=== PATIENT | female | born 1940 | race Caucasian/White ===

== ENCOUNTER → 2018-01-29 10:26 | Outpatient (CLI) | payer MEDICARE, OTHER, SELFPAY | PROVIDERS: Family Provider Nurse Practitioner; PCP Nurse Practitioner; Visit Provider Internal Medicine Hematology & Oncology | DX: Z12.31 Encounter for screening mammogram for malignant neoplasm of breast (principal); Z78.0 Asymptomatic menopausal state; C91.10 Chronic lymphocytic leukemia of B-cell type not having achieved remission | CPT/HCPCS: 77063; 77067 ==

== ENCOUNTER 2018-10-06 20:42 | Emergency (ER) | payer MEDICARE, OTHER, SELFPAY ==
[2018-09-13 15:13] VITALS: BMI 22.7
[2018-10-06 20:43] VITALS: BP 147/78; PULSE 78; RESP 16; TEMP 36.3; O2SAT 96; BMI 21.9
--- NOTE | 2018-10-06 21:28 | CT_ITS ---
HISTORY: FALL DOWN STAIRS EXAM/TECHNIQUE: CT Spine Lumbar W/O Contrast: Multiplanar reformats provided. COMPARISON: None. FINDINGS: # of images incl. paperwork: 364 Moderate acute compression fracture of the T12 vertebral body with minimal retropulsion but no significant spinal canal narrowing. No apparent extension into the posterior elements. No other acute fracture. Moderate chronic compression fracture L5. Bony demineralization. Mild 1 mm degenerative anterolisthesis of L5 on S1. Alignment otherwise anatomic. At L4-5, moderate diffuse disc bulge and severe bilateral set degeneration causes high-grade spinal canal narrowing. Only mild foraminal narrowing. Less prominent degenerative changes at other levels; no other high-grade spinal canal narrowing. Mild prevertebral edema adjacent to the T12 fracture. No other acute finding in the paraspinal soft tissues. Calcific atherosclerosis. CT/Spine Lumbar without Contrast IMPRESSION: Moderate acute compression fracture of the T12 vertebral body. Other chronic findings as above. Individualized dose optimization techniques were used for this CT. at 2201 Reported and signed by: Marc Kelly MD Electronically Signed: Marc Kelly, at 22:00 EDT Tel , Service support ,
[2018-10-06] MEDS: HYDROcodone Bitartrate/Apap 5/325 Tablet PO ×2 (21:32→22:54)
[2018-10-06] MEDS: Ondansetron ODT 4 MG Tablet PO (21:32)
--- NOTE | 2018-10-06 22:30 | ED.VISSUMM ---
- ER Visit Summary Date of Service: 10/06/18 Chief Complaint: Back pain History of Present Illness: The patient is a 78 F who states that she was almost down stairs when she thought she was early on the ground and sustained a forward fall with a twist. She has pain in her lower back. She has midline pain and around T11 and T12. She also has pain slightly inferior in the L3-L4 region. She denies any bowel or bladder dysfunction. No paresthesias. No leg weakness. She has a special needs son at home. Physical Examination: Afebrile vital signs stable Gen: Well-nourished well-developed Head: Normocephalic atraumatic Eyes: Perrl EOMI ENT: TMs clear no rhinorrhea moist mucous membranes Neck: Supple no lymphadenopathy no JVD nontender CVS: Regular rate rhythm no murmurs normal S1-S2 Respiratory: No distress clear to auscultation bilaterally chest nontender Abdomen: Soft nontender nondistended normal bowel sounds no masses Back: She with tenderness in the T11-T12 area and diffusely through the lower lumbar region. She has painful range of motion. Extremity: Nontender no edema Skin: Normal color no rash Neuro: alert orientated ?3 CN II-XII intact normal strength sensation reflexes Psych: Normal affect normal mood Test Results: CT demonstrates an acute moderate T12 compression fracture Emergency Department Course and Treatment: Patient received [place]. I also gave her an Ativan at her request for her anxiety. Talk to the patient about admitting for pain control concern for her well-being at home. She states that because of her son's needs she cannot stay. I will send her home with some [place] tonight and write a prescription for same. I have asked that she called her doctor's office tomorrow. I will leave a message for social work to contact her tomorrow to see what we can do to help her. She was advised that she may return at any time if she has concerns or is worsening. I have paged her primary care physician. Impression: 1. T12 compression fracture This note was generated with [employer] Network[employer] software. It may contain incorrect words, spelling, and punctuation that were not noted in review of the chart prior to signing ED Disposition - Plan for ED Patient: Disposition: Home or Assisted Living Instructions: ED Fx Comp Vertebral Prescriptions: Hydrocodone Bitart/Apap 5-325 [[place] 5MG-325MG] 1 tablet PO Q6H PRN PRN 3 Days #12 tablet PRN Reason: Pain Referrals: Taylor Gross, FLIGHT OPERATIONS INSPECTOR-C [Primary Care Provider] - As soon as possible
--- NOTE | 2018-10-06 22:35 | ED.DCSUM_ITS ---
- ER Visit Summary Date of Service: 10/06/18 Chief Complaint: Back pain History of Present Illness: The patient is a 78 F who states that she was almost down stairs when she thought she was early on the ground and sustained a forward fall with a twist. She has pain in her lower back. She has midline pain and around T11 and T12. She also has pain slightly inferior in the L3-L4 region. She denies any bowel or bladder dysfunction. No paresthesias. No leg weakness. She has a special needs son at home. Physical Examination: Afebrile vital signs stable Gen: Well-nourished well-developed Head: Normocephalic atraumatic Eyes: Perrl EOMI ENT: TMs clear no rhinorrhea moist mucous membranes Neck: Supple no lymphadenopathy no JVD nontender CVS: Regular rate rhythm no murmurs normal S1-S2 Respiratory: No distress clear to auscultation bilaterally chest nontender Abdomen: Soft nontender nondistended normal bowel sounds no masses Back: She with tenderness in the T11-T12 area and diffusely through the lower lumbar region. She has painful range of motion. Extremity: Nontender no edema Skin: Normal color no rash Neuro: alert orientated ?3 CN II-XII intact normal strength sensation reflexes Psych: Normal affect normal mood Test Results: CT demonstrates an acute moderate T12 compression fracture Emergency Department Course and Treatment: Patient received [place]. I also gave her an Ativan at her request for her anxiety. Talk to the patient about admitting for pain control concern for her well-being at home. She states that because of her son's needs she cannot stay. I will send her home with some [place] tonight and write a prescription for same. I have asked that she called her doctor's office tomorrow. I will leave a message for social work to contact her tomorrow to see what we can do to help her. She was advised that she may return at any time if she has concerns or is worsening. I have paged her primary care physician. Impression: 1. T12 compression fracture This note was generated with T[employer] software. It may contain incorrect words, spelling, and punctuation that were not noted in review of the chart prior to signing ED Disposition - Plan for ED Patient: Disposition: Home or Assisted Living Instructions: ED Fx Comp Vertebral Prescriptions: Hydrocodone Bitart/Apap 5-325 [[place] 5MG-325MG] 1 tablet PO Q6H PRN PRN 3 Days #12 tablet PRN Reason: Pain Referrals: Taylor Gross, ARCHITECTURAL DRAFTING INSTRUCTOR-C [Primary Care Provider] - As soon as possible
[2018-10-06 23:28] VITALS: RESP 16; O2SAT 97
== END 2018-10-06 23:29 | disposition home or self-care (01) ==
PROVIDERS: Emergency Provider Emergency Medicine; Family Provider Nurse Practitioner; PCP Nurse Practitioner
DX: S22.089A Unspecified fracture of T11-T12 vertebra, initial encounter for closed fracture (principal); W10.9XXA Fall (on) (from) unspecified stairs and steps, initial encounter; Y93.9 Activity, unspecified; Y92.9 Unspecified place or not applicable; F41.9 Anxiety disorder, unspecified; I10 Essential (primary) hypertension
CPT/HCPCS: 72131; 99283

== ENCOUNTER → 2019-04-13 13:42 | Outpatient (CLI) | payer MEDICARE, OTHER, SELFPAY ==
[2019-03-28 13:55] VITALS: BMI 20.4
[2019-04-13 14:00] LABS: Potassium 4.2 mmol/L (3.5-5.1)
== END ==
PROVIDERS: Family Provider Nurse Practitioner; PCP Nurse Practitioner; Visit Provider Nurse Practitioner
DX: E78.5 Hyperlipidemia, unspecified (principal)
CPT/HCPCS: 84132

== ENCOUNTER → 2019-05-09 09:44 | Outpatient (CLI) | payer MEDICARE, OTHER, SELFPAY ==
[2019-03-28 13:55] VITALS: BMI 20.4
--- NOTE | 2019-05-09 09:46 | BI_ITS ---
MAMMOGRAPHY - BILATERAL SCREENING REASON FOR EXAM: Female, 78 years old. Routine annual screening examination. PERTINENT HISTORY: Sister with breast cancer. TECHNIQUE: Digital bilateral breast zari (3D mammographic acquisition) in the CC and MLO projections. 2-D mediolateral oblique (MLO) and craniocaudad (CC) views of both breasts were obtained. CAD: Full Field Digital Mammography with Computer Added Detection was performed. COMPARISON: Comparison is made with prior study of January 29, 2018 and January 28, 2017. FINDINGS: Breast Composition: The breasts are heterogeneously dense, which may obscure small masses. There are no dominant masses or suspicious calcifications. No other significant abnormalities are identified. There has been no significant change since the prior study. BI/SCREEN MAMM (CAD) W/ZARI BILAT IMPRESSION: Stable bilateral screening mammogram. Yearly follow-up mammogram recommended. (A) ASSESSMENT CATEGORY: BIRADS Category 1: Negative. A letter regarding these results will be sent to the patient by the facility within 30 days. Approximately 10% of breast cancers are not detected by mammography. A normal mammogram should not delay biopsy of a clinically suspicious abnormality. [id number] Electronically Signed: Mk Burch, at 12:08 EST , Service support ,
--- NOTE | 2019-05-09 09:48 | BD_ITS ---
STUDY: DUAL ENERGY X-RAY ABSORPTIOMETRY / DXA REASON FOR EXAM: Female, 78 years old. The patient is postmenopausal. Loss of height. TECHNIQUE: Bone Mineral Density (BMD) measurements of lumbar spine and bilateral hips were obtained. COMPARISON: Comparison is made with prior examination dated January 28, 2017. FINDINGS: Lumbar Spine (L1-L4): g/cm2 (0.977) / T-score (-1.9) / Z-score (-0.1) Findings are suggestive of osteopenia with a moderate fracture risk. Increased kyphosis. Almost complete collapse of the T12 vertebrae. Left Femur Total: g/cm2 (0.824) / T-score (-1.5) / Z-score (0.4) Left Femoral Neck: g/cm2 (0.736) / T-score (-2.2) / Z-score (-0.1) Right Femur Total: g/cm2 (0.761) / T-score (-2.0) / Z-score (-0.1) Right Femoral Neck: g/cm2 (0.712) / T-score (-2.3) / Z-score (-0.3) The T-Scores on the most recent prior examination were: Lumbar Spine (L1-L4): There has been improvement of bone density since the previous examination. Left Femur Total: which represents an improvement of 3.4%. Right Femur Total: which represents an improvement of 3.7%. BD/Dexa Bone Density Study IMPRESSION: The patient is considered osteopenic as outlined below according to World Rex Organization (WHO) criteria with a high fracture risk. There has been improvement of bone density since the previous examination. Reference Information: The T-score is the number of standard deviations above or below the standard which is normal for young adults at their peak bone mineral density. The World Health Organization (WHO) interprets the T-scores as follows: Above -1 Normal bone density Between -1 and -2.5 Osteopenia Equal to / or below -2.5 Osteoporosis As a practical clinical guideline, osteopenia may be graded as follows: Mild -1 through -1.5 Moderate -1.6 through -2.0 Severe -2.1 through -2.4 The Z-score is the number of standard deviations above or below age-matched controls. A Z-score of less than -1.5 would be considered abnormal. References: 1. NIH Osteoporosis and Related Bone Diseases http://www.osteo.org 2. International Society for Clinical Densitometry http://www.iscd.org 3. National Osteoporosis Foundation http://www.nof.org Electronically Signed: Mk Burch, at 15:39 EST , Service support ,
== END ==
PROVIDERS: Family Provider Nurse Practitioner; PCP Nurse Practitioner; Referring Provider Nurse Practitioner; Visit Provider Nurse Practitioner
DX: M81.0 Age-related osteoporosis without current pathological fracture (principal); Z12.31 Encounter for screening mammogram for malignant neoplasm of breast; Z80.3 Family history of malignant neoplasm of breast; Z78.0 Asymptomatic menopausal state
CPT/HCPCS: 77063; 77067; 77080

== ENCOUNTER 2019-11-15 05:54 | Day surgery (SDC) | payer MEDICARE, OTHER, SELFPAY ==
--- NOTE | 2019-11-08 02:55 | HP_ITS ---
Intake Vital Signs 11/08/19 BMI 20.7 11/08/19 Height 5 ft 2.6 in 11/08/19 Weight: 123 lb 11/08/19 BMI 22.0 11/08/19 BP 143/85 H 11/08/19 Blood Pressure Location Rt brachial 11/08/19 Position Sitting 11/08/19 Respiration 18 11/08/19 Pulse 82 11/08/19 Pulse Source Monitor 11/08/19 Temp 97.8 F 11/08/19 Temp Source Temporal 11/08/19 Pulse Oximetry (%) 95 11/08/19 Oxygen Delivery Method room air Intake Visit Reasons: PORT PLACEMENT Chief Complaint: port placement Decorating Inspector Required: No Is patient in pain?: No Allergies POLLEN Adverse Reaction (Mild, Uncoded 11/08/19 14:32) Other Medications Multivitamin [Multiple Vitamins] 1 ea PO DAILY 01/06/17 [History Confirmed 11/08/19] Ibandronate Sodium [Boniva] 150 mg PO Q30D 06/23/17 [History Confirmed 11/08/19] Calcium Carbonate [Calcium] 2 tab PO BID 12/01/17 [History Confirmed 11/08/19] Lorazepam [Ativan] 0.5 mg PO DAILY PRN PRN 12/01/17 [History Confirmed 11/08/19] Cholecalciferol (Vitamin D3) [Vitamin D3] 2,000 unit PO DAILY 07/06/18 [History Confirmed 11/08/19] Hydrochlorothiazide 6 mg PO DAILY 10/06/18 [History Confirmed 11/08/19] Naproxen Sodium [Aleve] 220 mg PO DAILY PRN 03/28/19 [History Confirmed 11/08/19] Guaifenesin [Mucinex] 600 mg PO BID PRN 06/19/19 [History Confirmed 11/08/19] PFS Medical History Compression fracture (Acute) History of urinary tract infection (Acute) History of pneumonia (Acute) Measles (Acute) Mumps (Acute) bilateral ankle surgery (Acute) varicose veins (Acute) Hypertension (Chronic) Surgical History History of foot surgery (Acute) Family History Father Lung cancer Mother CVA (cerebral vascular accident) Social History (Updated 11/08/19 @ 14:[address] Liliam Zelaya MD) Smoking Status: Former smoker HPI HPI HPI: JOO BROOKS, is a 79 F who presents to the office today for HPI HPI Surgical H&P: Yes HPI: JOO BROOKS, is a 79 F who presents to the office today for port placement due to CLL. Patient's hemoglobin did drop below 10 for her hemoglobin tests Dr. Yates plan to start patient on chemotherapy. Patient's white blood cell count has been about 400. Patient does have lymphadenopathy cervical and axillary denies any pain or any other symptoms. ROS General General: No weight change, appetite, fatigue, colon cancer, breast cancer or weakness HEENT HEENT: No difficulty swallowing, eye injury, eye surgery, swollen glands or hoarseness Endo Endocrine: No thyroid disease, diabetes mellitus, thyroid cancer, Hair loss, heat intolerance or cold intolerance Skin Skin: No rash or changing moles Breast Breast: Yes nipple discharge; no left breast lump, right breast lump, breast pain, abnormal mammogram, abnormal US or breast enlargement Musc Musculoskeletal: Yes back problems; no arthritis, rheumatoid arthritis, gout or joint pain Cardio Cardiovascular: Yes high blood pressure; no murmur, pacemaker, heart disease, atrial fibrillation, heart attack, heart stent, palpitations, shortness of breat with exertion or chest pain Psych Psychiatric: Yes anxiety; no depression or hearing voices Resp Respiratory: No shortness of breath, No sleep apnea, No cough, No COPD, No asthma, No emphysema, No wheezing Gastro Gastrointestinal: No abdominal pain, No nausea or vomiting, No diarrhea, No constipation, No blood in stool, No acid reflux, Yes hemorrhoids, No ulcers, No gallbladder problem, No black,tarry stools Darryn Hematologic: No blood thinners, Yes blood disorders, No bleeding, Yes anemia, No blood clots Neuro Neurologic: No system reviewed and no additional complaints, except as docu, No as per HPI, No abnormal walking, No abnormal hearing, No abnormal movements, No abnormal speech, No behavioral changes, No burning sensations, No confusion, No seizure-like activity, No unsteadiness, No dizziness, No localized weakness, No frequent falls, No headache(s), No lack of coordination, No loss of vision, No memory loss, No numbness, No other visual disturbances, No radiating pain, No restless legs, No sensory deficit, No fainting, No tingling, No tremor(s), No weakness, No other Exam Const General: cooperative, comfortable, no acute distress, well developed Neck Lymphatic: lymphadenopathy (Bilateral upper cervical) Chest Chest palpation & inspection: normal inspection of the chest, normal palpation of entire chest wall Breast Palpation: Yes nipple discharge Cardio Heart Sounds: no murmurs GI Palpation: soft Psych Affect: normal affect Assessment & Plan Problems 1. Adjustment and management of vascular access device Z45.2 2. CLL (chronic lymphocytic leukemia) C91.10 3. Anemia D64.9 Plan I have discussed above with the patient- Port-a-Cath placement. Right possible left Patient has been counseled as to the risks/benefits of the procedure. I have explained the risks of the surgery, including but not limited to: infection, bleeding, injury to any blood vessels/nerves, injury to lungs (such as pneumothorax or hemothorax and need for chest tube), not having any access, nonfunctioning of port due to thrombosis, infection of port, etc. the patient understands and agrees to proceed. I have answered all the patient's questions to the patient?s satisfaction and the patient has no further questions. Liliam Zelaya M.D. Pager: [phone] [facility] [address] [place] [address], [address] [place] [address] Office: [phone] Plan Detail Follow Up We will schedule port placement for 11/14 Coding Level of Care Code Off vis,new,level 3 Diagnoses Adjustment and management of vascular access device Z45.2 CLL (chronic lymphocytic leukemia) C91.10 Anemia D64.9 11/08/19 6082 <Electronically signed by Liliam Taylor am, MD> Date _ Liliam Zelaya MD I have re-examined the patient. There are no clinical changes since date of exam. We discussed the current risks associated with COVID-19. While it is understood that there is a community spread of COVID-19, the risk of abelino COVID-19 while at [facility] ([facility]) is very low; however, the risk cannot be completely mitigated because of the community spread of the disease. We discussed in detail the risk of exposure to and/or potential harm posed by the COVID-19 virus with having a surgery/procedure at this time versus the risk of delaying the surgery/procedure. It is not possible to know either the risk of delaying the surgery or procedure or chance of getting an infection with perfect accuracy, but a joint decision was made to proceed at this time with the scheduled surgery/procedure as indicated on the consent form. Patient was notified that we will need to comply with any screening or testing [facility] wishes to perform or that surgery may be delayed for any positive results.
[2019-11-08 14:32] VITALS: BMI 20.7
[2019-11-15 06:17] VITALS: BP 147/79; PULSE 69; RESP 16; TEMP 36.6; O2SAT 97; BMI 21.5
[2019-11-15] MEDS: Lactated Ringers 1,000 ML 100 ML IV (07:27)
[2019-11-15] MEDS: Bupivacaine Mpf 0.5% 30 ML VIAL (07:34)
[2019-11-15] MEDS: Cefazolin 2 GM in 0.9% Normal Saline 100 ML IV (07:37)
--- NOTE | 2019-11-15 08:25 | PCM.OPRPT ---
Report of Operation Date of Procedure: 11/15/19 Pre-Operative Diagnosis: z45.2, CLL Post-Operative Diagnosis: Same Surgery/Procedure Performed:: 1. Insertion of right IJ Port-A-Cath. 2. Use of ultrasound. 3. Use of fluoroscopy Type of Anesthesia:: Local MAC Anesthesiologist: Augusto Veliz Special Medications: Ancef 2 g IV x1 Specimen's removed: None Estimated Blood Loss (mL): < 10 cc Fluids Replaced: 500 cc Description of Procedure: After informed consent was given, the patient was brought to the operating room and placed in the supine position. Appropriate time out protocol was followed. He was then given IV conscious sedation for anesthesia. The patient's bilateral upper chest and neck were then prepped with a surgical skin preparation and sterile surgical drapes were placed. After proper landmarks were ascertained, the skin at the upper right chest area was then infiltrated with 1:1 mixture of 1% lidocaine with epinephrine and 0.5% marcaine. A needle trocar was then inserted into the right internal jugular vein with ultrasound guidance-multiple vessels were viewed with u/s and the right IJ was chosen-- and there was good aspiration of venous blood. A wire was then threaded into the needle trocar and this was visualized under fluoroscopy to ensure that the wire was in the superior vena cava. Once this was done, then the needle trocar was removed. A small skin mert was made with an 11 blade knife at the wire entrance site. The dilator with the introducer sheath attached was then placed over the wire into the right internal jugular vein via the Seldinger technique and this was visualized under fluoroscopy. The dilator and sheath were in proper position as visualized by fluoroscopy. A subcutaneous pocket was then created caudad to the catheter insertion site. A transverse skin incision was made after the skin and subcutaneous tissues were infiltrated with local anesthetic. Blunt dissection was then used to create a space large enough for placement of the subcutaneous port. The catheter was then tunneled into the subcutaneous pocket. The wire and dilator were then removed. The catheter was then threaded into the introducer sheath and was positioned with its tip at the junction of the superior vena cava and the right atrium as visualized under fluoroscopy. The excess catheter was transected. The catheter was then attached to the subcutaneous port using manufacturers guidelines. The catheter was flushed with a heparin saline mixture prior to placement. Hemostasis was carefully controlled with electrocautery. The port was sutured to the subcutaneous fascia using 2-0 Vicryl suture at two sites. The port was then placed in the subcutaneous pocket. The incision were reapproximated with interrupted subdermal 3-0 vicryl sutures. The skin was reapproximated with 3-0 nylon suture in a interrupted fashion. Steristrips were used for reinforcement of the skin closure at IJ insertion site and a sterile opsite dressings were applied. The patient tolerated the procedure well. Implants Used: Bard PowerPort isp M.R.I. 6 Fr Lot [id number] ref [id number] Grafts/Implants Used: [employer] PowerPort isp M.R.I. 6 Fr Lot [id number] ref [id number] - Complications none
--- NOTE | 2019-11-15 08:29 | DCINST_ITS ---
Discharge Diet: Light diet - advance as tolerated Lifting Restrictions: no lifting > 10 lb on right arm Call your doctor if your incision/area has: Continuous Slow Oozing, Sudden Increased Bleeding, Increased Pain/ Swelling, Increased Redness, Foul Smelling Discharge, Swelling at the incision site Call your doctor if you observe: Fever of 101 or Higher Remove Dressing in (days):: 3 - Okay to keep OpSite on port site for 3 days okay to remove the neck site tomorrow, Steri-Strips down for 7 to 10 days after 10 days okay to remove Allergies/Adverse Reactions: Allergies POLLEN Adverse Reaction (Mild, Uncoded 11/15/19 06:15) Other WATERY EYES, SNEEZING Medications to take at Discharge Multivitamin [Multiple Vitamins] 1 ea PO DAILY 01/06/17 Ibandronate Sodium [Boniva] 150 mg PO Q30D 06/23/17 Calcium Carbonate [Calcium] 2 tab PO BID 12/01/17 Lorazepam [Ativan] 0.5 mg PO DAILY PRN PRN 12/01/17 Cholecalciferol (Vitamin D3) [Vitamin D3] 2,000 unit PO DAILY 07/06/18 Hydrochlorothiazide 6.25 mg PO DAILY 10/06/18 Naproxen Sodium [Aleve] 220 mg PO DAILY PRN 03/28/19 Guaifenesin [Mucinex] 600 mg PO BID PRN 06/19/19 Acyclovir 400 mg PO BID 30 Days #60 tab 11/09/19 Allopurinol 300 mg PO DAILY 7 Days #7 tab 11/09/19 Lidocaine/Prilocaine [Lidocaine-Prilocaine Cream] 1 applicatio TP DAILY PRN PRN 30 Days #1 tube 11/09/19 Ondansetron [Zofran] 8 mg PO Q8H PRN PRN 10 Days #30 tab 11/09/19 Smz/Tmp Ds [Bactrim Ds] 1 tab PO DAILY 28 Days #12 tab 11/09/19 traMADol [Ultram (G)] 50 mg PO Q6H PRN PRN 2 Days #5 tablet 11/15/19 Primary Care Physician: Taylor Gross NP-C [Primary Care Provider] - Test Results: Test results from this visit will be discussed in further detail at your follow- up appointment, if applicable. Please Follow Up With: Robotham,Liliam, MD - After 5 PM and on the weekends if he have any concerns call [phone]. When: Call the office for f/u appointment in about 10 days for suture removal Proposed Discharge Date: 11/15/19
[2019-11-15 08:35] VITALS: BP 116/73; BP 147/79; PULSE 70; RESP 16; TEMP 36.6; O2SAT 95
[2019-11-15 08:40] VITALS: BP 118/76; BP 147/79; PULSE 71; RESP 16; O2SAT 97
--- NOTE | 2019-11-15 08:40 | RAD_ITS ---
STUDY: X-RAY CHEST REASON FOR EXAM: Female, 79 years old. Post op port placement TECHNIQUE: Single AP portable view of the chest. COMPARISON: None. FINDINGS: EKG leads overlie the chest. A right subclavian port is in place, tip is in the distal SVC, no pneumothorax or mediastinal shift. Lungs are expanded without a superimposed acute pulmonary process. There is no demonstrated pleural abnormality. Normal size heart. Normal mediastinum and flakito. Normal visualized pulmonary arteries. Normal visualized aortic arch and descending thoracic aorta. There are diffuse degenerative changes of the visualized thoracic spine. Normal visualized ribs, clavicles, and shoulders. There is no demonstrated abnormality of the visualized soft tissue structures of the upper abdomen. RAD/CXR for Line Placement IMPRESSION: Right subclavian port tip in the distal SVC, no pneumothorax or mediastinal shift. No acute pulmonary process Electronically Signed: Michael Chang MD at 8:56 EDT , Service support ,
[2019-11-15 08:45] VITALS: BP 123/75; BP 147/79; PULSE 75; RESP 16; O2SAT 96
[2019-11-15 08:50] VITALS: BP 128/73; BP 147/79; PULSE 67; RESP 16; TEMP 36.6; O2SAT 98
[2019-11-15 09:20] VITALS: BP 140/85; BP 147/79; PULSE 71; RESP 16; TEMP 36.9; O2SAT 95
== END 2019-11-15 09:40 | disposition home or self-care (01) ==
LOC: SDC 05:54 → AC 05:55
PROVIDERS: Anesthesiology; PCP Nurse Practitioner; Referring Provider Surgery; Visit Provider Surgery
PROC: (CPT 36561; principal; 2019-11-15 07:15)
DX: Z45.2 Encounter for adjustment and management of vascular access device (principal); C91.10 Chronic lymphocytic leukemia of B-cell type not having achieved remission; Z11.59 Encounter for screening for other viral diseases; I10 Essential (primary) hypertension; Z87.440 Personal history of urinary (tract) infections; Z87.01 Personal history of pneumonia (recurrent); Z79.899 Other long term (current) drug therapy; Z87.891 Personal history of nicotine dependence
CPT/HCPCS: 00532; 36561; 71045; 77001; 87635; G2023; U0003

== ENCOUNTER 2019-11-30 13:36 | Emergency (ER) | payer MEDICARE, OTHER, SELFPAY ==
[2019-11-27 10:12] VITALS: BMI 19.8
[2019-11-30 13:37] VITALS: BP 139/81; PULSE 98; RESP 18; TEMP 37.3; O2SAT 97; BMI 21.0
[2019-11-30 14:36] LABS: Absolute Lymphocyte Count 1.64 X10^3/uL (0.83-4.51); Absolute Neutrophil Count 12.3 X10^3/uL (2.0-7.7); Basophil# 0.05 X10^3/uL; Basophil% 0.3 % (0-1); Eosinophil# 0.02 X10^3/uL; Eosinophils% 0.1 % (0-5); Hemoglobin 10.1 g/dL (12.0-15.0); Lymphocyte # 1.64 X10^3/ul (4.0); Lymphocyte % 11.1 % (19-41); Mean Corp Hgb Conc 31.6 g/dL (32-36); Mean Corpuscular Hgb 30.6 pg (27.0-32.0); Mean Platelet Vol. 11.4 fl (6.2-12.0); Monocyte# 0.58 X10^3/uL; Monocyte% 3.9 % (0-10); NRBC Flagged by Analyzer 0 % (0-5); Neutrophil # 12.32 X10^3/uL (2.7-7.7); Neutrophil % 83.6 % (47-70); Platelet Count 120 K/mm3 (150-450); RBC Distribution Width CV 14.2 % (11.6-14.6); RBC Distribution Width SD 49.3 fl (35.1-43.9); White Blood Count 14.8 K/mm3 (4.4-11.0)
[2019-11-30 14:49] LABS: Bacteria 0 SEEN /hpf (None Seen); Color, Urine Yellow (Yellow); Glucose, Dipstick Normal (Normal); Ketone-Dipstick Negative (Negative); Leukocyte Esterase-Dipstick 25 /ul (Negative); Mucous, Urine 0 SEEN /hpf (<or=2+); Nitrite-Dipstick Negative (Negative); Occult Blood-Urine 25 /ul (Negative); Protein-Dipstick Negative (Negative); Specific Gravity, Urine 1.015 (1.002-1.030); Squamous Epithelial Cells - UA 0 SEEN /hpf (5-10); Urine Bilirubin Dipstick Negative (Negative); Urine Clarity Sl. Cloudy (Clear); Urine Urobilinogen Normal (Normal)
[2019-11-30 14:50] LABS: Anion Gap 7 (5-15); BUN 20 mg/dL (7-18); BUN/Creat Ratio 23.4 RATIO (10-20); Calcium,Total 8.6 mg/dL (8.5-10.1); Chloride 106 mmol/L (98-107); Creatinine, Serum 0.85 mg/dL (0.55-1.02); EST Glomerular Filtration Rate 68 mL/min (>60); Est Glom Filt Rate - Afr Amer 83 mL/min (>60); Estimated Creatinine Clearance 43.14 ml/min; Glucose 102 mg/dL (74-106); Potassium 4.2 mmol/L (3.5-5.1); Sodium Level 137 mmol/L (136-145)
[2019-11-30 14:55] LABS: Red Blood Cells-Urine 0-5 SEEN /hpf (0-5); White Blood Cells 0-5 SEEN /hpf (0-5)
--- NOTE | 2019-11-30 15:32 | ED.DCSUM_ITS ---
History of Present Illness Chief Complaint: Fever Narrative: Patient presenting for evaluation secondary to a fever. Patient has an underlying history of leukemia and receiving chemotherapy for this. Last chemotherapy was around a week ago. Patient states that today she started to develop feelings of fever, and did note a objective fever at home over 100.4. She states that her T-max was around 101. Patient denies any other associated symptoms however. She denies any sore throat, cough, nausea, vomiting, diarr hea, abdominal pain, dysuria, headaches, neck stiffness. Patient states that she is presenting because she was told to come in anytime she has a fever due to her chemotherapy status. Review of systems otherwise negative. Past Medical History - Allergies and Home Meds Allergies/Adverse Reactions: Allergies POLLEN Adverse Reaction (Mild, Uncoded 11/27/19 10:11) Other WATERY EYES, SNEEZING Primary Care Physician: Taylor Gross NP-C [Primary Care Provider] - Prior records reviewed: Yes Past Medical History: - - CLL Lives: Alone Smoking Status: Never smoker Alcohol: None Drugs: None Review of Systems All systems negative except as indicated General: Reports: Fever Eyes: Denies: Visual changes - bilaterally, Diplopia ENT: Denies: Rhinorrhea, Sore throat Cardiovascular: Denies: Chest pain, Palpitations Respiratory: Denies: Dyspnea, Cough, Dyspnea on exertion Gastrointestinal: Denies: Abdominal pain, Nausea, Vomiting, Diarrhea, Melena, Hematochezia Genitourinary: Denies: Dysuria, Hematuria, Frequency Musculoskeletal: Denies: Back pain, Extremity Pain Skin: Denies: Rash, Wounds Neurological: Denies: Headache, Weakness, Numbness Physical Exam Vital Signs/Narrative: Vital Signs Temp Pulse Resp BP Pulse Ox 11/30/19 13:37 99.1 F 98 18 139/81 H 97 Inital Vital Signs reviewed: Yes General: Well nourished, Well developed, No Acute Distress Head: Normocephalic, Atraumatic Eyes: Perrl, EOMI ENT: Moist mucous membranes, No rhinorrhea Neck: Supple, Nontender, - - No meningismus Cardiovascular: Regular rate, Regular rhythm, No murmurs Respiratory: No distress, CTA bilaterally, Chest nontender, - - Right anterior chest port clean dry and intact Abdomen: Soft, Nontender, Nondistended, Normal bowel sounds Back: Nontender, Normal Inspection Extremities: Nontender, No edema Skin: Normal color, No rash Neurological: Alert, Oriented x3, Cranial nerves II-XII grossly intact, Normal Strength, Normal Sensation Psychological: Normal affect, Normal Mood Diagnostic/Tx/Re-eval Laboratory Data 11/30/19 11/30/19 11/30/19 12:24 12:24 14:40 WBC 14.8 H RBC 3.30 L Hgb 10.1 L Hct 32.0 L MCV 97.0 MCH 30.6 MCHC 31.6 L RDW Std Deviation 49.3 H RDW Coeff of Malu 14.2 Plt Count 120 L MPV 11.4 Immature Gran % (Auto) 1.000 H Neut % (Auto) 83.6 H Lymph % (Auto) 11.1 L [place] % (Auto) 3.9 Eos % (Auto) 0.1 Baso % (Auto) 0.3 Absolute Neuts (auto) 12.3 H Absolute Lymphs (auto) 1.64 Nucleated RBC % 0 Sodium 137 Potassium 4.2 Chloride 106 Carbon Dioxide 24.0 Anion Gap 7 BUN 20 H Creatinine 0.85 Estim Creat Clear Calc 43.14 Est GFR (MDRD) Af Amer 83 Est GFR (MDRD) Non-Af 68 BUN/Creatinine Ratio 23.4 H Glucose 102 Calcium 8.6 Urine Color Yellow Urine Clarity Sl. Cloudy Urine pH 6.0 Ur Specific [place] 1.015 Urine Protein Negative Urine Glucose (UA) Normal Urine Ketones Negative Urine Occult Blood 25 H Urine Nitrite Negative Urine Bilirubin Negative Urine Urobilinogen Normal Ur Leukocyte Esterase 25 H Urine RBC 0-5 SEEN Urine WBC 0-5 SEEN Ur Squamous Epith Cells 0 SEEN Urine Bacteria 0 SEEN Urine Mucus 0 SEEN - Medical Decision Making Patient presents secondary to a fever at home in the setting of chemotherapy. I V was established laboratory studies and cultures were obtained. Patient's white blood cell count was found to be 14,000, but this is actually a mills improvement from around a month ago when it was 400,000. Patient's chemistries were negative, urinalysis was negative. I did inform the patient that potentially I would like to do a chest x-ray and she had a trepidations about that due to her cancer status, she has clear lungs and no respiratory complaints so this was foregone. Patient feels well and has been afebrile in the emergency department. At this point I feel the patient is appropriate for discharge. She will follow-up with oncology to follow her cultures, she understands signs and symptoms which to return. ED Disposition - Plan for ED Patient: Disposition: Home or Assisted Living Diagnosis: Fever Instructions: ED FUO Adult Additional Instructions: Follow-up with your oncologist for the results of your cultures
[2019-11-30 16:11] VITALS: BP 132/87; PULSE 95; RESP 17; TEMP 37.3; O2SAT 98
== END 2019-11-30 16:14 | disposition home or self-care (01) ==
PROVIDERS: Emergency Provider Emergency Medicine; PCP Nurse Practitioner
DX: R50.9 Fever, unspecified (principal); C91.10 Chronic lymphocytic leukemia of B-cell type not having achieved remission
CPT/HCPCS: 36415; 80048; 81001; 85025; 87040; 87086; 99282; A4216

== ENCOUNTER → 2019-12-06 10:44 | Outpatient (CLI) | payer MEDICARE, OTHER, SELFPAY ==
[2019-11-30 13:37] VITALS: BMI 21.0
--- NOTE | 2019-12-06 10:49 | RAD_ITS ---
STUDY: X-RAY CHEST REASON FOR EXAM: Female, 79 years old. FEVER X 1 WEEK TECHNIQUE: PA and lateral views of the chest. COMPARISON: Comparison is made with prior examination dated November 15, 2019. FINDINGS: A right-sided Port-A-Cath is in situ with the tip at the junction of the superior vena cava and right atrium. Since prior study, there has been a mild degree of increased markings at the right lung base. Blunting of both costophrenic angles. Follow-up is recommended. Normal size heart. Normal mediastinum and flakito. Normal visualized pulmonary arteries. There is atherosclerotic calcification of the aortic arch with tortuosity. There is demineralization of the osseous structures. Complete collapse of the lower dorsal vertebrae. Normal visualized ribs, clavicles, and shoulders. There is no demonstrated abnormality of the visualized soft tissue structures of the upper abdomen. RAD/Chest PA and Lateral IMPRESSION: Mild increased markings at the right lung base with blunting of both clustering angles. Radiographic follow-up is recommended. Electronically Signed: Mk Burch, at 11:13 EDT , Service support ,
== END ==
PROVIDERS: PCP Nurse Practitioner; Referring Provider Nurse Practitioner; Visit Provider Nurse Practitioner
DX: R53.1 Weakness (principal)
CPT/HCPCS: 71046

== ENCOUNTER 2019-12-11 23:18 | Inpatient (IN) | payer MEDICARE, OTHER, SELFPAY ==
[2019-12-11 23:20] VITALS: BP 118/62; PULSE 81; RESP 18; TEMP 37.1; O2SAT 96; BMI 23.9
--- NOTE | 2019-12-11 23:43 | CT_ITS ---
STUDY: CT ABDOMEN AND PELVIS WITHOUT CONTRAST REASON FOR EXAM: Female, 79 years old. FEELING FULL, CONSTIPATED, LBP, N/V, BLOATING. H/O CLL RADIATION DOSAGE (If Supplied By Facility): CTDIvol = ( 6.48 ) mGy, DLP = ( 291.18 ) mGycm TECHNIQUE: Transaxial images were obtained from the dome of the diaphragm to the symphysis pubis without oral contrast, and without intravenous contrast. Sagittal and coronal images were reconstructed. Individualized dose optimization techniques were used for this CT. COMPARISON: Prior report from CT lumbar spine October 06, 2018. No images available for comparison.. FINDINGS: Evaluation limited by lack of IV and oral contrast material. There is groundglass opacities within the visualized lungs. Small pleural effusions. Cardiomegaly. There is hepatomegaly with diffuse hepatic enlargement. Normal gallbladder and extrahepatic biliary system. Splenomegaly 13.5 cm. Normal pancreas. Normal bilateral adrenal glands. Normal right kidney. Normal left kidney. There is a small hiatal hernia. Evaluation of bowel is limited by lack of IV and oral contrast. No dilated loops of bowel by CT criteria. There are multiple colonic diverticula consistent with diverticulosis. Moderate stool in the colon. Small amount of fluid right lower quadrant. The appendix is visualized and appears normal. There is diffuse atherosclerotic calcification of the abdominal aorta, without a demonstrated aneurysm. Cannot evaluate for dissection due to lack of IV contrast. Nonspecific subcentimeter short axis mesenteric and retroperitoneal lymph nodes. Normal urinary bladder. Small amount of fluid within the pelvis, nonspecific. There is a small umbilical hernia containing fat. There are diffuse degenerative changes of the visualized lumbar spine. Minimal anterior listhesis L4 on L5. There is compression deformity of the L5 vertebral body with approximately 40%. There is T12 vertebral plana. There is retropulsion of fragments into the canal 6 mm with moderate canal narrowing. There is moderate to severe canal narrowing at L4-L5. CT/Abdomen/Pelvis without Cont IMPRESSION: Evaluation limited by lack of IV and oral contrast material. Multilevel degenerative changes of the spine. There is T12 and L5 compression fracture deformity. This was noted on prior report of October 06, 2018. No images were available at time of dictation for comparison. Fracture of L5 and T12 reported on prior imaging. If there is concern for an acute component consider MRI to further evaluate. Small bilateral pleural effusions. There is some groundglass opacities within the visualized aspects of the lungs, nonspecific. An atypical viral infectious process cannot be excluded. Recommend follow-up imaging of the chest to ensure resolution. Cardiomegaly. Hepatosplenomegaly. No hydronephrosis or nephrolithiasis. Moderate stool in the colon. No CT evidence for acute diverticulitis. Small amount of fluid within the abdomen and pelvis, nonspecific. Other findings as discussed above. Electronically Signed: Mohamud Her, at 1:18 EDT Tel , Service support ,
--- NOTE | 2019-12-11 23:49 | ED.VIS.GEN ---
History of Present Illness Chief Complaint: Abd Pain Informant: Patient Narrative: Stated she has been having decreased oral intake. She had nausea with vomiting yesterday. Decreased oral intake today. She is unsure if she is dehydrated. Her mouth is dry. She also feels bloated. She has not had a normal bowel movement for 3 days. Normally she goes every morning. She stated she is passing gas. No history of bowel obstruction. She has been treated for CLL. Her last chemotherapy was approximately 2 weeks ago. Her treatment is here in [place]. She saw her family doctor last Wednesday and was diagnosed with a pneumonia. She just finished azithromycin yesterday. She denies any urinary symptoms. She stated that she thinks she would feel a lot better if she does have a bowel movement. - Past Medical History (1) Encounter for education Status: Acute (2) Anemia Status: Chronic (3) CLL (chronic lymphocytic leukemia) Status: Chronic (4) Thrombocytopenia Status: Chronic Past Medical History - Allergies and Home Meds Allergies/Adverse Reactions: Allergies POLLEN Adverse Reaction (Mild, Uncoded 12/11/19 23:22) Other WATERY EYES, SNEEZING Primary Care Physician: Taylor Gross NP-C [Primary Care Provider] - Prior records reviewed: Yes Past Medical History: - - See problem list Surgical History: - - Reviewed Lives: With Family Smoking Status: Never smoker Alcohol: None Drugs: None Review of Systems General: Denies: Chills, Fever, Sweats Eyes: Denies: Visual changes - bilaterally, Diplopia ENT: Denies: Rhinorrhea, Sore throat Cardiovascular: Denies: Chest pain, Palpitations Respiratory: Denies: Dyspnea, Cough, Dyspnea on exertion Gastrointestinal: Reports: Abdominal pain, Nausea, Vomiting, Constipation. Denies: Diarrhea, Melena, Hematochezia Genitourinary: Denies: Dysuria, Hematuria, Frequency Musculoskeletal: Reports: Back pain. Denies: Extremity Pain Skin: Denies: Rash, Wounds Neurological: Reports: Weakness. Denies: Headache, Numbness Physical Exam Vital Signs/Narrative: Vital Signs Temp Pulse Resp BP Pulse Ox 12/11/19 23:20 98.8 F 81 18 118/62 96 General: Well nourished, Well developed, No Acute Distress Head: Normocephalic, Atraumatic Eyes: Perrl, EOMI ENT: Moist mucous membranes, No rhinorrhea Neck: Supple, Nontender Cardiovascular: Regular rate, Regular rhythm, No murmurs Respiratory: No distress, CTA bilaterally, Chest nontender Abdomen: Soft, Nontender, Nondistended, Normal bowel sounds Back: Nontender, Normal Inspection Extremities: Nontender, No edema Skin: Normal color, No rash Neurological: Alert, Oriented x3, Cranial nerves II-XII grossly intact, Normal Strength, Normal Sensation Psychological: Normal affect, Normal Mood Diagnostic/Tx/Re-eval - Medical Decision Making Patient given IV fluids and Zofran. Lab work chest x-ray and CT abdomen pelvis obtained.. Lab work shows a lipase greater than 1400 consistent with acute pancreatitis. She is never had this before. CBC shows a mild leukocytosis but down from previous. It is 12,000. Mild elevation in her alkaline phosphatase likely from her pancreatitis. Has an anemia of 8.8. This is down from previous level of 10 as she has chronic anemia. Patient did feel better after treatment. Chest x-ray shows no major abnormalities. CT abdomen pelvis shows small bilateral pleural effusions and nonspecific groundglass opacity. This is likely related to her recent pneumonia. I do not feel she needs acute antibiotics for her pancreatitis. She does not have a large stool burden. She has moderate stool in her colon. Patient will be discussed with the hospitalist and admitted ED Disposition - Plan for ED Patient: Disposition: Acute Care Hospital [facility] Diagnosis: Acute pancreatitis
[2019-12-12] VITALS (12 sets, daily range): BP systolic 97–120; BP diastolic 48–75; PULSE 98–117; RESP 20–26; TEMP 36.9–38.3; O2SAT 94–99; BMI 22.0; BMI 22.1
[2019-12-12 00:08] LABS: Absolute Lymphocyte Count 0.77 X10^3/uL (0.83-4.51); Absolute Neutrophil Count 10.6 X10^3/uL (2.0-7.7); Basophil# 0.02 X10^3/uL; Basophil% 0.2 % (0-1); Eosinophil# 0.01 X10^3/uL; Eosinophils% 0.1 % (0-5); Hematocrit 26.9 % (37-47); Hemoglobin 8.8 g/dL (12.0-15.0); Lymphocyte # 0.77 X10^3/ul (4.0); Lymphocyte % 6.4 % (19-41); Mean Corp Hgb Conc 32.7 g/dL (32-36); Mean Corpuscular Hgb 30.1 pg (27.0-32.0); Mean Corpuscular Volume 92.1 fL (81-99); Mean Platelet Vol. 10.1 fl (6.2-12.0); Monocyte# 0.59 X10^3/uL; Monocyte% 4.9 % (0-10); NRBC Flagged by Analyzer 0 % (0-5); Neutrophil % 87.6 % (47-70); Platelet Count 231 K/mm3 (150-450); RBC Distribution Width CV 14.6 % (11.6-14.6); RBC Distribution Width SD 48.6 fl (35.1-43.9); Red Blood Count 2.92 M/mm3 (4.2-5.4); White Blood Count 12.1 K/mm3 (4.4-11.0)
[2019-12-12] MEDS: 0.9% Normal Saline 1,000 ML 1000 ML IV (00:08)
[2019-12-12] MEDS: Ondansetron 4 MG/2 ML Vial IV (00:08)
--- NOTE | 2019-12-12 00:29 | RAD_ITS ---
STUDY: X-RAY CHEST REASON FOR EXAM: Female, 79 years old. GENERALIZED BODY PAIN TECHNIQUE: Single frontal view of the chest. COMPARISON: 12/06/2019 FINDINGS: Right chest wall port. Mild bibasilar alveolar disease. There is no demonstrated pleural abnormality. Stable cardiomediastinal silhouette. Normal mediastinum and flakito. Normal visualized pulmonary arteries. Normal visualized aortic arch and descending thoracic aorta. Normal visualized thoracic spine. There is degenerative osteoarthritis of the bilateral shoulders. There is no demonstrated abnormality of the visualized soft tissue structures of the upper abdomen. RAD/Chest 1 View (Portable) IMPRESSION: Mild bibasilar alveolar disease. Electronically Signed: Ranjan Alex MD at 0:45 EDT Tel , Service support ,
[2019-12-12 00:30] LABS: ALB/GLOB Ratio 0.9 RATIO (0.9-2.4); AST(SGOT) 10 U/L (15-37); Alanine Aminotransfer ALT/SGPT 32 U/L (13-56); Albumin, Serum 2.5 g/dL (3.2-5.0); Alkaline Phosphatase 171 U/L (45-117); Anion Gap 7 (5-15); BUN 21 mg/dL (7-18); BUN/Creat Ratio 37.3 RATIO (10-20); Calcium,Total 8.1 mg/dL (8.5-10.1); Chloride 105 mmol/L (98-107); Creatinine, Serum 0.56 mg/dL (0.55-1.02); EST Glomerular Filtration Rate 111 mL/min (>60); Est Glom Filt Rate - Afr Amer 134 mL/min (>60); Estimated Creatinine Clearance 38.35 ml/min; Globulin 2.8 g/dL (2.2-4.2); Glucose 107 mg/dL (74-106); Lipase 1435 U/L (73-393); Potassium 3.6 mmol/L (3.5-5.1); Protein, Total 5.3 g/dL (6.4-8.2); Sodium Level 134 mmol/L (136-145)
--- NOTE | 2019-12-12 01:51 | HP.PCM_ITS ---
Problem List (1) Acute pancreatitis Status: Acute (2) CLL (chronic lymphocytic leukemia) Status: Chronic History of Present Illness Date of Admission: 12/12/19 Chief Complaint: abdominal pain The patient is a 79 year old female patient with a past medical history of chronic lymphocytic leukemia who presents to the emergency room with abdominal pain. Onset of this abdominal pain began 1-1/2 weeks ago and has been progressively more painful over that time. Patient states she is having regular bowel movements but has had decreased appetite. The patient's last chemotherapy was approximately 1 month ago, however ,subsequent to that she was diagnosed by her primary care physician with pneumonia and treated with azithromycin. Currently she denies chest pain or shortness of breath but does have a fullness over her epigastrium and abdomen which she initially described as feeling constipated. Laboratory studies reveal a slightly elevated white blood cell count at 12,000, negative troponin, elevated lipase of 1435. Due to pancreatitis and dehydration the patient will be admitted for further management. Past Medical History Past Medical History (Chronic Problems): Chronic Problems (Last Reviewed 11/27/19 @ 10:11 by Maria Esther Hopkins) CLL (chronic lymphocytic leukemia) (Chronic) Thrombocytopenia (Chronic) Anemia (Chronic) Medical History: Medical History (Last Reviewed 11/27/19 @ 10:11 by Maria Esther Hopkins) CLL (chronic lymphocytic leukemia) (Chronic) C91.10 Thrombocytopenia (Chronic) D69.6 Anemia (Chronic) D64.9 Compression fracture OCTOBER 06, 2018 History of pneumonia Z87.01 History of urinary tract infection Z87.440 Measles B05.9 Mumps B26.9 PORT PLACEMENT NOVEMBER 15 2019 bilateral ankle surgery 5 varicose veins Hypertension I10 Allergies POLLEN Adverse Reaction (Mild, Uncoded 12/11/19 23:22) Other WATERY EYES, SNEEZING Home Medications: Ambulatory Orders Medication Instructions Recorded Multivitamin [Multiple Vitamins] 1 ea PO DAILY 01/06/17 Ibandronate Sodium [Boniva] 150 mg PO Q30D 06/23/17 Calcium Carbonate [Calcium] 1 tab PO DAILY 12/01/17 Lorazepam [Ativan] 0.5 mg PO DAILY PRN PRN 12/01/17 Cholecalciferol (Vitamin D3) 2,000 unit PO DAILY 07/06/18 [Vitamin D3] Hydrochlorothiazide 6.25 mg PO DAILY 10/06/18 Naproxen Sodium [Aleve] 220 mg PO DAILY PRN 03/28/19 Guaifenesin [Mucinex] 600 mg PO BID PRN 06/19/19 Acyclovir 400 mg PO BID 30 Days #60 tab 11/09/19 Allopurinol 300 mg PO DAILY 7 Days #7 tab 11/09/19 Lidocaine/Prilocaine 1 applicatio TP DAILY PRN PRN 30 11/09/19 [Lidocaine-Prilocaine Cream] Days #1 tube Ondansetron [Zofran] 8 mg PO Q8H PRN PRN 10 Days #30 tab 11/09/19 Smz/Tmp Ds [Bactrim Ds] 1 tab PO DAILY 28 Days #12 tab 11/09/19 traMADol [Ultram (G)] 50 mg PO Q6H PRN PRN 11/20/19 Surgical History: Surgical History (Last Reviewed 11/27/19 @ 10:11 by Maria Esther Hopkins) History of foot surgery Z98.890 Surgical History: - - Reviewed Lives: With Family Smoking Status: Never smoker Alcohol: None Drugs: None - *Family History Maternal Family History: Family History (Last Reviewed 11/27/19 @ 10:11 by Maria Esther Hopkins) Father Lung cancer Mother CVA (cerebral vascular accident) Son Waldenstrom's disease History Items: No pertinent history Review of Systems Constitutional: Denies: Chills, Fever, Weight Change HEENT: Denies: Head Aches, Sinus Congestion, Sinus Drainage Cardiovascular: Denies: Chest Pain, Palpitations Respiratory: Denies: Cough, Shortness of breath at rest, Sputum production Gastrointestinal: Reports: Abdominal Pain, Nausea. Denies: Vomiting Genitourinary: Denies: Dysuria Musculoskeletal: Denies: Joint Pain, Joint Tenderness Skin: Denies: Rash, Wounds Neurological: Denies: Numbness, Tingling, Focal weakness Psychiatric: Denies: Anxiety, Depression, Homicidal Ideations, Suicidal Ideations Hematologic/ Lymphatic: Denies: Easy Bruising, Easy Bleeding VTE Information - Inpt Only VTE Present on Admission: No VTE Mechan Device Prophylaxis: None VTE Pharm Prophylaxis ordered?: Yes Patient Problems: Active and Suspected Problems (Last Reviewed 11/27/19 @ 10:11 by Maria Esther Hopkins) Acute pancreatitis (Acute) - Physical Exam Vitals/I&O's: Vital Signs Temp Pulse Resp BP Pulse Ox 98.8 F 111 H 26 H 119/65 96 12/11/19 23:20 12/12/19 01:24 12/12/19 01:24 12/12/19 01:24 12/12/19 01:24 Oxygen Delivery Method Room Air Weight: 135 lb Body Mass Index (BMI) 23.9 General: Alert, Oriented x3, Cooperative HEENT: Atraumatic, Normocephalic Neck: Supple Lungs: Clear to auscultation, Normal air movement Cardiovascular: Regular rate, Normal S1, Normal S2, No murmurs, Tachycardic Abdomen: Bowel Sounds Present, Soft, Tender - epigastrium Extremities: No edema Skin: No rashes Musculoskeletal: No Tenderness to Palpation of Joints or Extremities Neurological: Neuro grossly intact Psych/Mental Status: Normal Affect, Appropriate Laboratory Results 12/12/19 00:00: WBC 12.1 H, RBC 2.92 L, Hgb 8.8 L, Hct 26.9 L, MCV 92.1, MCH 30.1, MCHC 32.7, RDW Std Deviation 48.6 H, RDW Coeff of [place] 14.6, Plt Count 231, MPV 10.1, Immature Gran % (Auto) 0.800, Neut % (Auto) 87.6 H, Lymph % (Auto) 6.4 L, [place] % (Auto) 4.9, Eos % (Auto) 0.1, Baso % (Auto) 0.2, Absolute Neuts (auto) 10.6 H, Absolute Lymphs (auto) 0.77 L, Nucleated RBC % 0 12/12/19 00:00: Sodium 134 L, Potassium 3.6, Chloride 105, Carbon Dioxide 22.0, Anion Gap 7, BUN 21 H, Creatinine 0.56, Estim Creat Clear Calc 38.35, Est GFR (MDRD) Af Amer 134, Est GFR (MDRD) Non-Af 111, BUN/Creatinine Ratio 37.3 H, Glucose 107 H, Calcium 8.1 L, Total Bilirubin 0.50, AST 10 L, ALT 32, Alkaline Phosphatase 171 H, Troponin I < 0.015, Total Protein 5.3 L, Albumin 2.5 L, Globulin 2.8, Albumin/Globulin Ratio 0.9, Lipase 1435 H Assessment/Plan All Active Problems (Last Reviewed 11/27/19 @ 10:11 by Maria Esther Hopkins) Encounter for education (Acute) Acute pancreatitis (Acute) Chronic Problems (Last Reviewed 11/27/19 @ 10:11 by Maria Esther Hopkins) CLL (chronic lymphocytic leukemia) (Chronic) Thrombocytopenia (Chronic) Anemia (Chronic) Plan 1. Acute pancreatitis?Place patient in medical surgical floor, make n.p.o., IV fluids normal saline at 125 cc/h, morphine 2 to 4 mg IV every 3 hours as needed pain, Zofran 4 mg IV every 6 hours as needed nausea, repeat CBC, CMP and lipase in the morning 2. DVT prophylaxis?low molecular weight heparin Inpatient E&M: [id number] Init Hosp L3
[2019-12-12] MEDS: 0.9% Saline Lock 10 ML Syringe IV (03:33)
[2019-12-12] MEDS: 0.9% Normal Saline 1,000 ML 125 ML IV ×3 (03:33→18:44)
[2019-12-12 03:48] LABS: Bacteria 0 SEEN /hpf (None Seen); Mucous, Urine 0 SEEN /hpf (<or=2+); Squamous Epithelial Cells - UA 0 SEEN /hpf (5-10)
[2019-12-12 03:51] LABS: Color, Urine Yellow (Yellow); Glucose, Dipstick Normal (Normal); Ketone-Dipstick Negative (Negative); Leukocyte Esterase-Dipstick Negative /ul (Negative); Nitrite-Dipstick Negative (Negative); Occult Blood-Urine 10 /ul (Negative); Protein-Dipstick Negative (Negative); Urine Bilirubin Dipstick Negative (Negative); Urine Clarity Clear (Clear); Urine Urobilinogen Normal (Normal)
[2019-12-12 03:58] LABS: Amorphous Sediment 1+; Calcium Oxalate Crystals Ur RARE /hpf (<or=2+); Red Blood Cells-Urine 0-5 SEEN /hpf (0-5); Transitional Epithelial - Ur 0-5 SEEN /hpf (0-5); White Blood Cells 0-5 SEEN /hpf (0-5)
[2019-12-12 06:18] LABS: Absolute Lymphocyte Count 0.26 X10^3/uL (0.83-4.51); Absolute Neutrophil Count 15.2 X10^3/uL (2.0-7.7); Basophil# 0.05 X10^3/uL; Basophil% 0.3 % (0-1); Hemoglobin 8.2 g/dL (12.0-15.0); Lymphocyte # 0.26 X10^3/ul (4.0); Lymphocyte % 1.6 % (19-41); Mean Corp Hgb Conc 32.8 g/dL (32-36); Mean Corpuscular Hgb 30.3 pg (27.0-32.0); Mean Corpuscular Volume 92.3 fL (81-99); Monocyte# 0.42 X10^3/uL; Monocyte% 2.6 % (0-10); NRBC Flagged by Analyzer 0 % (0-5); Neutrophil # 15.15 X10^3/uL (2.7-7.7); Neutrophil % 94.7 % (47-70); POSITIVE DIFFERENTIAL YES; POSITIVE MORPHOLOGY YES; Platelet Count 183 K/mm3 (150-450); RBC Distribution Width CV 14.6 % (11.6-14.6); RBC Distribution Width SD 48.3 fl (35.1-43.9); Red Blood Count 2.71 M/mm3 (4.2-5.4)
[2019-12-12 06:31] LABS: Differential Indicated SCAN CRITERIA MET
[2019-12-12 06:51] LABS: ALB/GLOB Ratio 0.9 RATIO (0.9-2.4); AST(SGOT) 10 U/L (15-37); Alanine Aminotransfer ALT/SGPT 31 U/L (13-56); Albumin, Serum 2.2 g/dL (3.2-5.0); Alkaline Phosphatase 171 U/L (45-117); Anion Gap 8 (5-15); BUN 18 mg/dL (7-18); BUN/Creat Ratio 27.1 RATIO (10-20); Calcium,Total 7.4 mg/dL (8.5-10.1); Chloride 106 mmol/L (98-107); Creatinine, Serum 0.66 mg/dL (0.55-1.02); EST Glomerular Filtration Rate 91 mL/min (>60); Est Glom Filt Rate - Afr Amer 110 mL/min (>60); Estimated Creatinine Clearance 38.35 ml/min; Globulin 2.5 g/dL (2.2-4.2); Glucose 98 mg/dL (74-106); Potassium 3.9 mmol/L (3.5-5.1); Protein, Total 4.7 g/dL (6.4-8.2); Sodium Level 134 mmol/L (136-145)
[2019-12-12 07:08] LABS: Differential Comment SCANNED
[2019-12-12 08:55] LABS: Probe Check PASS; Specimen Processing Control PASS
[2019-12-12] MEDS: Enoxaparin 40 MG/0.4 ML Syringe SC (09:53)
--- NOTE | 2019-12-12 10:48 | PN_ITS ---
Patient Problems: Active and Suspected Problems (Last Reviewed 11/27/19 @ 10:11 by Maria Esther Hopkins) Acute pancreatitis (Acute) Reason for Visit: pancreatitis Subjective: Feels well. No further abdominal pain. Vitals/I&O's: Vital Signs Temp Pulse Resp BP Pulse Ox 37.0 C 99 20 H 102/63 99 12/12/19 09:46 12/12/19 09:46 12/12/19 09:46 12/12/19 09:46 12/12/19 09:46 Oxygen Flow Rate (L/min) 3 Oxygen Delivery Method Nasal Cannula Weight: 56.5 kg Body Mass Index (BMI) 22.0 Intake and Output for Last 24 Hours 12/10/19 12/11/19 12/12/19 23:59 23:59 23:59 Intake Total 1000 / 1000 Balance 1000 / 1000 General: Alert, No apparent distress HEENT: Atraumatic, Normocephalic Oral: Moist Mucosa, No Gingival or Mucosal Lesions/ Ulcerations Neck: No Nodes, Thyroid Normal Size and Texture Lungs: Clear to auscultation, Normal air movement, No rhonchi, No wheeze Cardiovascular: Regular rate, Regular Rhythm, Normal S1, Normal S2 Abdomen: Bowel Sounds Present, Soft, Non Tender, Non-Distended Extremities: No edema, No Calf Tenderness Psych/Mental Status: Normal Affect, Appropriate Laboratory Results 12/12/19 00:00: WBC 12.1 H, RBC 2.92 L, Hgb 8.8 L, Hct 26.9 L, MCV 92.1, MCH 30.1, MCHC 32.7, RDW Std Deviation 48.6 H, RDW Coeff of Malu 14.6, Plt Count 231, MPV 10.1, Immature Gran % (Auto) 0.800, Neut % (Auto) 87.6 H, Lymph % (Auto) 6.4 L, [place] % (Auto) 4.9, Eos % (Auto) 0.1, Baso % (Auto) 0.2, Absolute Neuts (auto) 10.6 H, Absolute Lymphs (auto) 0.77 L, Nucleated RBC % 0 12/12/19 00:00: Sodium 134 L, Potassium 3.6, Chloride 105, Carbon Dioxide 22.0, Anion Gap 7, BUN 21 H, Creatinine 0.56, Estim Creat Clear Calc 38.35, Est GFR (MDRD) Af Amer 134, Est GFR (MDRD) Non-Af 111, BUN/Creatinine Ratio 37.3 H, Glucose 107 H, Calcium 8.1 L, Total Bilirubin 0.50, AST 10 L, ALT 32, Alkaline Phosphatase 171 H, Troponin I < 0.015, Total Protein 5.3 L, Albumin 2.5 L, Globulin 2.8, Albumin/Globulin Ratio 0.9, Lipase 1435 H 12/12/19 03:30: Urine Color Yellow, Urine Clarity Clear, Urine pH 6.0, Ur Specific [place] 1.020, Urine Protein Negative, Urine Glucose (UA) Normal, Urine Ketones Negative, Urine Occult Blood 10 H, Urine Nitrite Negative, Urine Bilirubin Negative, Urine Urobilinogen Normal, Ur Leukocyte Esterase Negative, Urine RBC 0-5 SEEN, Urine WBC 0-5 SEEN, Ur Squamous Epith Cells 0 SEEN, Ur Transition Epith Cell 0-5 SEEN, Calcium Oxalate Crystal RARE, Amorphous Sediment 1+, Urine Bacteria 0 SEEN, Urine Mucus 0 SEEN 12/12/19 06:06: WBC 16.0 H, RBC 2.71 L, Hgb 8.2 L, Hct 25.0 L, MCV 92.3, MCH 30.3, MCHC 32.8, RDW Std Deviation 48.3 H, RDW Coeff of Malu 14.6, Plt Count 183, MPV 10.0, Immature Gran % (Auto) 0.800, Neut % (Auto) 94.7 H, Lymph % (Auto) 1.6 L, [place] % (Auto) 2.6, Eos % (Auto) 0.0, Baso % (Auto) 0.3, Absolute Neuts (auto) 15.2 H, Absolute Lymphs (auto) 0.26 L, Nucleated RBC % 0, Differential Comment SCANNED 12/12/19 06:06: Sodium 134 L, Potassium 3.9, Chloride 106, Carbon Dioxide 20.0 L , Anion Gap 8, BUN 18, Creatinine 0.66, Estim Creat Clear Calc 38.35, Est GFR (MDRD) Af Amer 110, Est GFR (MDRD) Non-Af 91, BUN/Creatinine Ratio 27.1 H, Glucose 98, Calcium 7.4 L, Total Bilirubin 0.70, AST 10 L, ALT 31, Alkaline Phosphatase 171 H, Total Protein 4.7 L, Albumin 2.2 L, Globulin 2.5, Albumin/Globulin Ratio 0.9 12/12/19 07:40: COVID-19 (MADINA) Negative Current Medications Enoxaparin Sodium (Lovenox) 40 mg SC DAILY [facility] Last Admin: 12/12/19 09:53 Dose: 40 mg Documented by: Sodium Chloride () 1,000 mls @ 125 mls/hr IV .Q8H [place] Last Admin: 12/12/19 03:33 Dose: 125 mls/hr Documented by: Morphine Sulfate () 4 mg IV Q3H PRN PRN PRN Reason: Pain Score 6-10/10 Ondansetron HCl (Zofran) 4 mg IV Q8H PRN PRN PRN Reason: NAUSEA/VOMITING Sodium Chloride () 10 - 40 ml IV UD PRN PRN Reason: SALINE FLUSH Last Admin: 12/12/19 03:33 Dose: 10 ml Documented by: STROKE Vital Signs/Narrative: Vital Signs Temp Pulse Resp BP Pulse Ox 12/12/19 09:46 37.0 C 99 20 H 102/63 99 12/12/19 07:42 103 H 22 H 12/12/19 07:37 36.9 C 103 H 22 H 108/57 L 96 12/12/19 07:16 94 Medical Necessity - Tobacco Use Smoking Status: Never smoker Assessment/Plan All Active Problems (Last Reviewed 11/27/19 @ 10:11 by Maria Esther Hopkins) Encounter for education (Acute) Acute pancreatitis (Acute) 1. Acute pancreatitis * clinically improved * repeat lipase pending * currently NPO, advance diet pending on repeat lipase 2. recent pneumonia * improving * COVID-19 pending. 3. VTE prophylaxis: LMWH. Procedures: Other Procedure - See Report - non-billable rounding.
--- NOTE | 2019-12-12 11:31 | CASEMGMT ---
Addendum entered by Shanell Chowdhury 12/12/19 11:53: SW received call from Saskia at [facility] stating she attempted to call pt but pt didn't answer. Saskia asked to be notified when pt discharges from [facility] and they will follow up with pt at home. Original Note: Social Work Note SW reviewed chart. Pt has history of CLL, currently on Chemotherapy, has symptoms including nausea, vomiting, constipation, abdominal pain. SW completed Palliative Care screening tool, pt scored 4, consider Palliative Care consult. SW in to speak with pt. SW introduced self and role at [facility]. Pt is alert and orientated x4. Pt states that she was diagnosed with CLL in 2016. Pt states she was told in 2016 that she likely had CLL for four previous years as well. Pt states that she was doing well until she had pneumonia. Pt states that she is currently getting chemotherapy and oncologist is Dr. Khan. SW explained Palliative Care to pt and provided pt with brochure. Pt agreeable to Palliative Care referral. Pt states that she feels good support from family and friends, denied additional needs or concerns. JEMMA placed a call to [facility] and provided Palliative Care referral to [facility]. SW faxed referral. Shanell Chowdhury GEOPHYSICAL PROSPECTING SURVEYOR, DYNAMO TENDER
[2019-12-12 11:46] LABS: Lipase 1073 U/L (73-393)
--- NOTE | 2019-12-12 13:45 | CASEMGMT ---
Addendum entered by Rain Cespedes 12/12/19 15:33: Pt states she lives in a 2-story home. Her bedroom is on the 2nd floor and bathroom is on the main floor. She states she is able to navigate the stairs by going slowly and using siderails. Original Note: RN CM FISHING VESSEL OPERATOR CM to room to meet with patient for initial transition planning/care coordination assessment. RN CM introduced self and role at [facility]. Pt voices understanding and consents to assessment at this time. Pt resting in bed in no distress at this time. Pt is A/O at this time and answers all questions appropriately. Care providers, pharmacy, and demographics verified/updated at this time. PCP: Taylor Gross NP Specialists: Dr Lou--podiatry. Dr Yates--oncology. Pt requests that Dr Yates be notified of her admission to [facility]. manager market researchGallo, made aware. Preferred Pharmacy: [facility] Insurance: [facility], [facility] Prescription Benefit: Yes Living Will/HPOA: [facility] does not have LW or HCPOA . Interested in more information but states does not want to talk with SW at this time to complete paperwork. Provided information on advanced directives and given Social Service rac card with number to call if chooses in the future to utilize [facility] social work for advanced directive completion. LNOK: SonEd. Daughter, Tran Living Arrangements: Lives w/her son Ed. One of Ed friends lives there also. Pt states she is independent w/ADL's and manages her medications/appts. Son manages home mgmt tasks and groceries. Transportation: Pt, son. Denies transportation concerns. DME: States has the following DME: shower chair, rails/grab bars, hand-held shower. No home O2. Ambulates independently w/no DME. Pt states no need for further DME at this time. HHC/SNF: No history of either. Denies needs for HHC or OP therapy. Pt wishes to return home and states has no concerns with going home at time of discharge. CM to follow for any discharge planning/needs. Pt voices no further concerns/needs at this time. Advised pt to ask for CM if any further questions/concerns/needs arise. Voices understanding. PLAN: Home w/support of son. SW has been in to talk with pt and Palliative referral made. Alondra BSN RN CM
[2019-12-13] VITALS (10 sets, daily range): BP systolic 114–121; BP diastolic 64–77; PULSE 93–98; RESP 18–28; TEMP 36.7–37.3; O2SAT 2–99
[2019-12-13] MEDS: 0.9% Normal Saline 1,000 ML 125 ML IV ×3 (03:05→20:29)
[2019-12-13 06:26] LABS: Absolute Lymphocyte Count 0.26 X10^3/uL (0.83-4.51); Absolute Neutrophil Count 3.6 X10^3/uL (2.0-7.7); Basophil# 0.02 X10^3/uL; Basophil% 0.5 % (0-1); Eosinophil# 0.02 X10^3/uL; Eosinophils% 0.5 % (0-5); Hematocrit 23.2 % (37-47); Hemoglobin 7.2 g/dL (12.0-15.0); Lymphocyte # 0.26 X10^3/ul (4.0); Mean Corpuscular Hgb 29.3 pg (27.0-32.0); Mean Corpuscular Volume 94.3 fL (81-99); Mean Platelet Vol. 10.8 fl (6.2-12.0); Monocyte# 0.32 X10^3/uL; Monocyte% 7.4 % (0-10); NRBC Flagged by Analyzer 0 % (0-5); Neutrophil # 3.64 X10^3/uL (2.7-7.7); Neutrophil % 84.7 % (47-70); POSITIVE DIFFERENTIAL YES; Platelet Count 139 K/mm3 (150-450); RBC Distribution Width CV 14.5 % (11.6-14.6); RBC Distribution Width SD 49.9 fl (35.1-43.9); Red Blood Count 2.46 M/mm3 (4.2-5.4); White Blood Count 4.3 K/mm3 (4.4-11.0)
[2019-12-13 06:43] LABS: Differential Indicated SCAN CRITERIA MET
[2019-12-13 07:01] LABS: ALB/GLOB Ratio 0.8 RATIO (0.9-2.4); AST(SGOT) 10 U/L (15-37); Alanine Aminotransfer ALT/SGPT 25 U/L (13-56); Alkaline Phosphatase 130 U/L (45-117); Anion Gap 6 (5-15); BUN 19 mg/dL (7-18); BUN/Creat Ratio 30.1 RATIO (10-20); Calcium,Total 6.7 mg/dL (8.5-10.1); Chloride 108 mmol/L (98-107); Creatinine, Serum 0.63 mg/dL (0.55-1.02); EST Glomerular Filtration Rate 97 mL/min (>60); Est Glom Filt Rate - Afr Amer 117 mL/min (>60); Estimated Creatinine Clearance 38.35 ml/min; Globulin 2.4 g/dL (2.2-4.2); Glucose 93 mg/dL (74-106); Lipase 2054 U/L (73-393); Potassium 3.9 mmol/L (3.5-5.1); Protein, Total 4.4 g/dL (6.4-8.2); Sodium Level 135 mmol/L (136-145)
--- NOTE | 2019-12-13 07:36 | US_ITS ---
STUDY: ABDOMINAL ULTRASOUND - RIGHT UPPER QUADRANT REASON FOR VISIT: Female, 79 years old PANCREATITIS TECHNIQUE: Ultrasound evaluation of the right upper quadrant was performed with real-time and static hopper-scale imaging. TECHNICAL QUALITY: Adequate. COMPARISON: None. FINDINGS: Small right pleural effusion is noted Liver: The liver measures 16.2 cm. There is diffusely increased echogenicity of the liver. The bile ducts are within normal limits. There is hepatic color flow. The direction of portal flow is hepatopetal. There is no demonstrated mass lesion. Gallbladder: Normal distended gallbladder. The gallbladder wall measures 3.5 mm. There is a positive sonographic Holland''s sign. There is pericholecystic fluid. There are multiple gallstones. Common Bile Duct (C.B.D.): The common bile duct measures 3 mm. Pancreas: Normal size of the head, body and tail of the pancreas. There is normal echogenicity of the pancreas. There is no demonstrated pancreatic mass or cyst. Right Kidney: Normal size of the right kidney. The right kidney measures 11.9 x 4.7 x 4.7 cm. Normal renal cortex. The right cortex measures 1.3 cm. There is no demonstrated renal mass or cyst. There is no right hydronephrosis. US/Abdomen Limited IMPRESSION: Large fatty infiltrated liver.. Findings consistent with cholecystitis and acute cholecystitis. Electronically Signed: Solis Huang MD at 18:26 EDT , Service support ,
[2019-12-13 07:38] LABS: Red Cell Morphology NORM C+C NORMAL (NORM C&C)
[2019-12-13] MEDS: Enoxaparin 40 MG/0.4 ML Syringe SC (10:30)
--- NOTE | 2019-12-13 12:06 | PCM.PN.HOSP ---
Patient Problems: Active and Suspected Problems (Last Reviewed 11/27/19 @ 10:11 by Maria Esther Hopkins) Acute pancreatitis (Acute) Reason for Visit: pancreatitis Subjective: No abdominal pain. Feels well. Vitals/I&O's: Vital Signs Temp Pulse Resp BP Pulse Ox 37.1 C 96 28 H 121/71 H 98 12/13/19 07:50 12/13/19 07:50 12/13/19 07:50 12/13/19 07:50 12/13/19 07:50 Oxygen Flow Rate (L/min) 2 Oxygen Delivery Method Nasal Cannula Weight: 56.5 kg Body Mass Index (BMI) 22.0 Intake and Output for Last 24 Hours 12/11/19 12/12/19 12/13/19 23:59 23:59 23:59 Intake Total 3297.92 / 3297.92 2600 / 2600 Output Total 150 / 150 200 / 200 Balance 3147.92 / 3147.92 2400 / 2400 General: Alert, No apparent distress HEENT: Atraumatic, Normocephalic Oral: Moist Mucosa, No Gingival or Mucosal Lesions/ Ulcerations Neck: No Nodes, Thyroid Normal Size and Texture Lungs: Clear to auscultation, Normal air movement, No rhonchi, No wheeze, No rales Cardiovascular: Regular rate, Regular Rhythm, Normal S1, Normal S2, No murmurs Abdomen: Bowel Sounds Present, Soft, Non-Distended, No Hepato-splenomegaly, Tender - slight generalized abdominal pain. Extremities: No edema, No Calf Tenderness Skin: No rashes, No breakdown Musculoskeletal: No Tenderness to Palpation of Joints or Extremities, No Muscle Wasting Psych/Mental Status: Normal Affect, Appropriate Laboratory Results 12/13/19 05:38: WBC 4.3 L, RBC 2.46 L, Hgb 7.2 L, Hct 23.2 L, MCV 94.3, MCH 29.3, MCHC 31.0 L D, RDW Std Deviation 49.9 H, RDW Coeff of Malu 14.5, Plt Count 139 L, MPV 10.8, Immature Gran % (Auto) 0.900, Neut % (Auto) 84.7 H, Lymph % (Auto) 6.0 L, [place] % (Auto) 7.4, Eos % (Auto) 0.5, Baso % (Auto) 0.5, Absolute Neuts (auto) 3.6, Absolute Lymphs (auto) 0.26 L, Nucleated RBC % 0, Differential Comment , RBC Morphology NORM C+C 12/13/19 05:38: Sodium 135 L, Potassium 3.9, Chloride 108 H, Carbon Dioxide 21.0, Anion Gap 6, BUN 19 H, Creatinine 0.63, Estim Creat Clear Calc 38.35, Est GFR (MDRD) Af Amer 117, Est GFR (MDRD) Non-Af 97, BUN/Creatinine Ratio 30.1 H, Glucose 93, Calcium 6.7 L, Total Bilirubin 0.60, AST 10 L, ALT 25, Alkaline Phosphatase 130 H, Total Protein 4.4 L, Albumin 2.0 L, Globulin 2.4, Albumin/Globulin Ratio 0.8 L, Lipase 2054 H Current Medications Enoxaparin Sodium (Lovenox) 40 mg SC DAILY [facility] Last Admin: 12/13/19 10:30 Dose: 40 mg Documented by: Sodium Chloride () 1,000 mls @ 125 mls/hr IV .Q8H [facility] Last Admin: 12/13/19 11:18 Dose: 125 mls/hr Documented by: Morphine Sulfate () 4 mg IV Q3H PRN PRN PRN Reason: Pain Score 6-10/10 Ondansetron HCl (Zofran) 4 mg IV Q8H PRN PRN PRN Reason: NAUSEA/VOMITING Sodium Chloride () 10 - 40 ml IV UD PRN PRN Reason: SALINE FLUSH Last Admin: 12/12/19 03:33 Dose: 10 ml Documented by: Medical Necessity - Tobacco Use Smoking Status: Never smoker Assessment/Plan All Active Problems (Last Reviewed 11/27/19 @ 10:11 by Maria Esther Hopkins) Encounter for education (Acute) Acute pancreatitis (Acute) 1. Acute pancreatitis clinically improved lipase trending up check US 2. recent pneumonia improving COVID-19 negative 3. VTE prophylaxis: LMWH. Inpatient E&M: 90071 Subs Hosp L2
[2019-12-14] VITALS (15 sets, daily range): BP systolic 105–126; BP diastolic 62–86; PULSE 77–98; RESP 16–22; TEMP 36.1–36.8; O2SAT 94–100; BMI 22.0; BMI 22.1
--- NOTE | 2019-12-14 | GALL_PTH ---
PATIENT: OJO BROOKS LOC: MS3 U#:[id number] AGE/SX: 79/F ROOM: MS321 RE12/12/[address]: Dr. Mike Jackson DO : 1940 BED: 1 DIS: 12/15/2019 SPEC #: [id number] RECD: 12/14/19 12:30 STATUS: ESTRELLA REQ #: [id number] ANDRÉS: 12/14/19 00:[address]: Liliam Zelaya DEPT: SURGICAL PATHOLOGY RECD BY: Evan Bwoen ENTERED: 12/14/19 12:30 SP TYPE: GALLBLADDE OTHR DR: DO Dr. Gus Crooks MD Dr. Tamera Robotham, MD Mary Ciesa, DATA CONTROL ASSISTANT-C Tissues: Gallbladder, NOS Procedures: Surgery Specimen Level III Comments: @ Ordering doctor for SUIII edited from to @ by KATY at 12/14/19 1433 @ Submitting doctor edited from to @ by RGOOD at 12/14/19 1433 HEADER OPERATION: Laparoscopic cholecystectomy with IOC PRE-OP DIAGNOSIS: Acute pancreatitis TISSUE SUBMITTED: Gallbladder MICROSCOPIC DIAGNOSIS Gallbladder, cholecystectomy: Chronic cholecystitis and cholelithiasis. A benign pericystic lymph node with reactive changes. SANJAY:binh 12/15/19 MICROSCOPIC DESCRIPTION Slides are reviewed. GROSS DESCRIPTION Received is one container labeled with the patient's name and designated gallbladder. The specimen consists of a previously opened gallbladder measuring 8 cm in length and 3.5 cm in diameter. The external surface is pink-henson, smooth and glistening for the most part. Focally it is granular, hemorrhagic and contains cautery artifact. The gallbladder contains green-yellow mucoid bile. Present in the container are seven zcz-drfhd-highyrks, multifaceted stones measuring in aggregate 4 x 3 x 1.5 cm and 1 cm in average diameter. The mucosa is bile-stained and without any mass lesions. The gallbladder wall measures up to 0.3 cm in thickness. Also present close to the cystic duct is an ovoid piece of henson-pink soft tissue, a possible lymph node, measuring 0.5 cm in greatest dimension. Microbiology Supervisor sections from the gallbladder and the cystic duct including possible lymph node are submitted in one cassette. / SANJAY:binh 12/14/19 TC:3 [facility]: [id number]
[2019-12-14] MEDS: 0.9% Normal Saline 1,000 ML 125 ML IV ×3 (04:27→21:11)
[2019-12-14 05:51] LABS: Absolute Lymphocyte Count 0.36 X10^3/uL (0.83-4.51); Absolute Neutrophil Count 2.8 X10^3/uL (2.0-7.7); Basophil# 0.01 X10^3/uL; Basophil% 0.3 % (0-1); Eosinophil# 0.02 X10^3/uL; Eosinophils% 0.6 % (0-5); Hemoglobin 7.6 g/dL (12.0-15.0); Lymphocyte # 0.36 X10^3/ul (4.0); Lymphocyte % 10.3 % (19-41); Mean Corp Hgb Conc 31.7 g/dL (32-36); Mean Corpuscular Hgb 29.9 pg (27.0-32.0); Mean Corpuscular Volume 94.5 fL (81-99); Mean Platelet Vol. 10.3 fl (6.2-12.0); Monocyte# 0.33 X10^3/uL; Monocyte% 9.4 % (0-10); NRBC Flagged by Analyzer 0 % (0-5); Neutrophil # 2.76 X10^3/uL (2.7-7.7); Neutrophil % 78.8 % (47-70); POSITIVE DIFFERENTIAL YES; Platelet Count 152 K/mm3 (150-450); RBC Distribution Width CV 14.5 % (11.6-14.6); RBC Distribution Width SD 49.9 fl (35.1-43.9); Red Blood Count 2.54 M/mm3 (4.2-5.4); White Blood Count 3.5 K/mm3 (4.4-11.0)
[2019-12-14 06:01] LABS: International Normalized Ratio 1.3; Prothrombin Time (Protime)PT. 15.8 SECONDS (11.7-14.9)
[2019-12-14 06:09] LABS: Differential Indicated SCAN CRITERIA MET
[2019-12-14 06:16] LABS: Differential Comment SCANNED
[2019-12-14 06:57] LABS: ALB/GLOB Ratio 0.8 RATIO (0.9-2.4); AST(SGOT) 8 U/L (15-37); Alanine Aminotransfer ALT/SGPT 21 U/L (13-56); Albumin, Serum 1.9 g/dL (3.2-5.0); Alkaline Phosphatase 115 U/L (45-117); Anion Gap 5 (5-15); BUN 14 mg/dL (7-18); BUN/Creat Ratio 33.3 RATIO (10-20); Calcium,Total 6.6 mg/dL (8.5-10.1); Chloride 110 mmol/L (98-107); Creatinine, Serum 0.42 mg/dL (0.55-1.02); EST Glomerular Filtration Rate 155 mL/min (>60); Est Glom Filt Rate - Afr Amer 187 mL/min (>60); Estimated Creatinine Clearance 38.35 ml/min; Ferritin 130 ng/mL (8-252); Globulin 2.4 g/dL (2.2-4.2); Glucose 102 mg/dL (74-106); Iron 21 ug/dL (50-170); Iron Binding Capacity,Total 176 ug/dL (250-450); Lipase 928 U/L (73-393); PERCENT IRON SATURATION 11.9 % (15.0-55.0); Potassium 3.6 mmol/L (3.5-5.1); Protein, Total 4.3 g/dL (6.4-8.2); Sodium Level 135 mmol/L (136-145); Thyroid Stim Hormone (TSH) 0.81 uIU/mL (0.358-3.74)
--- NOTE | 2019-12-14 08:23 | EKG12_ITS ---
Test Reason : PRE OP Blood Pressure : / mmHG Vent. Rate : 079 BPM Atrial Rate : 079 BPM P-R Int : 166 ms QRS Dur : 078 ms QT Int : 386 ms P-R-T Axes : 058 -22 024 degrees QTc Int : 442 ms Normal sinus rhythm Nonspecific T wave abnormality Abnormal ECG No previous ECGs available Confirmed by SUDHA ROSSI ([id number]), editorial specialist MONIQUE IQBAL ([id number]) on 12/18/2019 12:43:48 PM Referred By: Gus Santamaria Confirmed By:SUDHA ROSSI
--- NOTE | 2019-12-14 08:32 | NURSING ---
PT TO OR VIA BED
--- NOTE | 2019-12-14 08:36 | NURSING ---
ATTEMPTED TO CALL PT'S SON, IVIS. NO ANSWER. MESSAGE LEFT.
[2019-12-14 08:52] LABS: Ferritin 135 ng/mL (8-252); Iron 23 ug/dL (50-170); Iron Binding Capacity,Total 166 ug/dL (250-450); PERCENT IRON SATURATION 13.9 % (15.0-55.0)
--- NOTE | 2019-12-14 09:06 | PCM.CONS.GEN ---
Reason for Consult Date of Consultation: 12/14/19 History of Present Illness: The patient is a 79 year old F initially admitted due to nausea and vomiting for about a week and a half and time diffuse abdominal pain. Patient has past medical history for CLL and did get chemotherapy on the November 19 and and plan to get an additional round next week. On initial labs patient did have leukocytosis, pancreatitis. Patient was doing better until yesterday and then ultrasound done of the gallbladder which showed wall of 3.5 cm positive Holland sign, pericholecystic fluid, common bile duct 3 mm, LFTs have remained fairly normal and lipase has improved. Patient is never had any abdominal surgeries. Just started patient on Zosyn 3.375 g IV every 8 due to acute cholecystitis Past Medical History Past Medical History (Chronic Problems): Chronic Problems (Last Reviewed 11/27/19 @ 10:11 by Maria Esther Hopkins) CLL (chronic lymphocytic leukemia) (Chronic) Thrombocytopenia (Chronic) Anemia (Chronic) Medical History: Medical History (Last Reviewed 11/27/19 @ 10:11 by Maria Esther Hopkins) CLL (chronic lymphocytic leukemia) (Chronic) C91.10 Thrombocytopenia (Chronic) D69.6 Anemia (Chronic) D64.9 Compression fracture OCTOBER 06, 2018 History of pneumonia Z87.01 History of urinary tract infection Z87.440 Measles B05.9 Mumps B26.9 PORT PLACEMENT NOVEMBER 15 2019 bilateral ankle surgery 1954 varicose veins Hypertension I10 Allergies POLLEN Adverse Reaction (Mild, Uncoded 12/11/19 23:22) Other WATERY EYES, SNEEZING Home Medications: Ambulatory Orders Medication Instructions Recorded Multivitamin [Multiple Vitamins] 1 ea PO DAILY 01/06/17 Ibandronate Sodium [Boniva] 150 mg PO Q30D 06/23/17 Calcium Carbonate [Calcium] 1 tab PO DAILY 12/01/17 Lorazepam [Ativan] 0.5 mg PO DAILY PRN PRN 12/01/17 Hydrochlorothiazide 6.25 mg PO DAILY 10/06/18 Naproxen Sodium [Aleve] 220 mg PO DAILY PRN 03/28/19 Guaifenesin [Mucinex] 600 mg PO BID PRN 06/19/19 Acyclovir 400 mg PO BID 30 Days #60 tab 11/09/19 Allopurinol 300 mg PO DAILY 7 Days #7 tab 11/09/19 Lidocaine/Prilocaine 1 applicatio TP DAILY PRN PRN 30 11/09/19 [Lidocaine-Prilocaine Cream] Days #1 tube Ondansetron [Zofran] 8 mg PO Q8H PRN PRN 10 Days #30 tab 11/09/19 Smz/Tmp Ds [Bactrim Ds] 1 tab PO MOWEFR 12/12/19 Surgical History: Surgical History (Last Reviewed 11/27/19 @ 10:11 by Maria Esther Hopkins) History of foot surgery Z98.890 Surgical History: - - Reviewed Lives: With Family Smoking Status: Never smoker Alcohol: None Drugs: None - *Family History Maternal Family History: Family History (Last Reviewed 11/27/19 @ 10:11 by Maria Esther Hopkins) Father Lung cancer Mother CVA (cerebral vascular accident) Son Waldenstrom's disease History Items: No pertinent history Review of Systems Constitutional: Reports: Anorexia Eyes: Denies: Blurred vision HEENT: Denies: Difficulty Swallowing Cardiovascular: Denies: Chest Pain Respiratory: Denies: Shortness of breath at rest Gastrointestinal: Reports: Abdominal Pain, Nausea, Vomiting Genitourinary: Denies: Dysuria Psychiatric: Denies: Depression Hematologic/ Lymphatic: Denies: Easy Bleeding Patient Problems: Active and Suspected Problems (Last Reviewed 11/27/19 @ 10:11 by Maria Esther Hopkins) Acute pancreatitis (Acute) - Physical Exam Vitals/I&O's: Vital Signs Temp Pulse Resp BP Pulse Ox 97.8 F 92 22 H 121/71 H 98 12/14/19 08:24 12/14/19 08:24 12/14/19 08:24 12/14/19 08:24 12/14/19 08:24 Oxygen Flow Rate (L/min) 2 Oxygen Delivery Method Nasal Cannula Weight: 124 lb 8.979 oz Body Mass Index (BMI) 22.0 Intake and Output for Last 24 Hours 12/12/19 12/13/19 12/14/19 23:59 23:59 23:59 Intake Total 3297.92 / 3297.92 4320 / 4520 1315.83 / 1315.83 Output Total 150 / 150 300 / 750 650 / 650 Balance 3147.92 / 3147.92 4020 / 3770 665.83 / 665.83 General: Alert, Oriented x3, Cooperative, - - Patient does appear ill. Lungs: Normal air movement Cardiovascular: Regular rate Abdomen: Soft, Non Tender, Non-Distended Extremities: No clubbing, No cyanosis, No edema Neurological: Cranial nerves II-XII grossly intact Psych/Mental Status: Normal Affect Laboratory Results 12/13/19 05:38: Diff Path Review September [facility] 12/14/19 05:31: WBC 3.5 L, RBC 2.54 L, Hgb 7.6 L, Hct 24.0 L, MCV 94.5, MCH 29.9, MCHC 31.7 L, RDW Std Deviation 49.9 H, RDW Coeff of Malu 14.5, Plt Count 152, MPV 10.3, Immature Gran % (Auto) 0.600, Neut % (Auto) 78.8 H, Lymph % (Auto) 10.3 L, [place] % (Auto) 9.4, Eos % (Auto) 0.6, Baso % (Auto) 0.3, Absolute Neuts (auto) 2.8, Absolute Lymphs (auto) 0.36 L, Nucleated RBC % 0, Differential Comment SCANNED, Diff Path Review September [facility] 12/14/19 05:31: PT 15.8 H, INR 1.3 12/14/19 05:31: Sodium 135 L, Potassium 3.6, Chloride 110 H, Carbon Dioxide 20.0 L, Anion Gap 5, BUN 14, Creatinine 0.42 L, Estim Creat Clear Calc 38.35, Est GFR (MDRD) Af Amer 187, Est GFR (MDRD) Non-Af 155, BUN/Creatinine Ratio 33.3 H, Glucose 102, Calcium 6.6 L, Iron 21 L, TIBC 176 L, Iron Saturation 11.9 L, Ferritin 130, Total Bilirubin 0.40, AST 8 L, ALT 21, Alkaline Phosphatase 115, Total Protein 4.3 L, Albumin 1.9 L, Globulin 2.4, Albumin/Globulin Ratio 0.8 L, Lipase 928 H, Folate 40.70, TSH 0.81 12/14/19 05:31: Vitamin B12 Pending 12/14/19 05:53: Iron 23 L, TIBC 166 L, Iron Saturation 13.9 L, Ferritin 135 Current Medications Enoxaparin Sodium (Lovenox) 40 mg SC DAILY [facility] Last Admin: 12/13/19 10:30 Dose: 40 mg Documented by: Sodium Chloride () 1,000 mls @ 125 mls/hr IV .Q8H [facility] Last Admin: 12/14/19 04:27 Dose: 125 mls/hr Documented by: Piperacillin Sod/Tazobactam (Sod 3.375 gm/ Sodium Chloride) 50 mls @ 12.5 mls/hr IV Q8 [place] Morphine Sulfate () 4 mg IV Q3H PRN PRN PRN Reason: Pain Score 6-10/10 Ondansetron HCl (Zofran) 4 mg IV Q8H PRN PRN PRN Reason: NAUSEA/VOMITING Sodium Chloride () 10 - 40 ml IV UD PRN PRN Reason: SALINE FLUSH Last Admin: 12/12/19 03:33 Dose: 10 ml Documented by: Assessment/Plan All Active Problems (Last Reviewed 11/27/19 @ 10:11 by Maria Esther Hopkins) Encounter for education (Acute) Acute pancreatitis (Acute) 79-year-old female with acute cholecystitis, pancreatitis, past medical history for CLL recent chemo end of last month, anemia Reviewed the anatomy with the patient and discussed the procedure: laparoscopic cholecystectomy with possible cholangiograms, possible open. Review risks including but not limited to bleeding, infection, hernia, bile leak, retained gallstones requiring another procedure ERCP- Endoscopic Retrograde Cholangiopancreatography, injury to another organ (bile ducts, common bile duct, small bowel, etc.) require transfer to tertiary care facility And conversion to an open procedure. All questions were answered. No further questions this time. Her hemoglobin currently at 7.6 yesterday was 7.2 prior to that it was mid eights we will plan to give patient 1 unit packed red blood cells. Liliam Zelaya M.D. Pager: [phone] [facility] [address] [place] [address], [address] [place] [address] Office: [phone]
[2019-12-14 09:39] LABS: Vitamin B12 1340 pg/mL (211-911)
[2019-12-14] MEDS: Bupivacaine Mpf 0.5% 30 ML VIAL (10:19)
--- NOTE | 2019-12-14 10:20 | RAD_ITS ---
CLINICAL HISTORY: Female, 79 years old. Cholecystectomy, pancreatitis PROCEDURE: CHOLANGIOGRAM - intraoperative CONSENT: Informed consent obtained SEDATION: General FLUOROSCOPY TIME (if supplied): (0:04) seconds Placement of the catheter and the procedure were performed by: Dr. Zelaya Fluoroscopy was provided by Leatha Beltran, who was present in the room time of the procedure. TECHNIQUE: (All elements of maximal sterile barrier technique followed, including US elements as applicable) After removal of the gallbladder, the cystic duct remnant was cannulized, and contrast injected in a retrograde manner. There is normal filling of the intra and extrahepatic biliary tree. No abnormal dilatation of the biliary tree is noted. There is no filling defect or stricture. No extravasation of contrast outside the lumen of the biliary tree is noted. Free flow of contrast into the duodenum is noted. RAD/Cholangiogram/ O R,Initial IMPRESSION: Normal intraoperative cholangiogram Electronically Signed: Michael Chang MD at 11:15 EDT , Service support ,
--- NOTE | 2019-12-14 11:07 | PCM.OPRPT ---
Report of Operation Date of Procedure: 12/14/19 Pre-Operative Diagnosis: Acute cholecystitis, cholelithiasis, pancreatitis Post-Operative Diagnosis: Same Surgery/Procedure Performed:: Laparoscopic cholecystectomy with cholangiograms Type of Anesthesia:: General/Supplemental Anesthesiologist: Augusto Veliz Special Medications: Zosyn 3.375 g IV 8 hours for acute cholecystitis Specimen's removed: Gallbladder Estimated Blood Loss (mL): < 10 cc Fluids Replaced: 1100 cc Description of Procedure: Indications this is a 79 year-old male who developed abdominal pain/nausea/vomiting and on workup was found to have acute cholecystitis, cholelithiasis, with a normal common bile duct. Laparoscopic cholecystectomy was elected. Description procedure: The patient was placed on operating table in supine position. General Anesthesia was induced. A timeout was completed verifying correct patient, procedure, site, position and special equipment prior to beginning procedure. The abdomen was prepped and draped in usual sterile fashion. An incision was made in the natural skin line below the umbilicus. The fascia was elevated and incised. The peritoneum was elevated and incised. Entry into the peritoneum was confirmed visually and no bowel was noted in the vicinity of the incision. Laughlin trocar was placed. The abdomen was insufflated with carbon dioxide to a pressure of 12-15 mmHg. Patient tolerated insufflation well. The laparoscope was then inserted and abdomen inspected. No injuries from initial trocar placement were noted. Additional trochars were then inserted in the following locations 5 mm trocar in the epigastrium and 2 more 5 mm trochars along the right costal margin. The abdomen was inspected patient did have free serous fluid in the abdomen which was suctioned. The table is placed in reverse Trendelenburg position with the right side up. The adhesions between the gallbladder and omentum were lysed sharply. The dome of the gallbladder was grasped with atraumatic grasper passed through the lateral port and retracted over the dome of the liver. Infundibulum was then grasped with atraumatic grasper through the midclavicular port and retracted to the right lower quadrant. This maneuver exposed Calot's triangle. The peritoneum overlying the gallbladder infundibulum was then incised and cystic duct and artery identified and circumferentially dissected. Wilkins catheter was used for cholangiograms. The cholangiogram showed good filling of the common bile duct into the duodenum with no filling defects, good filling of the right and left bile ducts as well. The cystic duct and artery were then doubly clipped and divided close to the gallbladder. The gallbladder then dissected from its peritoneal attachments by electrocautery, there is noted to be edema between the gallbladder and liver. Hemostasis was checked and the gallbladder and contained stones were removed using the endoscopic retrieval bag through the umbilical port. The gallbladder is passed off table as specimen. The gallbladder fossa was copiously irrigated with saline and hemostasis obtained. There is no evidence of bleeding from the gallbladder fossa or cystic artery leakage of bile from the cystic duct stump. Secondary trochars removed under direct vision. No bleeding was noted the trocar sites. The laparoscope was withdrawn and umbilical trocar removed. The abdomen was allowed to collapse. The fascia of the 12 mm trocar was closed with a [id number] 0 Vicryl suture. The skin was closed with sutures of 4-0 Monocryl and Steri-Strips. The orogastric tube was removed and the patient was extubated. The patient tolerated procedure well and was taken to the postanesthesia care unit in stable condition. - Complications none
[2019-12-14 12:07] LABS: Pathologist Review Reviewed
[2019-12-14 12:11] LABS: Pathologist Review Reviewed
[2019-12-14] MEDS: Ensure Clear 120 ML Liquid PO ×2 (13:24→21:11)
--- NOTE | 2019-12-14 14:25 | PN_ITS ---
Patient Problems: Active and Suspected Problems (Last Reviewed 11/27/19 @ 10:11 by Maria Esther Hopkins) Acute pancreatitis (Acute) Reason for Visit: pancreatitis Subjective: Sent to OR for acute cholecystitis. Vitals/I&O's: Vital Signs Temp Pulse Resp BP Pulse Ox 36.1 C L 80 16 122/80 H 98 12/14/19 13:10 12/14/19 13:10 12/14/19 13:10 12/14/19 13:10 12/14/19 13:10 Oxygen Flow Rate (L/min) 2 Oxygen Delivery Method Nasal Cannula Weight: 56.5 kg Body Mass Index (BMI) 22.0 Intake and Output for Last 24 Hours 12/12/19 12/13/19 12/14/19 23:59 23:59 23:59 Intake Total 3297.92 / 3297.92 4320 / 4520 2365.83 / 2365.83 Output Total 150 / 150 300 / 750 650 / 650 Balance 3147.92 / 3147.92 4020 / 3770 1715.83 / 1715.83 General: Alert, No apparent distress HEENT: Atraumatic, Normocephalic Oral: Moist Mucosa, No Gingival or Mucosal Lesions/ Ulcerations Neck: No Nodes, Thyroid Normal Size and Texture Lungs: Clear to auscultation, Normal air movement, No rhonchi, No wheeze Cardiovascular: Regular rate, Regular Rhythm, Normal S1, Normal S2, No murmurs Abdomen: Bowel Sounds Present, Soft, Non Tender, Non-Distended, No Hepato- splenomegaly Extremities: No edema, No Calf Tenderness Skin: No rashes, No breakdown Musculoskeletal: No Tenderness to Palpation of Joints or Extremities, No Muscle Wasting Psych/Mental Status: Normal Affect, Appropriate Laboratory Results 12/13/19 05:38: Diff Path Review Reviewed 12/14/19 05:31: WBC 3.5 L, RBC 2.54 L, Hgb 7.6 L, Hct 24.0 L, MCV 94.5, MCH 29.9, MCHC 31.7 L, RDW Std Deviation 49.9 H, RDW Coeff of Malu 14.5, Plt Count 152, MPV 10.3, Immature Gran % (Auto) 0.600, Neut % (Auto) 78.8 H, Lymph % (Auto) 10.3 L, [place] % (Auto) 9.4, Eos % (Auto) 0.6, Baso % (Auto) 0.3, Absolute Neuts (auto) 2.8, Absolute Lymphs (auto) 0.36 L, Nucleated RBC % 0, Differential Comment SCANNED, Diff Path Review Reviewed 12/14/19 05:31: PT 15.8 H, INR 1.3 12/14/19 05:31: Sodium 135 L, Potassium 3.6, Chloride 110 H, Carbon Dioxide 20.0 L, Anion Gap 5, BUN 14, Creatinine 0.42 L, Estim Creat Clear Calc 38.35, Est GFR (MDRD) Af Amer 187, Est GFR (MDRD) Non-Af 155, BUN/Creatinine Ratio 33.3 H, Glucose 102, Calcium 6.6 L, Iron 21 L, TIBC 176 L, Iron Saturation 11.9 L, Ferritin 130, Total Bilirubin 0.40, AST 8 L, ALT 21, Alkaline Phosphatase 115, Total Protein 4.3 L, Albumin 1.9 L, Globulin 2.4, Albumin/Globulin Ratio 0.8 L, Lipase 928 H, Folate 40.70, TSH 0.81 12/14/19 05:31: Vitamin B12 1340 H 12/14/19 05:53: Iron 23 L, TIBC 166 L, Iron Saturation 13.9 L, Ferritin 135 12/14/19 08:55: Blood Type O POSITIVE, Antibody Screen NEGATIVE, Crossmatch See Detail Current Medications Acetaminophen (Tylenol) 650 mg PO Q6H PRN PRN PRN Reason: Pain Score 1-10/10 Enoxaparin Sodium (Lovenox) 40 mg SC DAILY [facility] Last Admin: 12/13/19 10:30 Dose: 40 mg Documented by: Ferrous Sulfate (Ferrous Sulfate) 325 mg PO DAILY@1200 [place] Sodium Chloride () 1,000 mls @ 125 mls/hr IV .Q8H [facility] Last Admin: 12/14/19 13:24 Dose: 125 mls/hr Documented by: Morphine Sulfate () 4 mg IV Q3H PRN PRN PRN Reason: Pain Score 6-10/10 Nutritional Formula (Lactose Free) (Ensure Clear) 120 ml PO 4X/DAY [facility] Last Admin: 12/14/19 13:24 Dose: 120 ml Documented by: Ondansetron HCl (Zofran) 4 mg IV Q8H PRN PRN PRN Reason: NAUSEA/VOMITING Oxycodone HCl (Oxyir) 5 mg PO Q4H PRN PRN PRN Reason: Pain Score 6-10/10 Sodium Chloride () 10 - 40 ml IV UD PRN PRN Reason: SALINE FLUSH Last Admin: 12/12/19 03:33 Dose: 10 ml Documented by: CARMEN Vital Signs/Narrative: Vital Signs Temp Pulse Resp BP Pulse Ox 12/14/19 13:10 36.1 C L 80 16 122/80 H 98 12/14/19 12:43 36.3 C L 77 16 115/72 99 12/14/19 12:30 79 16 121/71 H 100 12/14/19 12:15 80 16 108/82 H 100 12/14/19 12:00 82 16 116/70 97 12/14/19 11:45 82 16 105/86 H 100 12/14/19 11:30 86 16 117/62 100 12/14/19 11:24 36.2 C L 88 16 107/70 98 Medical Necessity - Tobacco Use Smoking Status: Never smoker Assessment/Plan All Active Problems (Last Reviewed 11/27/19 @ 10:11 by Maria Esther Hopkins) Encounter for education (Acute) Acute pancreatitis (Acute) 1. Acute pancreatitis * clinically improved * lipase trending up * US showed acute cholecystitis 2. acute cholecystitis * DW Dr. Zelaya, taken to OR today * s/p lap viktoriya on 12/13 3. recent pneumonia * improving * COVID-19 negative 4. anemia * transfused 1 unit in OR * started on FeSO4 * check Hemoccult 5. VTE prophylaxis: LMWH. Inpatient E&M: 32997 Subs Hosp L2
--- NOTE | 2019-12-14 15:24 | NURSING ---
O2 DECREASED TO 1L NC
[2019-12-14] MEDS: 0.9% Saline Lock 10 ML Syringe IV (16:25)
[2019-12-14] MEDS: Ondansetron 4 MG/2 ML Vial IV (16:25)
[2019-12-15 00:42] VITALS: BMI 22.1
[2019-12-15 03:10] VITALS: BP 124/72; PULSE 83; RESP 16; TEMP 36.8; O2SAT 98
[2019-12-15 04:31] VITALS: BMI 22.1
[2019-12-15] MEDS: 0.9% Normal Saline 1,000 ML 125 ML IV ×2 (04:59→13:24)
[2019-12-15 05:40] LABS: Absolute Lymphocyte Count 0.97 X10^3/uL (0.83-4.51); Absolute Neutrophil Count 4.6 X10^3/uL (2.0-7.7); Basophil# 0.02 X10^3/uL; Basophil% 0.3 % (0-1); Hematocrit 30.6 % (37-47); Hemoglobin 9.7 g/dL (12.0-15.0); Lymphocyte # 0.97 X10^3/ul (4.0); Lymphocyte % 15.9 % (19-41); Mean Corp Hgb Conc 31.7 g/dL (32-36); Mean Corpuscular Hgb 29.9 pg (27.0-32.0); Mean Corpuscular Volume 94.4 fL (81-99); Mean Platelet Vol. 9.8 fl (6.2-12.0); Monocyte# 0.43 X10^3/uL; NRBC Flagged by Analyzer 0 % (0-5); Neutrophil # 4.63 X10^3/uL (2.7-7.7); Neutrophil % 75.8 % (47-70); Platelet Count 205 K/mm3 (150-450); RBC Distribution Width CV 15.1 % (11.6-14.6); RBC Distribution Width SD 52.1 fl (35.1-43.9); Red Blood Count 3.24 M/mm3 (4.2-5.4); White Blood Count 6.1 K/mm3 (4.4-11.0)
[2019-12-15 05:56] LABS: Anion Gap 4 (5-15); BUN 13 mg/dL (7-18); BUN/Creat Ratio 29.9 RATIO (10-20); Calcium,Total 6.8 mg/dL (8.5-10.1); Chloride 111 mmol/L (98-107); Creatinine, Serum 0.44 mg/dL (0.55-1.02); EST Glomerular Filtration Rate 149 mL/min (>60); Est Glom Filt Rate - Afr Amer 180 mL/min (>60); Estimated Creatinine Clearance 38.35 ml/min; Glucose 95 mg/dL (74-106); Potassium 3.9 mmol/L (3.5-5.1); Sodium Level 137 mmol/L (136-145)
[2019-12-15 08:15] VITALS: O2SAT 96
[2019-12-15 09:10] VITALS: BMI 22.1
--- NOTE | 2019-12-15 09:14 | PN.SURG_ITS ---
Patient Problems: Active and Suspected Problems (Last Reviewed 11/27/19 @ 10:11 by Maria Esther Hopkins) Acute pancreatitis (Acute) Subjective: Patient is feeling better abdomen is a little bit sore - Physical Exam Vitals/I&O's: Vital Signs Temp Pulse Resp BP Pulse Ox 98.3 F 83 16 124/72 H 96 12/15/19 03:10 12/15/19 03:10 12/15/19 03:10 12/15/19 03:10 12/15/19 08:15 Oxygen Flow Rate (L/min) 1 Oxygen Delivery Method Nasal Cannula Weight: 124 lb 8.979 oz Body Mass Index (BMI) 22.0 Intake and Output for Last 24 Hours 12/13/19 12/14/19 12/15/19 23:59 23:59 23:59 Intake Total 4320 / 4520 3578.75 / 3698.75 1395 / 1395 Output Total 300 / 750 1200 / 1300 350 / 350 Balance 4020 / 3770 2378.75 / 2398.75 1045 / 1045 General: Alert, Oriented x3, Cooperative, No apparent distress Abdomen: Soft, Distended - Mild, Tender - Tender incisions clean dry and intact with OpSite. Laboratory Results 12/13/19 05:38: Diff Path Review Reviewed 12/14/19 05:31: Diff Path Review Reviewed 12/14/19 05:31: Vitamin B12 1340 H 12/14/19 08:55: Blood Type O POSITIVE, Antibody Screen NEGATIVE, Crossmatch See Detail 12/15/19 05:15: WBC 6.1, RBC 3.24 L, Hgb 9.7 L, Hct 30.6 L, MCV 94.4, MCH 29.9, MCHC 31.7 L, RDW Std Deviation 52.1 H, RDW Coeff of Malu 15.1 H, Plt Count 205, MPV 9.8, Immature Gran % (Auto) 1.000 H, Neut % (Auto) 75.8 H, Lymph % (Auto) 15.9 L, [place] % (Auto) 7.0, Eos % (Auto) 0.0, Baso % (Auto) 0.3, Absolute Neuts (auto) 4.6, Absolute Lymphs (auto) 0.97, Nucleated RBC % 0 12/15/19 05:15: Sodium 137, Potassium 3.9, Chloride 111 H, Carbon Dioxide 22.0, Anion Gap 4 L, BUN 13, Creatinine 0.44 L, Estim Creat Clear Calc 38.35, Est GFR (MDRD) Af Amer 180, Est GFR (MDRD) Non-Af 149, BUN/Creatinine Ratio 29.9 H, Glucose 95, Calcium 6.8 L Current Medications Acetaminophen (Tylenol) 650 mg PO Q6H PRN PRN PRN Reason: Pain Score 1-10/10 Docusate Sodium (Colace) 100 mg PO DAILY [facility] Enoxaparin Sodium (Lovenox) 40 mg SC DAILY [facility] Last Admin: 12/13/19 10:30 Dose: 40 mg Documented by: Ferrous Sulfate (Ferrous Sulfate) 325 mg PO DAILY@1200 [place] Sodium Chloride () 1,000 mls @ 125 mls/hr IV .Q8H [facility] Last Admin: 12/15/19 04:59 Dose: 125 mls/hr Documented by: Morphine Sulfate () 4 mg IV Q3H PRN PRN PRN Reason: Pain Score 6-10/10 Nutritional Formula (Lactose Free) (Ensure Clear) 120 ml PO 4X/DAY [facility] Last Admin: 12/14/19 21:11 Dose: 120 ml Documented by: Ondansetron HCl (Zofran) 4 mg IV Q8H PRN PRN PRN Reason: NAUSEA/VOMITING Last Admin: 12/14/19 16:25 Dose: 4 mg Documented by: Oxycodone HCl (Oxyir) 5 mg PO Q4H PRN PRN PRN Reason: Pain Score 6-10/10 Sodium Chloride () 10 - 40 ml IV UD PRN PRN Reason: SALINE FLUSH Last Admin: 12/14/19 16:25 Dose: 10 ml Documented by: Medical Necessity - Tobacco Use Smoking Status: Never smoker Assessment/Plan All Active Problems (Last Reviewed 11/27/19 @ 10:11 by Maria Esther Hopkins) Encounter for education (Acute) Acute pancreatitis (Acute) 79-year-old female with acute cholecystitis, pancreatitis, past medical history for CLL recent chemo end of last month, anemia?Postop day 1 laparoscopic cholecystectomy Patient is tolerating diet, will give her some stool softeners and MiraLAX this morning to help with bowel movements. Okay to DC per surgery standpoint patient is ambulate halls still tolerating diet and vital signs are stable. Have her follow-up in about 2 weeks in the office, did talk with Dr. Yates oncology she will not have her chemo treatment next week they will delay it about 3 weeks?Also discussed with patient. Patient's hemoglobin did improve after the 1 unit packed red blood cells yesterday. Liliam Zelaya M.D. Pager: [phone] [facility] [address] [place] [address], [facility], [address] [place] [address] Office: [phone]
[2019-12-15 10:11] VITALS: BP 126/68; PULSE 91; RESP 18; TEMP 36.4; O2SAT 97
[2019-12-15] MEDS: Ensure Clear 120 ML Liquid PO ×2 (10:23→13:25)
[2019-12-15] MEDS: Docusate Sodium 100 MG Capsule PO (10:23)
[2019-12-15] MEDS: Enoxaparin 40 MG/0.4 ML Syringe SC (10:23)
[2019-12-15] MEDS: Polyethylene Glycol 3350 17 GM PACKET 34 GM PO (10:23)
--- NOTE | 2019-12-15 10:41 | PCM.DC ---
- Discharge Diagnoses Current Active Problems: Current Active and Chronic Problems (Last Reviewed 11/27/19 @ 10:11 by Maria Esther Hopkins) Acute pancreatitis (Acute) You will use the following diet at home:: No restrictions Your food should be the consistency of: Regular Call your doctor if you observe: - - worsening abdominal pain Allergies/Adverse Reactions: Allergies POLLEN Adverse Reaction (Mild, Uncoded 12/11/19 23:22) Other WATERY EYES, SNEEZING Medications to take at Discharge Multivitamin [Multiple Vitamins] 1 ea PO DAILY 01/06/17 Ibandronate Sodium [Boniva] 150 mg PO Q30D 06/23/17 Calcium Carbonate [Calcium] 1 tab PO DAILY 12/01/17 Lorazepam [Ativan] 0.5 mg PO DAILY PRN PRN 12/01/17 Hydrochlorothiazide 6.25 mg PO DAILY 10/06/18 Naproxen Sodium [Aleve] 220 mg PO DAILY PRN 03/28/19 Guaifenesin [Mucinex] 600 mg PO BID PRN 06/19/19 Acyclovir 400 mg PO BID 30 Days #60 tab 11/09/19 Allopurinol 300 mg PO DAILY 7 Days #7 tab 11/09/19 Lidocaine/Prilocaine [Lidocaine-Prilocaine Cream] 1 applicatio TP DAILY PRN PRN 30 Days #1 tube 11/09/19 Smz/Tmp Ds [Bactrim Ds] 1 tab PO MOWEFR 12/12/19 Acetaminophen [Tylenol Tablet] 650 mg PO Q6H PRN PRN tablet 12/15/19 Ferrous Sulfate 325 mg PO DAILY@1200 #30 tab 12/15/19 Ondansetron [Zofran] 8 mg PO Q8H PRN PRN 10 Days #30 tab 12/15/19 The following prescriptions were given: Ferrous Sulfate 325 mg PO DAILY@1200 #30 tab Transmission Status: Pending to [id number] Ondansetron [Zofran] 8 mg PO Q8H PRN PRN 10 Days #30 tab PRN Reason: Nausea Transmission Status: Pending to [id number] Primary Care Physician: Taylor Gross, CHRISTIANO-C [Primary Care Provider] - Within 2 Weeks Test Results: Test results from this visit will be discussed in further detail at your follow-up appointment, if applicable. Please Follow Up With: Liliam Zelaya MD When: 2-3 weeks Proposed Discharge Date: 12/15/19
--- NOTE | 2019-12-15 10:43 | DS.PCM_ITS ---
Discharge Date and Diagnosis - Problem List Patient Problems: Active and Suspected Problems (Last Reviewed 11/27/19 @ 10:11 by Maria Esther Hopkins) Acute pancreatitis (Acute) Date of Admission: 12/12/19 Date of Discharge: 12/15/19 - Primary Discharge Diagnosis Acute Problems: Active Problems (Last Reviewed 11/27/19 @ 10:11 by Maria Esther Hopkins) Acute pancreatitis (Acute) Acute cholecystitis - Secondary Discharge Diagnosis Chronic Problems: Chronic Problems (Last Reviewed 11/27/19 @ 10:11 by Maria Esther Hopkins) CLL (chronic lymphocytic leukemia) (Chronic) Thrombocytopenia (Chronic) Anemia (Chronic) Hospital Course and Treatment Imaging Results: Clinical Impression(s) from Imaging Studies Abdomen/Pelvis CT 12/11/19 23:43 IMPRESSION: Evaluation limited by lack of IV and oral contrast material. Multilevel degenerative changes of the spine. There is T12 and L5 compression fracture deformity. This was noted on prior report of October 06, 2018. No images were available at time of dictation for comparison. Fracture of L5 and T12 reported on prior imaging. If there is concern for an acute component consider MRI to further evaluate. Small bilateral pleural effusions. There is some groundglass opacities within the visualized aspects of the lungs, nonspecific. An atypical viral infectious process cannot be excluded. Recommend follow-up imaging of the chest to ensure resolution. Cardiomegaly. Hepatosplenomegaly. No hydronephrosis or nephrolithiasis. Moderate stool in the colon. No CT evidence for acute diverticulitis. Small amount of fluid within the abdomen and pelvis, nonspecific. Other findings as discussed above. Electronically Signed: Mohamud Her at 1:18 EDT Tel , Service support , Chest X-Ray 12/12/19 00:29 IMPRESSION: Mild bibasilar alveolar disease. Electronically Signed: Ranjan Alex MD at 0:45 EDT Tel , Service support , Abdomen Ultrasound 12/13/19 07:36 IMPRESSION: Large fatty infiltrated liver.. Findings consistent with cholecystitis and acute cholecystitis. Electronically Signed: Solis Huang MD at 18:26 EDT , Service support , Cholangiogram 12/14/19 10:20 IMPRESSION: Normal intraoperative cholangiogram Electronically Signed: Michael Chang MD at 11:15 EDT , Service support , Jian Zelaya: general surgery Operations: cholecystecomy, - Summary of Care Provided: The patient is a 79 year old F presents with abdominal pain. 1. Acute pancreatitis * clinically improved * lipase trending up * US showed acute cholecystitis 2. acute cholecystitis * DW Dr. Zelaya, taken to OR today * s/p lap viktoriya on 12/13 3. recent pneumonia * improving * COVID-19 negative 4. anemia * transfused 1 unit in OR * started on FeSO4 * check Hemoccult[] Patient Problems: Active and Suspected Problems (Last Reviewed 11/27/19 @ 10:11 by Maria Esther Hopkins) Acute pancreatitis (Acute) - Physical Exam Vitals/I&O's: Vital Signs Temp Pulse Resp BP Pulse Ox 36.4 C L 91 18 126/68 H 97 12/15/19 10:11 12/15/19 10:11 12/15/19 10:11 12/15/19 10:11 12/15/19 10:11 Oxygen Flow Rate (L/min) 1 Oxygen Delivery Method Room Air Weight: 56.5 kg Body Mass Index (BMI) 22.0 Intake and Output for Last 24 Hours 12/13/19 12/14/19 12/15/19 23:59 23:59 23:59 Intake Total 4320 / 4520 3578.75 / 3698.75 1395 / 1395 Output Total 300 / 750 1200 / 1300 350 / 350 Balance 4020 / 3770 2378.75 / 2398.75 1045 / 1045 General: Alert, No apparent distress HEENT: Atraumatic, Normocephalic Oral: Moist Mucosa, No Gingival or Mucosal Lesions/ Ulcerations Neck: No Nodes, Thyroid Normal Size and Texture Lungs: Clear to auscultation, Normal air movement, No rhonchi, No wheeze Cardiovascular: Regular rate, Regular Rhythm, Normal S1, Normal S2, No murmurs Abdomen: Bowel Sounds Present, Soft, Non Tender, Non-Distended, No Hepato- splenomegaly Extremities: No edema, No Calf Tenderness Laboratory Results 12/13/19 05:38: Diff Path Review Reviewed 12/14/19 05:31: Diff Path Review Reviewed 12/14/19 08:55: Blood Type O POSITIVE, Antibody Screen NEGATIVE, Crossmatch See Detail 12/15/19 05:15: WBC 6.1, RBC 3.24 L, Hgb 9.7 L, Hct 30.6 L, MCV 94.4, MCH 29.9, MCHC 31.7 L, RDW Std Deviation 52.1 H, RDW Coeff of Malu 15.1 H, Plt Count 205, MPV 9.8, Immature Gran % (Auto) 1.000 H, Neut % (Auto) 75.8 H, Lymph % (Auto) 15.9 L, [place] % (Auto) 7.0, Eos % (Auto) 0.0, Baso % (Auto) 0.3, Absolute Neuts (auto) 4.6, Absolute Lymphs (auto) 0.97, Nucleated RBC % 0 12/15/19 05:15: Sodium 137, Potassium 3.9, Chloride 111 H, Carbon Dioxide 22.0, Anion Gap 4 L, BUN 13, Creatinine 0.44 L, Estim Creat Clear Calc 38.35, Est GFR (MDRD) Af Amer 180, Est GFR (MDRD) Non-Af 149, BUN/Creatinine Ratio 29.9 H, Glucose 95, Calcium 6.8 L Current Medications Acetaminophen (Tylenol) 650 mg PO Q6H PRN PRN PRN Reason: Pain Score 1-10/10 Docusate Sodium (Colace) 100 mg PO DAILY [facility] Last Admin: 12/15/19 10:23 Dose: 100 mg Documented by: Enoxaparin Sodium (Lovenox) 40 mg SC DAILY [facility] Last Admin: 12/15/19 10:23 Dose: 40 mg Documented by: Ferrous Sulfate (Ferrous Sulfate) 325 mg PO DAILY@1200 [place] Sodium Chloride () 1,000 mls @ 125 mls/hr IV .Q8H [facility] Last Admin: 12/15/19 04:59 Dose: 125 mls/hr Documented by: Ibuprofen (Motrin) 200 - 400 mg PO Q6H PRN PRN PRN Reason: Pain 1-10/10 or Fever Ibuprofen (Motrin) 200 - 400 mg PO Q6H PRN PRN PRN Reason: Pain 1-10/10 or fever Morphine Sulfate () 4 mg IV Q3H PRN PRN PRN Reason: Pain Score 6-10/10 Nutritional Formula (Lactose Free) (Ensure Clear) 120 ml PO 4X/DAY [place] Last Admin: 12/15/19 10:23 Dose: 120 ml Documented by: Ondansetron HCl (Zofran) 4 mg IV Q8H PRN PRN PRN Reason: NAUSEA/VOMITING Last Admin: 12/14/19 16:25 Dose: 4 mg Documented by: Oxycodone HCl (Oxyir) 5 mg PO Q4H PRN PRN PRN Reason: Pain Score 6-10/10 Sodium Chloride () 10 - 40 ml IV UD PRN PRN Reason: SALINE FLUSH Last Admin: 12/14/19 16:25 Dose: 10 ml Documented by: Discharge Diet: No Restrictions Discharge Activity: Return to Normal Activity Call your doctor if you observe: - - worsening abdominal pain Home Medications: Medications to take at Discharge Multivitamin [Multiple Vitamins] 1 ea PO DAILY 01/06/17 Ibandronate Sodium [Boniva] 150 mg PO Q30D 06/23/17 Calcium Carbonate [Calcium] 1 tab PO DAILY 12/01/17 Lorazepam [Ativan] 0.5 mg PO DAILY PRN PRN 12/01/17 Hydrochlorothiazide 6.25 mg PO DAILY 10/06/18 Naproxen Sodium [Aleve] 220 mg PO DAILY PRN 03/28/19 Guaifenesin [Mucinex] 600 mg PO BID PRN 06/19/19 Acyclovir 400 mg PO BID 30 Days #60 tab 11/09/19 Allopurinol 300 mg PO DAILY 7 Days #7 tab 11/09/19 Lidocaine/Prilocaine [Lidocaine-Prilocaine Cream] 1 applicatio TP DAILY PRN PRN 30 Days #1 tube 11/09/19 Smz/Tmp Ds [Bactrim Ds] 1 tab PO MOWEFR 12/12/19 Acetaminophen [Tylenol Tablet] 650 mg PO Q6H PRN PRN tablet 12/15/19 Ferrous Sulfate 325 mg PO DAILY@1200 #30 tab 12/15/19 Ondansetron [Zofran] 8 mg PO Q8H PRN PRN 10 Days #30 tab 12/15/19 Following Prescrptions Were Given to Patient: Ferrous Sulfate 325 mg PO DAILY@1200 #30 tab Transmission Status: Pending to [id number] Ondansetron [Zofran] 8 mg PO Q8H PRN PRN 10 Days #30 tab PRN Reason: Nausea Transmission Status: Pending to [id number] Primary Care Physician: Taylor Gross NP-C [Primary Care Provider] - Within 2 Weeks Please Follow Up With: Liliam Zelaya MD When: 2-3 weeks Disposition: Home Minutes spent on discharge:: 32 Patient Condition:: Good Medical Necessity - Tobacco Use Smoking Status: Never smoker Meaningful Use Info Meaningful Use Diagnoses (Choose all that apply): None applicable Inpatient E&M: 63143 Disch Hosp
[2019-12-15 13:10] VITALS: BMI 22.1
[2019-12-15] MEDS: Ferrous Sulfate 325 MG Tablet PO (13:24)
--- NOTE | 2019-12-15 13:39 | CASEMGMT ---
Social Work Note Pt is discharging home today. EJMMA spoke with Anna at [facility] and updated her pt will be discharged home today. Shanell Chowdhury [employer], [employer]
[2019-12-15 15:36] VITALS: BP 132/71; PULSE 84; RESP 18; TEMP 36.5; O2SAT 95
[2019-12-15] MEDS: 0.9% Saline Lock 10 ML Syringe IV (15:57)
== END 2019-12-15 16:32 | disposition home or self-care (01) | DRG 418 ==
LOC: ED 12-12 01:35 → MS3 12-12 02:29
PROVIDERS: Surgery; Admitting Provider Family Medicine; Emergency Provider Emergency Medicine; PCP Nurse Practitioner; Referring Provider Family Medicine
PROC: 0FT44ZZ Resection of Gallbladder, Percutaneous Endoscopic Approach (ICD-10-PCS; CPT 47610; principal; 2019-12-14 09:00)
DX: K85.90 Acute pancreatitis without necrosis or infection, unspecified (principal); K80.00 Calculus of gallbladder with acute cholecystitis without obstruction; C91.10 Chronic lymphocytic leukemia of B-cell type not having achieved remission; K82.8 Other specified diseases of gallbladder; D64.9 Anemia, unspecified; D69.6 Thrombocytopenia, unspecified; E86.0 Dehydration; I10 Essential (primary) hypertension; F41.9 Anxiety disorder, unspecified; Z87.01 Personal history of pneumonia (recurrent); Z79.82 Long term (current) use of aspirin; Z79.899 Other long term (current) drug therapy
CPT/HCPCS: 36415; 36591; 71045; 74176; 74300; 76000; 76705; 80048; 80053; 81001; 82607; 82728; 82746; 83540; 83550; 83690; 84443; 84484; 85025; 85610; 86644; 86850; 86900; 86901; 86920; 86922; 87635; 88304; 93005; 99285; G2023; J7030; J7040; P9040; A4216; J2405; U0003

== ENCOUNTER 2019-12-16 03:36 | Inpatient (IN) | payer MEDICARE, OTHER, SELFPAY ==
[2019-12-14 08:24] VITALS: BMI 22.0
[2019-12-16] VITALS (14 sets, daily range): BP systolic 112–145; BP diastolic 67–83; PULSE 26–116; RESP 15–112; TEMP 36.4–37; O2SAT 94–99; BMI 26.5; BMI 25.7; BMI 25.8
--- NOTE | 2019-12-16 03:52 | EKG12_ITS ---
Test Reason : SOB Blood Pressure : / mmHG Vent. Rate : 101 BPM Atrial Rate : 101 BPM P-R Int : 152 ms QRS Dur : 084 ms QT Int : 308 ms P-R-T Axes : 051 -34 044 degrees QTc Int : 399 ms Sinus tachycardia Left axis deviation Low voltage QRS Cannot rule out Anteroseptal infarct , age undetermined Abnormal ECG Confirmed by SEGUNDO FOX, JODIE ([id number]), film and video editor MONIQUE IQBAL ([id number]) on 12/18/2019 1:10:11 PM Referred By: RICARDO Confirmed By:JODIE RAYMOND MD
--- NOTE | 2019-12-16 03:57 | ED.VIS.GEN ---
History of Present Illness Chief Complaint: Shortness of Breath Narrative: Patient was diagnosed with pneumonia about 10 days ago. About 5 days ago she was admitted to the hospital with gallstone pancreatitis and had a cholecystectomy. She was doing well until tonight, she developed shortness of breath she had a temperature of 100.8 at home and she has a cough. She has no chest pain she has no back pain she has slight abdominal pain but at significantly improved. Past Medical History - Allergies and Home Meds Allergies/Adverse Reactions: Allergies POLLEN Adverse Reaction (Mild, Uncoded 12/16/19 03:37) Other WATERY EYES, SNEEZING Primary Care Physician: Taylor Gross, [facility]C [Primary Care Provider] - Past Medical History: - - Hypertension, CLL, recent gallstone pancreatitis Surgical History: - - Reviewed Smoking Status: Never smoker - Family History Maternal Family History: Family History (Last Reviewed 11/27/19 @ 10:11 by Maria Esther Hopkins) Father Lung cancer Mother CVA (cerebral vascular accident) Son Waldenstrom's disease Family History: Reports: No pertinent history Review of Systems All systems negative except as indicated General: Reports: Fever Eyes: Denies: Visual changes - bilaterally ENT: Denies: Rhinorrhea, Sore throat Cardiovascular: Denies: Chest pain Respiratory: Reports: Dyspnea, Cough, Orthopnea. Denies: Sputum Gastrointestinal: Reports: Abdominal pain, - - Abdominal pain is significantly improving. Denies: Nausea, Vomiting, Diarrhea Genitourinary: Denies: Dysuria, Hematuria Musculoskeletal: Denies: Neck pain, Back pain Skin: Denies: Rash, Abscess Neurological: Denies: Headache, Weakness Endocrine: Denies: Polyuria, Polydipsia Hematologic: Denies: Easy bleeding Allergy: Denies: Swelling of the mouth, Swelling of the tongue Physical Exam Vital Signs/Narrative: Vital Signs Temp Pulse Resp BP Pulse Ox 12/16/19 03:37 97.9 F 95 18 139/83 H 99 General: Well nourished, Well developed, - - She is sitting up in bed at about 45 degrees she seems comfortable speaks in full sentences Head: Normocephalic, Atraumatic Eyes: Perrl ENT: Moist mucous membranes Neck: Supple, Nontender Cardiovascular: Regular rate, Regular rhythm, No murmurs Respiratory: No distress, - - She has some coarse bilateral breath sounds, she is not tachypneic and speaking in full sentences Abdomen: Soft, - - Minimal epigastric tenderness her incisions appear intact no signs of abdominal wall cellulitis or crepitus Back: Nontender, Normal Inspection Extremities: - - Bilateral symmetric lower extremity edema Skin: Normal color Neurological: Alert, Oriented x3 Psychological: Normal affect Diagnostic/Tx/Re-eval - Rhythm Strip Rhythm Strip: Sinus Rhythm Rate: 101 Ectopy: None - EKG Initial EKG Interpretation: - - Normal sinus rhythm with a rate of 101. Normal MT and QTc intervals. Nonspecific changes otherwise normal EKG Interpreted by emergency doctor - Medical Decision Making Patient is found to have bilateral pneumonia, she may have some fluid overload status so she does have bilateral lower extremity edema and an elevated natruretic peptide but she did have a fever at home, on reevaluation she is slightly tachycardic, her pulse ox is borderline at 92 to 93% on room air, because of the bilateral pneumonia I will admit her she was recently hospitalized therefore I put her on Vanco and Zosyn. IV Lasix was given a ED Disposition - Plan for ED Patient: Disposition: Non-Skill NH/Intermediate Care Diagnosis: Bilateral pneumonia, CHF (congestive heart failure) Referrals: Taylor Gross, [facility]C [Primary Care Provider] -
[2019-12-16] MEDS: Ipratropium/Albuterol Sulfate 3 ML AMPUL.NEB INHALATION (04:17)
[2019-12-16 04:25] LABS: Absolute Lymphocyte Count 0.61 X10^3/uL (0.83-4.51); Absolute Neutrophil Count 9.6 X10^3/uL (2.0-7.7); Basophil# 0.03 X10^3/uL; Basophil% 0.3 % (0-1); Hematocrit 30.6 % (37-47); Hemoglobin 10.1 g/dL (12.0-15.0); Lymphocyte # 0.61 X10^3/ul (4.0); Lymphocyte % 5.7 % (19-41); Mean Corpuscular Hgb 30.3 pg (27.0-32.0); Mean Corpuscular Volume 91.9 fL (81-99); Mean Platelet Vol. 9.5 fl (6.2-12.0); Monocyte# 0.38 X10^3/uL; Monocyte% 3.5 % (0-10); NRBC Flagged by Analyzer 0 % (0-5); Neutrophil # 9.63 X10^3/uL (2.7-7.7); Neutrophil % 89.8 % (47-70); Platelet Count 211 K/mm3 (150-450); RBC Distribution Width CV 14.9 % (11.6-14.6); RBC Distribution Width SD 50.1 fl (35.1-43.9); Red Blood Count 3.33 M/mm3 (4.2-5.4); White Blood Count 10.7 K/mm3 (4.4-11.0)
[2019-12-16 04:41] LABS: AST(SGOT) 13 U/L (15-37); Alanine Aminotransfer ALT/SGPT 25 U/L (13-56); Albumin, Serum 2.4 g/dL (3.2-5.0); Alkaline Phosphatase 120 U/L (45-117); Anion Gap 4 (5-15); BUN 10 mg/dL (7-18); BUN/Creat Ratio 24.7 RATIO (10-20); Calcium,Total 6.7 mg/dL (8.5-10.1); Chloride 109 mmol/L (98-107); EST Glomerular Filtration Rate 162 mL/min (>60); Est Glom Filt Rate - Afr Amer 196 mL/min (>60); Estimated Creatinine Clearance 38.35 ml/min; Globulin 2.3 g/dL (2.2-4.2); Glucose 95 mg/dL (74-106); Lipase 500 U/L (73-393); Potassium 3.1 mmol/L (3.5-5.1); Protein, Total 4.7 g/dL (6.4-8.2); Sodium Level 136 mmol/L (136-145)
[2019-12-16 04:43] LABS: Lactic Acid 0.7 mmol/L (0.4-1.9)
--- NOTE | 2019-12-16 04:45 | RAD_ITS ---
STUDY: X-RAY CHEST REASON FOR EXAM: Female, 79 years old. sob x 1 week TECHNIQUE: Frontal view COMPARISON: 12-12-19 FINDINGS: There is a RIGHT-sided Port-A-Cath. The tip is in the superior vena cava. Lungs are expanded. There are bilateral pulmonary infiltrates at the lung bases. There is small pleural effusions. There is NO pneumothorax. The heart is enlarged. Normal mediastinum and flakito. Normal visualized pulmonary arteries. Normal visualized aortic arch and descending thoracic aorta. Normal visualized thoracic spine. Normal visualized ribs, clavicles, and shoulders. There is no demonstrated abnormality of the visualized soft tissue structures of the upper abdomen. RAD/Chest 1 View (Portable) IMPRESSION: There is a RIGHT-sided Port-A-Cath. The tip is in the superior vena cava. Lungs are expanded. There are bilateral pulmonary infiltrates at the lung bases. There is small pleural effusions. There is NO pneumothorax. The heart is enlarged. Electronically Signed: Woo Auguste MD at 5:04 EDT , Service support ,
--- NOTE | 2019-12-16 05:29 | PCM.HP.STD ---
Problem List (1) Sepsis Status: Acute (2) Bilateral pneumonia Status: Acute (3) CHF (congestive heart failure) Status: Acute (4) CLL (chronic lymphocytic leukemia) Status: Chronic (5) Thrombocytopenia Status: Chronic (6) Anemia Status: Chronic History of Present Illness Date of Admission: 12/16/19 Chief Complaint: Shortness of breath The patient is a 79 year old F with a significant history of CLL who presents to the emergency department with shortness of breath while sleeping at night. Associated with her symptoms is orthopnea, paroxysmal nocturnal dyspnea, insomnia and anorexia. Also she has a productive cough of clear sputum. Her shortness of breath started about a week ago and she was placed on azithromycin for pneumonia. Following that she was at our hospital ([facility]) on 12/12/2019 to 12/15/2019 where she was diagnosed with gallstone pancreatitis, received IV fluids and had a laparoscopic cholecystectomy. She reported home temperature of 100.8 Fahrenheit. She denies coming to contact with anybody with COVID- 19 virus. Chest x-ray at emergency department showed bilateral pulmonary infiltrates, and small bilateral pleural effusion. Her BNP was elevated. Patient was given Zosyn, vancomycin, and Lasix at the emergency department. Past Medical History Past Medical History (Chronic Problems): Chronic Problems (Last Reviewed 12/16/19 @ 06:[address] Luis Varghese MD) CLL (chronic lymphocytic leukemia) (Chronic) Thrombocytopenia (Chronic) Anemia (Chronic) Medical History: Medical History (Last Reviewed 12/16/19 @ 06:[address] Luis Varghese MD) CLL (chronic lymphocytic leukemia) (Chronic) C91.10 Thrombocytopenia (Chronic) D69.6 Anemia (Chronic) D64.9 Compression fracture OCTOBER 06, 2018 History of pneumonia Z87.01 History of urinary tract infection Z87.440 Measles B05.9 Mumps B26.9 PORT PLACEMENT NOVEMBER 15 2019 bilateral ankle surgery 1955 varicose veins Hypertension I10 Allergies POLLEN Adverse Reaction (Mild, Uncoded 12/16/19 03:37) Other WATERY EYES, SNEEZING Home Medications: Ambulatory Orders Medication Instructions Recorded Multivitamin [Multiple Vitamins] 1 ea PO DAILY 01/06/17 Ibandronate Sodium [Boniva] 150 mg PO Q30D 06/23/17 Calcium Carbonate [Calcium] 1 tab PO DAILY 07/11/18 Lorazepam [Ativan] 0.5 mg PO DAILY PRN PRN 12/01/17 Hydrochlorothiazide 6.25 mg PO DAILY 10/06/18 Naproxen Sodium [Aleve] 220 mg PO DAILY PRN 03/28/19 Guaifenesin [Mucinex] 600 mg PO BID PRN 06/19/19 Acyclovir 400 mg PO BID 30 Days #60 tab 11/09/19 Allopurinol 300 mg PO DAILY 7 Days #7 tab 11/09/19 Lidocaine/Prilocaine 1 applicatio TP DAILY PRN PRN 30 11/09/19 [Lidocaine-Prilocaine Cream] Days #1 tube Smz/Tmp Ds [Bactrim Ds] 1 tab PO MOWEFR 12/12/19 Acetaminophen [Tylenol Tablet] 650 mg PO Q6H PRN PRN tab 12/15/19 Ferrous Sulfate 325 mg PO DAILY@1200 #30 tab 12/15/19 Ondansetron [Zofran] 8 mg PO Q8H PRN PRN 10 Days #30 tab 12/15/19 Surgical History: Surgical History (Last Reviewed 11/27/19 @ 10:11 by Maria Esther Hopkins) History of foot surgery Z98.890 Surgical History: cholecystectomy, - - Port-A-Cath placement Smoking Status: Never smoker - *Family History Maternal Family History: Family History (Last Reviewed 12/16/19 @ 06:[address] Luis Varghese MD) Father Lung cancer Mother CVA (cerebral vascular accident) Son Waldenstrom's disease Review of Systems Constitutional: Reports: Anorexia, Fever, Malaise. Denies: Weight Change HEENT: Denies: Head Aches, Sinus Congestion, Sinus Drainage Cardiovascular: Reports: Heaviness, Orthopnea, Paroxysmal Noc. Dyspnea. Denies: Chest Pain, Palpitations Respiratory: Reports: Cough, Shortness of breath at rest, Sputum production Gastrointestinal: Reports: - - Abdominal bloating. Denies: Abdominal Pain, Nausea, Vomiting Genitourinary: Denies: Dysuria Musculoskeletal: Denies: Joint Pain, Joint Tenderness Skin: Denies: Rash, Wounds Neurological: Denies: Numbness, Tingling, Focal weakness Psychiatric: Denies: Anxiety, Depression, Homicidal Ideations, Suicidal Ideations Hematologic/ Lymphatic: Denies: Easy Bruising, Easy Bleeding VTE Information - Inpt Only VTE Present on Admission: No VTE Mechan Device Prophylaxis: None VTE Pharm Prophylaxis ordered?: Yes Patient Problems: Active and Suspected Problems (Last Reviewed 12/16/19 @ 06:[address] Luis Varghese MD) Bilateral pneumonia (Acute) CHF (congestive heart failure) (Acute) Sepsis (Acute) - Physical Exam Vitals/I&O's: Vital Signs Temp Pulse Resp BP Pulse Ox 97.9 F 82 18 139/83 H 94 12/16/19 03:37 12/16/19 04:33 12/16/19 04:33 12/16/19 03:37 12/16/19 04:33 Oxygen Delivery Method Room Air Weight: 67.9 kg Body Mass Index (BMI) 26.5 General: Alert, Oriented x3, Cooperative, - - Appears ill and in respiratory distress HEENT: Atraumatic, PERRLA, EOMI, Normocephalic Neck: Supple, Trachea Midline Lungs: Short of Breath, Tachypneic, Using Accessory Muscles, Wheezes - Mild, - - Conversational dyspnea Cardiovascular: Regular Rhythm, Normal S1, Normal S2, No murmurs, Tachycardic Abdomen: Bowel Sounds Present, Soft, Non Tender Extremities: No edema, Capillary Refill Less than 3 Seconds Skin: No rashes, No breakdown, - - Abdomen with multiple dry dressing (from recent laparoscopic cholecystectomy) Musculoskeletal: No Tenderness to Palpation of Joints or Extremities Neurological: Cranial nerves II-XII grossly intact Psych/Mental Status: Anxious Laboratory Results 12/16/19 04:05: WBC 10.7, RBC 3.33 L, Hgb 10.1 L, Hct 30.6 L, MCV 91.9, MCH 30.3, MCHC 33.0, RDW Std Deviation 50.1 H, RDW Coeff of Malu 14.9 H, Plt Count 211, MPV 9.5, Immature Gran % (Auto) 0.700, Neut % (Auto) 89.8 H, Lymph % (Auto) 5.7 L, [place] % (Auto) 3.5, Eos % (Auto) 0.0, Baso % (Auto) 0.3, Absolute Neuts (auto) 9.6 H, Absolute Lymphs (auto) 0.61 L, Nucleated RBC % 0 12/16/19 04:05: Sodium 136, Potassium 3.1 L, Chloride 109 H, Carbon Dioxide 23.0, Anion Gap 4 L, BUN 10, Creatinine 0.40 L, Estim Creat Clear Calc 38.35, Est GFR (MDRD) Af Amer 196, Est GFR (MDRD) Non-Af 162, BUN/Creatinine Ratio 24.7 H, Glucose 95, Calcium 6.7 L, Total Bilirubin 0.60, AST 13 L, ALT 25, Alkaline Phosphatase 120 H, Total Protein 4.7 L, Albumin 2.4 L, Globulin 2.3, Albumin/Globulin Ratio 1.0, Lipase 500 H 12/16/19 04:05: Lactic Acid 0.7 12/16/19 04:05: B-Natriuretic Peptide 2265.7 H Current Medications Vancomycin HCl (Vancomycin) 1,000 mg in 200 mls @ 200 mls/hr IV PREOP ONE Stop: 12/16/19 06:15 Piperacillin Sod/Tazobactam (Sod 4.5 gm/ Sodium Chloride) 100 mls @ 200 mls/hr IV X1 ONE Stop: 12/16/19 05:45 Assessment/Plan All Active Problems (Last Reviewed 12/16/19 @ 06:[address] Luis Varghese MD) Bilateral pneumonia (Acute) CHF (congestive heart failure) (Acute) Sepsis (Acute) The patient is a 79 year old F with a significant history of CLL who presents emergency department with shortness of breath while sleeping at night; orthopnea, paroxysmal nocturnal dyspnea, insomnia and anorexia; productive cough; elevated BNP; fever; tachycardia; tachypnea; bilateral dry pulmonary infiltrates and pleural effusion in the setting of recent azithromycin for pneumonia; and recent fluid administration and cholecystectomy for gallstone pancreatitis.. Sepsis secondary to pneumonia Possible gram-positive or gram-negative. Sirs criteria: Respiratory rate of more than 20; heart rate of more than 90; patient reported a temperature of 100.8 Fahrenheit at home and took Tylenol. Lactic acid: 0.7 Blood culture ?2 ordered at emergency department; follow. Chest x-ray: Actual image of chest x-ray was reviewed. It showed bilateral pulmonary infiltrates with bilateral small pleural effusion. Respiratory Gram stain and culture pending Antibiotics: Because of recent admission at the hospital patient was started on vancomycin and Zosyn at emergency department. Vancomycin and Zosyn ordered inpatient. PRN albuterol inhalation. Incentive spirometer and chest physiotherapy ordered In the setting of elevated pandemic COVID-19 MADINA was ordered at the emergency department. Enhanced droplet precautions ordered. Procalcitonin, ferritin and triglyceride ordered. Legionella antigen screen and Strep antigen ordered Acute Heart failure Unspecified systolic or diastolic. Patient symptomatology also looks like heart failure. Chest x-ray with bilateral pulmonary infiltrates in bilateral leg edema. BNP is elevated. Probably patient has some baseline heart failure which has been exacerbated by IV fluid administration for pancreatitis. Received Lasix 40 mg IV at emergency department. Discussed with emergent department doctor to give some potassium especially as his potassium was 3.1. Lasix 40 mg IV push twice daily with supplemental potassium ordered.Weight on admission to the floor; and then daily Strict I&O's Echo ordered to evaluate LVEF and wall motion. Monitor electrolytes and renal function Trend blood pressure If echocardiogram shows systolic heart failure consider goal directed medical therapy for systolic heart failure. Brent wrap to bilateral lower extremities Fluid restriction of 1500 mls daily 2 g cardiac diet CLL Patient follows up with Dr. Taylor Port-A-Cath in place On home acyclovir and Bactrim in the setting of immunosuppression. Elevated lipase Lipase on admission was 500. Review of old record showed that her lipase has improved. Patient is recovering from acute pancreatitis. Pseudo-hypocalcemia Calcium on presentation was 6.7 Albumin is 2.4. Corrected calcium is 9.7. DVT prophylaxis Subcutaneous Lovenox. Inpatient E&M: [id number] Init Hosp L3
--- NOTE | 2019-12-16 06:02 | ECHOD_ITS ---
Reason For Study: DYSPNEA Procedure This was a 2D Doppler, Color Flow transthoracic echocardiogram. Exam performed portable in patient room. Left Ventricle Mildly dilated left ventricle. The estimated ejection fraction is 35-40 %. Stage 1 diastolic dysfunction. There is moderate global hypokinesis of the left ventricle. Right Ventricle Normal size and thickness. Normal systolic function. Atria The left atrium is mildly enlarged. Normal right atrium. Normal atrial septum. Mitral Valve The mitral valve is structurally normal. No prolapse or stenosis seen. Trivial mitral valve insufficiency. Tricuspid Valve Normal tricuspid valve. Trivial tricuspid valve insufficiency. Right ventricular systolic pressure estimated to be 34 mmHg. Aortic Valve Normal aortic valve. Trisinus/trileaflet aortic valve. Pulmonic Valve Normal pulmonic valve. Great Vessels Normal aortic root. Normal arch. Normal inferior vena cava. Inferior vena cava collapse with sniff. Pericardium/Pleural No pericardial effusion. Moderate size left pleural effusion. MMode/2D Measurements & Calculations LVIDd: 4.7 cm IVSd: 0.95 cm Ao root diam: 3.1 cm LVIDs: 3.9 cm LVPWd: 1.0 cm RVDd: 3.5 cm FS: 16.5 % LAV(MOD-bp): 65.9 ml LA A4 area: 22.4 cm2 LA dimension(2D): 4.3 cm LAV(MOD-bp) Indexed: 38.6 ml/m2 LAV(MOD-sp2): 53.3 ml LAV(MOD-sp4): 66.8 ml RA A4 area: 13.3 cm2 Doppler Measurements & Calculations MV E max jeremiah: 64.2 cm/sec Lat Peak E' Jeremiah: 6.3 cm/sec Med Peak E' Jeremiah: 3.5 cm/sec MV A max jeremiah: 110.3 cm/sec E/E' lat: 10.3 E/E' med: 18.1 MV E/A: 0.58 Ao V2 max: 120.2 cm/sec LV V1 max: 85.5 cm/sec PA V2 max: 88.1 cm/sec Ao max P.8 mmHg LV V1 max P.9 mmHg PI end-d jeremiah: 126.2 cm/sec TR max jeremiah: 267.9 cm/sec TR max P.7 mmHg Interpretation Summary Mildly dilated left ventricle. The estimated ejection fraction is 35-40 %. Stage 1 diastolic dysfunction. There is moderate global hypokinesis of the left ventricle. The left atrium is mildly enlarged. Trivial mitral valve insufficiency. Trivial tricuspid valve insufficiency. Moderate size left pleural effusion. Right ventricular systolic pressure estimated to be 34 mmHg. There is no comparison study available. Ordering Physician: Luis Varghese Referring Physician: MARCELLUS MARTEL Performed By: Demetria Salazar, MARC, RVT
[2019-12-16] MEDS: Furosemide 40 MG/4 ML Vial IV ×3 (06:13→18:00)
--- NOTE | 2019-12-16 06:32 | ED.RN ---
PER ICU STAFF NOT ENOUGH NURSES TO TAKE PT, REPORT CALLED TO CARLIE KRAMER.
--- NOTE | 2019-12-16 06:34 | ED.RN ---
VANCOMYCIN HAS NOT COME UP FROM PHARMACY. SAGE IN PHARMACY SAID HE WOULD CHECK ON IT AND SEND IT UP TO ICU. WILLIAMS SEXTON IN ICU IS AWARE PT HAS NOT YET RECEIVED THE VANCOMYCIN AND THAT IT IS TO BE SENT UP TO THE ICU BY PHARMACY.
--- NOTE | 2019-12-16 06:51 | NURSING ---
ICU 5 CHF, PNEUMONIA DR MERCADO
[2019-12-16 07:50] LABS: Probe Check PASS; Specimen Processing Control PASS
--- NOTE | 2019-12-16 07:52 | ED.RN ---
LINENS CHANGED, BRIEF AND PUREWICK PLACED. PATIENT REPOSITIONED FOR COMFORT. BED IN LOW AND LOCKED POSITION, CALL LIGHT WITHIN REACH. PATIENT DENIES FURTHER NEEDS AT THIS TIME. AWARE OF WAIT FOR COVID RESULTS PRIOR TO ADMISSION.
--- NOTE | 2019-12-16 08:09 | ED.RN ---
VANC NOT AVAILABLE IN ER AT THIS TIME. ICU LOOKING FOR THE MEDICATION. PT GOING TO THE FLOOR AT THIS TIME
[2019-12-16 09:23] LABS: Fibrinogen 440 mg/dl (203-444); International Normalized Ratio 1.1; Prothrombin Time (Protime)PT. 14.1 SECONDS (11.7-14.9)
[2019-12-16] MEDS: Calcium (Elemental) 500 MG Tablet PO (09:33)
[2019-12-16] MEDS: Multivitamins,Therapeutic Tablet 1 TABLET PO (09:33)
[2019-12-16] MEDS: Enoxaparin 40 MG/0.4 ML Syringe SC (09:34)
[2019-12-16] MEDS: guaiFENesin 1,200 MG Tablet 1200 MG PO ×2 (09:34→21:59)
[2019-12-16] MEDS: Acyclovir 200 MG Capsule 400 MG PO ×2 (09:34→21:59)
[2019-12-16] MEDS: hydroCHLOROthiazide 6.25mg TAB 6.25 MG PO (09:35)
[2019-12-16 09:46] LABS: Ferritin 165 ng/mL (8-252); Triglycerides 112 mg/dL
[2019-12-16 09:52] LABS: LDH 146 U/L (84-246)
[2019-12-16] MEDS: Ondansetron 4 MG/2 ML Vial IV (09:54)
[2019-12-16 10:16] LABS: Procalcitonin 0.21 ng/mL (0.00-0.09)
--- NOTE | 2019-12-16 11:10 | CASEMGMT ---
[facility] CM Readmission Note Previous Admission: 12/11-12/15/2019 Diagnosis: Pancreatitis, lap choley on 12/14/2019 DC Disposition: Home. Palliative Referral made Current Admission Presentation: Bilateral pneumonia Patient presented after one day post dc with shortness of breath and temp 100.8. CXR shows ian puulmonary infiltrates. Pt had recent treatment for pneumonia with Azithromycin. Patient was afebrile and 97% on RA on day of dc. Plans to return home on discharge. DC Plan: anticipate able to return home on dc. Pt is currently on 2L NC, does not have home oxygen. CM available to assist if dc needs arise.
--- NOTE | 2019-12-16 12:13 | PCM.PN.HOSP ---
Patient Problems: Active and Suspected Problems (Last Reviewed 12/16/19 @ 06:[address] Luis Varghese MD) Bilateral pneumonia (Acute) CHF (congestive heart failure) (Acute) Sepsis (Acute) Reason for Visit: CHF Subjective: States she was breathing well when she left but then when she lied flat at home she had shortness of breath. Presented to the emergency room and had a BNP elevation of greater than 2000. Concern was for pneumonia and COVID and but the COVID was negative. Patient had low-grade temperature of 100.8 at home. Vitals/I&O's: Vital Signs Temp Pulse Resp BP Pulse Ox 36.6 C 99 18 112/68 98 12/16/19 09:02 12/16/19 09:02 12/16/19 09:02 12/16/19 09:02 12/16/19 11:00 Oxygen Flow Rate (L/min) 2 Oxygen Delivery Method Nasal Cannula Weight: 66 kg Body Mass Index (BMI) 25.7 Intake and Output for Last 24 Hours 12/14/19 12/15/19 12/16/19 23:59 23:59 23:59 Intake Total 100 / 100 Balance 100 / 100 General: Alert, No apparent distress HEENT: Atraumatic, Normocephalic Oral: Moist Mucosa, No Gingival or Mucosal Lesions/ Ulcerations Neck: No Nodes, Thyroid Normal Size and Texture Lungs: Diminished - in bases, - - crackles throughout Cardiovascular: Regular rate, Regular Rhythm, Normal S1, Normal S2, No murmurs Abdomen: Bowel Sounds Present, Soft, Non Tender, Non-Distended, No Hepato-splenomegaly Extremities: No Calf Tenderness, Edema Microbiology Past 72 Hours 12/16/19 05:50 Mucosa - Nasopharyngeal Respiratory Panel (PCR) - Final Laboratory Results 12/16/19 04:05: WBC 10.7, RBC 3.33 L, Hgb 10.1 L, Hct 30.6 L, MCV 91.9, MCH 30.3, MCHC 33.0, RDW Std Deviation 50.1 H, RDW Coeff of Malu 14.9 H, Plt Count 211, MPV 9.5, Immature Gran % (Auto) 0.700, Neut % (Auto) 89.8 H, Lymph % (Auto) 5.7 L, [place] % (Auto) 3.5, Eos % (Auto) 0.0, Baso % (Auto) 0.3, Absolute Neuts (auto) 9.6 H, Absolute Lymphs (auto) 0.61 L, Nucleated RBC % 0 12/16/19 04:05: Sodium 136, Potassium 3.1 L, Chloride 109 H, Carbon Dioxide 23.0, Anion Gap 4 L, BUN 10, Creatinine 0.40 L, Estim Creat Clear Calc 38.35, Est GFR (MDRD) Af Amer 196, Est GFR (MDRD) Non-Af 162, BUN/Creatinine Ratio 24.7 H, Glucose 95, Calcium 6.7 L, Total Bilirubin 0.60, AST 13 L, ALT 25, Alkaline Phosphatase 120 H, Total Protein 4.7 L, Albumin 2.4 L, Globulin 2.3, Albumin/Globulin Ratio 1.0, Lipase 500 H 12/16/19 04:05: Lactic Acid 0.7 12/16/19 04:05: B-Natriuretic Peptide 2265.7 H 12/16/19 05:50: COVID-19 (MADINA) Negative 12/16/19 08:55: PT 14.1, INR 1.1, Fibrinogen 440 12/16/19 08:55: Lactate Dehydrogenase 146, Troponin I 0.056 H 12/16/19 08:55: Procalcitonin 0.21 H 12/16/19 08:55: Ferritin 165, Triglycerides 112 Current Medications Acetaminophen (Tylenol) 650 mg PO Q6H PRN PRN PRN Reason: Pain Score 1-10/Temp > 100.7 F Acyclovir (Zovirax) 400 mg PO BID [facility] Last Admin: 12/16/19 09:34 Dose: 400 mg Documented by: Al Hydroxide/Mg Hydroxide (Mylanta Ii) 30 ml PO Q6H PRN PRN PRN Reason: Gastric Burning Albuterol Sulfate (Ventolin Aerosols) 2.5 mg INHALATION Q2H PRN PRN PRN Reason: SOB/WHEEZING Cal[facility] ([facility]Stephan 500) [facility] Admin: 12/16/19 09:33 Dose: 500 mg Documented by: Dextrose (D50w Syringe) 0 gm IV X1 PRN; Protocol PRN Reason: Hypoglycemia Enoxaparin Sodium (Lovenox) 40 mg SC DAILY [facility] Last Admin: 12/16/19 09:34 Dose: 40 mg Documented by: Ferrous Sulfate (Ferrous Sulfate) 325 mg PO DAILY@1200 [facility] Furosemide (Lasix) 40 mg IV BID@1000,1800 [facility] Last Admin: 12/16/19 09:33 Dose: 40 mg Documented by: Glucagon () 1 mg IM .X1 PRN PRN Reason: Hypoglycemia Guaifenesin (Mucinex) 1,200 mg PO BID [facility] Last Admin: 12/16/19 09:34 Dose: 1,200 mg Documented by: Hydrochlorothiazide () 6.25 mg PO DAILY [facility] Last Admin: 12/16/19 09:35 Dose: 6.25 mg Documented by: Piperacillin Sod/Tazobactam (Sod 3.375 gm/ Sodium Chloride) 50 mls @ 12.5 mls/hr IV Q8 [facility] Lorazepam (Ativan) 0.5 mg PO DAILY PRN PRN PRN Reason: ANXIETY Melatonin (Melatonin) 3 mg PO QHS PRN PRN PRN Reason: INSOMNIA Multivitamins ([facility]ivitamin) [facility] Last Admin: 12/16/19 09:33 Dose: 1 tablet Documented by: Ondansetron HCl (Zofran) 4 mg IV Q8H PRN PRN PRN Reason: NAUSEA/VOMITING Last Admin: 12/16/19 09:54 Dose: 4 mg Documented by: Potassium Chloride (K-Dur) [facility] Last Admin: 12/16/19 09:40 Dose: 40 meq Documented by: Senna/Docusate Sodium (Senokot-S, Crystal-Colace) 2 tablet PO BID PRN PRN PRN Reason: Constipation Sodium Chloride () 10 - 40 ml IV UD PRN PRN Reason: SALINE FLUSH Trimethoprim/Sulfamethoxazole (Bactrim Ds) 1 tablet PO MoWeFr@0800 [facility] STROKE Vital Signs/Narrative: Vital Signs Temp Pulse Resp BP Pulse Ox 12/16/19 11:00 98 12/16/19 09:02 36.6 C 99 18 112/68 97 12/16/19 08:56 100 Medical Necessity - Tobacco Use Smoking Status: Never smoker Assessment/Plan All Active Problems (Last Reviewed 12/16/19 @ 06:[address] Luis Varghese MD) Bilateral pneumonia (Acute) CHF (congestive heart failure) (Acute) Sepsis (Acute) 1. AECHF: unclear type. continue furosemide. DC abx and observe. Check echo 2. recent pancreatitis: received copious fluids during admission that likely precipitated this event. 3. VTE proph: LMWH Procedures: Other Procedure - See Report - non billable rounding. Pt seen after midnight.
[2019-12-16] MEDS: Acetaminophen 325 MG Tablet 650 MG PO (15:31)
[2019-12-16] MEDS: Ferrous Sulfate 325 MG Tablet PO (17:59)
[2019-12-16] MEDS: 0.9% Saline Lock 10 ML Syringe IV (18:00)
[2019-12-16] MEDS: Aspirin 81 MG TAB.CHEW PO (18:00)
[2019-12-17] VITALS (13 sets, daily range): BP systolic 103–127; BP diastolic 57–71; PULSE 93–105; RESP 15–24; TEMP 36.6–36.8; O2SAT 94–100
[2019-12-17 05:42] LABS: Absolute Lymphocyte Count 0.38 X10^3/uL (0.83-4.51); Absolute Neutrophil Count 4.1 X10^3/uL (2.0-7.7); Basophil# 0.03 X10^3/uL; Basophil% 0.6 % (0-1); Hematocrit 29.8 % (37-47); Hemoglobin 9.5 g/dL (12.0-15.0); Lymphocyte # 0.38 X10^3/ul (4.0); Lymphocyte % 7.9 % (19-41); Mean Corp Hgb Conc 31.9 g/dL (32-36); Mean Corpuscular Hgb 29.8 pg (27.0-32.0); Mean Corpuscular Volume 93.4 fL (81-99); Mean Platelet Vol. 9.8 fl (6.2-12.0); Monocyte# 0.27 X10^3/uL; Monocyte% 5.6 % (0-10); NRBC Flagged by Analyzer 0 % (0-5); Neutrophil # 4.13 X10^3/uL (2.7-7.7); Neutrophil % 85.3 % (47-70); POSITIVE DIFFERENTIAL YES; Platelet Count 152 K/mm3 (150-450); RBC Distribution Width CV 14.9 % (11.6-14.6); Red Blood Count 3.19 M/mm3 (4.2-5.4); White Blood Count 4.8 K/mm3 (4.4-11.0)
[2019-12-17 06:03] LABS: Differential Indicated SCAN CRITERIA MET
[2019-12-17 06:14] LABS: Differential Comment SCANNED
[2019-12-17 06:19] LABS: Anion Gap 6 (5-15); BUN 10 mg/dL (7-18); BUN/Creat Ratio 16.3 RATIO (10-20); Calcium,Total 7.1 mg/dL (8.5-10.1); Chloride 103 mmol/L (98-107); Creatinine, Serum 0.61 mg/dL (0.55-1.02); EST Glomerular Filtration Rate 100 mL/min (>60); Est Glom Filt Rate - Afr Amer 121 mL/min (>60); Estimated Creatinine Clearance 38.35 ml/min; Glucose 112 mg/dL (74-106); Potassium 3.2 mmol/L (3.5-5.1); Sodium Level 135 mmol/L (136-145)
[2019-12-17] MEDS: Multivitamins,Therapeutic Tablet 1 TABLET PO (08:56)
[2019-12-17] MEDS: Calcium (Elemental) 500 MG Tablet PO (08:56)
[2019-12-17] MEDS: Aspirin 81 MG TAB.CHEW PO (09:03)
--- NOTE | 2019-12-17 09:17 | PCM.CONS.C ---
Problem List (1) CHF (congestive heart failure) Status: Acute Reason for Consult Date of Consultation: 12/17/19 Reason for Consultation: Newly discovered congestive heart failure, abnormal EKG History of Present Illness: The patient is a 79 year old F, with a history of hypertension, nondiabetic, unknown cholesterol, no known previous coronary disease, no previous stress test or catheterization. She also has a history of CLL and was treated with chemotherapy on 11/20/2019 with Rituxan and bendamustine. In addition, the patient was recently admitted for what sounds like gallstone pancreatitis, and underwent cholecystectomy and subsequently discharged on 12/14/2019. Very soon after the patient began developing progressively worsening shortness of breath, dyspnea on exertion, orthopnea and PND. Patient had difficulty breathing and sought medical attention at [facility] ER on 12/16/2019. At that time an EKG was performed which showed normal sinus rhythm and evidence of old anteroseptal wall and old inferior wall myocardial infarction, no acute changes. We have no old EKGs for comparison. Patient was found to have a left pleural effusion on chest x-ray and an echocardiogram was performed on 12/16/2019 with the following results: Mildly dilated left ventricle. The estimated ejection fraction is 35-40 %. Stage 1 diastolic dysfunction. There is moderate global hypokinesis of the left ventricle. The left atrium is mildly enlarged. Trivial mitral valve insufficiency. Trivial tricuspid valve insufficiency. Moderate size left pleural effusion. Right ventricular systolic pressure estimated to be 34 mmHg. There is no comparison study available. On further history the patient states that she had midsternal chest pain prior to her gallbladder surgery and is subsequently gotten worse since discharge at home. [] Past Medical History Allergies/Adverse Reactions: Allergies POLLEN Adverse Reaction (Mild, Uncoded 12/16/19 03:37) Other WATERY EYES, SNEEZING Home Medications: Ambulatory Orders Medication Instructions Recorded Multivitamin [Multiple Vitamins] 1 ea PO DAILY 01/06/17 Ibandronate Sodium [Boniva] 150 mg PO Q30D 06/23/17 Calcium Carbonate [Calcium] 1 tab PO DAILY 12/01/17 Lorazepam [Ativan] 0.5 mg PO DAILY PRN PRN 12/01/17 Hydrochlorothiazide 6.25 mg PO DAILY 10/06/18 Naproxen Sodium [Aleve] 220 mg PO DAILY PRN 03/28/19 Guaifenesin [Mucinex] 600 mg PO BID PRN 06/19/19 Acyclovir 400 mg PO BID 30 Days #60 tab 11/09/19 Lidocaine/Prilocaine 1 applicatio TP DAILY PRN PRN 30 11/09/19 [Lidocaine-Prilocaine Cream] Days #1 tube Smz/Tmp Ds [Bactrim Ds] 1 tab PO MOWEFR 12/12/19 Acetaminophen [Tylenol Tablet] 650 mg PO Q6H PRN PRN tab 12/15/19 Ferrous Sulfate 325 mg PO DAILY@1200 #30 tab 12/15/19 Ondansetron [Zofran] 8 mg PO Q8H PRN PRN 10 Days #30 tab 12/15/19 Allopurinol [Zyloprim] 300 mg PO DAILY PRN 12/16/19 Past Medical History (Chronic Problems): Chronic Problems (Last Reviewed 12/16/19 @ 06:[address] Luis Varghese MD) CLL (chronic lymphocytic leukemia) (Chronic) Thrombocytopenia (Chronic) Anemia (Chronic) Surgical History: cholecystectomy, - - Port-A-Cath placement - *Family History Maternal Family History: Family History (Last Reviewed 12/16/19 @ 06:[address] Luis Varghese MD) Father Lung cancer Mother CVA (cerebral vascular accident) Son Waldenstrom's disease History Items: No pertinent history Smoking Status: Never smoker Review of Systems - Review of Systems General: Denies: Fever, Night Sweats, Fatigue Cardiovascular: Reports: Chest Discomfort, Chest Discomfort at Rest, Shortness of Breath, Shortness of Breath at Rest, Orthopnea, PND, Peripheral Edema. Denies: Palpitations, Lightheadedness, Dizziness, Near Syncope, Syncope Respiratory: Denies: Cough, Sputum Production, Hemoptysis Gastrointestinal: Denies: Hematemesis, Hematochezia, Melena Genitourinary: Denies: Dysuria, Hematuria Skin: Denies: Rash Subjectve: Patient laying in bed with a 60 degree incline due to orthopnea. No acute distress however. Objective: Vital Signs Temp Pulse Resp BP Pulse Ox 97.8 F 99 15 119/69 95 12/17/19 08:45 12/17/19 08:45 12/17/19 08:45 12/17/19 08:45 12/17/19 08:45 Oxygen Flow Rate (L/min) 93 Oxygen Delivery Method Room Air Weight: 142 lb 10.225 oz Body Mass Index (BMI) 25.7 Intake and Output for Last 24 Hours 12/15/19 12/16/19 12/17/19 23:59 23:59 23:59 Intake Total 1250 / 1250 120 / 120 Output Total 2550 / 2550 250 / 250 Balance -1300 / -1300 -130 / -130 General: Awake, Alert, Oriented x 3 HEENT: PERRL, EOMI, Sclera Non Icteric Neck: Supple, Good ROM, No Lymph Node Enlargement Lungs: Diminished Left Base Cardiovascular: Regular Rhythm, Normal S1, Normal S2, No Murmurs, No Rubs, No Gallops Vascular: No Carotid Bruits, Normal Femoral Pulses, Normal Radial Pulses, Normal Dorsalis Pedal Pulse, Normal Posterior Tibial Pulses Abdomen: Bowel Sounds Present, Soft, Non Tender, No HSM, No Organomegaly Extremities: No Cyanosis, No Clubbing, No edema Neurological: No Focal Motor or Sensory Deficit 12/16/19 08:55: PT 14.1, INR 1.1 12/16/19 08:55: Troponin I 0.056 H 12/16/19 08:55: Ferritin 165, Triglycerides 112 12/16/19 17:00: Troponin I 0.049 H 12/16/19 18:17: Troponin I 0.034 12/17/19 05:16: WBC 4.8, RBC 3.19 L, Hgb 9.5 L, Hct 29.8 L, MCV 93.4, MCH 29.8, MCHC 31.9 L, Plt Count 152, MPV 9.8, Immature Gran % (Auto) 0.600, Neut % (Auto) 85.3 H, Lymph % (Auto) 7.9 L, [place] % (Auto) 5.6, Eos % (Auto) 0.0, Baso % (Auto) 0.6, Absolute Neuts (auto) 4.1, Nucleated RBC % 0 12/17/19 05:16: Sodium 135 L, Potassium 3.2 L, Chloride 103, Carbon Dioxide 26.0, Anion Gap 6, BUN 10, Creatinine 0.61, Est GFR (MDRD) Af Amer 121, Est GFR (MDRD) Non-Af 100, BUN/Creatinine Ratio 16.3, Glucose 112 H, Calcium 7.1 L Rhythm: EKG: ECHO: Stress Test: Cardiac Cath: PCI: CT Surgery: Holter monitor: EPS: PPM: CXR: Chest CT Scan: Assessment/Plan 1. Congestive heart failure: The patient has newly discovered congestive heart failure with evidence on EKG of old anteroseptal and inferior wall myocardial infarction. We will attempt to get old EKGs from her most recent surgery. Patient complains of progressively worsening dyspnea on exertion as well as midsternal chest pain ever since her surgery. She has never undergone cardiac catheterization. At this point I recommend the patient be started on Lasix IV 40 mg twice daily and attempt to slowly diurese her. This appears to be effective. We will discontinue her hydrochlorothiazide. In addition I recommend continuing lisinopril 10 mg p.o. daily for afterload reduction. Once she is reached her dry weight, we would recommend initiating Coreg 3.125 mg p.o. twice daily. Once the patient is able to lay down flat for a period of time, she will require a diagnostic left heart catheterization to assess her coronary anatomy. Recommend baby aspirin 81 mg p.o. daily at this time. In addition I recommend loading her with Plavix 300 mg x 1 now followed by 75 mg p.o. daily in the event the patient may require coronary intervention. Also recommend a 1500 cc fluid restriction. The literature states that therapy with rituximab or bendamustine is not significantly associated with an increased occurrence of cardiotoxicity or CHF, but in rare instances it can contribute to congestive heart failure.. 2. Hyperlipidemia: Recommend obtaining a fasting lipid profile. 3. Thank you very much for the opportunity to participate in the cardiac care of your patient. Consultation time took place between 845 and 9:30 AM. Inpatient E&M: 94871 Init Hosp L2
[2019-12-17] MEDS: 0.9% Saline Lock 10 ML Syringe IV ×2 (10:37→17:54)
[2019-12-17] MEDS: Furosemide 40 MG/4 ML Vial IV ×2 (10:38→17:54)
[2019-12-17] MEDS: Enoxaparin 40 MG/0.4 ML Syringe SC (10:38)
[2019-12-17] MEDS: guaiFENesin 1,200 MG Tablet 1200 MG PO (10:38)
[2019-12-17] MEDS: Lisinopril 10 MG Tablet PO (10:39)
[2019-12-17] MEDS: Acyclovir 200 MG Capsule 400 MG PO ×2 (10:39→21:11)
[2019-12-17] MEDS: Clopidogrel Bisulfate 300 MG Tablet PO (10:53)
[2019-12-17] MEDS: Ferrous Sulfate 325 MG Tablet PO (10:54)
[2019-12-17 11:18] LABS: Magnesium 1.6 mg/dL (1.6-2.6)
--- NOTE | 2019-12-17 12:15 | PCM.PN.HOSP ---
<Abdirahman Rebolledo - Last Filed: 12/17/19 12:15> Patient Problems: Active and Suspected Problems (Last Reviewed 12/16/19 @ 06:[address] Luis Varghese MD) Bilateral pneumonia (Acute) CHF (congestive heart failure) (Acute) Sepsis (Acute) Reason for Visit: CHF exacerbation Subjective: No CP/pressure/tightness. Improved LE edema. SOB improved, pt weaned off O2. No LH/dizzyness. No Abd pain. No fever/chills. Vitals/I&O's: Vital Signs Temp Pulse Resp BP Pulse Ox 97.8 F 99 15 119/69 95 12/17/19 08:45 12/17/19 08:45 12/17/19 08:45 12/17/19 08:45 12/17/19 08:45 Oxygen Flow Rate (L/min) 93 Oxygen Delivery Method Room Air Weight: 142 lb 10.225 oz Body Mass Index (BMI) 25.7 Intake and Output for Last 24 Hours 12/15/19 12/16/19 12/17/19 23:59 23:59 23:59 Intake Total 1250 / 1250 120 / 120 Output Total 2550 / 2550 250 / 250 Balance -1300 / -1300 -130 / -130 General: Alert, Oriented x3, Cooperative HEENT: Atraumatic, PERRLA, EOMI, Normocephalic Neck: Supple, No JVD, Negative Carotid Bruits Lungs: Diminished, Rales - faint BL bases Cardiovascular: Regular rate, No murmurs Abdomen: Bowel Sounds Present, Soft, Non Tender Extremities: Capillary Refill Less than 3 Seconds, Edema - 1+ pitting edema BLE Skin: No rashes, No breakdown Musculoskeletal: No Tenderness to Palpation of Joints or Extremities Neurological: Cranial nerves II-XII grossly intact Psych/Mental Status: Normal Affect, Appropriate, Alert and oriented to time, place, person, mood and affect Microbiology Past 72 Hours 12/16/19 18:00 Sputum, Expectorated/Coughed Respiratory Culture - Preliminary Appears to be normal respiratory ashwini. Further studies to follow. 12/16/19 22:23 Urine, Clean Catch Streptococcus pneumoniae Antigen (M - Final 12/16/19 22:23 Urine, Clean Catch Legionella Antigen - Final 12/16/19 05:50 Mucosa - Nasopharyngeal Respiratory Panel (PCR) - Final Laboratory Results 12/16/19 17:00: Troponin I 0.049 H 12/16/19 18:17: Troponin I 0.034 12/17/19 05:16: WBC 4.8, RBC 3.19 L, Hgb 9.5 L, Hct 29.8 L, MCV 93.4, MCH 29.8, MCHC 31.9 L, RDW Std Deviation 50.0 H, RDW Coeff of [place]u 14.9 H, Plt Count 152, MPV 9.8, Immature Gran % (Auto) 0.600, Neut % (Auto) 85.3 H, Lymph % (Auto) 7.9 L, [place] % (Auto) 5.6, Eos % (Auto) 0.0, Baso % (Auto) 0.6, Absolute Neuts (auto) 4.1, Absolute Lymphs (auto) 0.38 L, Nucleated RBC % 0, Differential Comment SCANNED 12/17/19 05:16: Sodium 135 L, Potassium 3.2 L, Chloride 103, Carbon Dioxide 26.0, Anion Gap 6, BUN 10, Creatinine 0.61, Estim Creat Clear Calc 38.35, Est GFR (MDRD) Af Amer 121, Est GFR (MDRD) Non-Af 100, BUN/Creatinine Ratio 16.3, Glucose 112 H, Calcium 7.1 L 12/17/19 05:16: Magnesium 1.6 Current Medications Acetaminophen (Tylenol) 650 mg PO Q6H PRN PRN PRN Reason: Pain Score 1-10/Temp > 100.7 F Last Admin: 12/16/19 15:31 Dose: 650 mg Documented by: Acyclovir (Zovirax) 400 mg PO BID [facility] Last Admin: 12/17/19 10:39 Dose: 400 mg Documented by: Al Hydroxide/Mg Hydroxide (Mylanta Ii) 30 ml PO Q6H PRN PRN PRN Reason: Gastric Burning Albuterol Sulfate (Ventolin Aerosols) 2.5 mg INHALATION Q2H PRN PRN PRN Reason: SOB/WHEEZING Aspirin (Aspirin, Baby) 81 mg PO DAILY@0800 [facility] Last Admin: 12/17/19 09:03 Dose: 81 mg Documented by: Calcium Carbonate ([facility]Stephan 500) [facility] Last Admin: 12/17/19 08:56 Dose: 500 mg Documented by: Clopidogrel Bisulfate (Plavix) 75 mg PO DAILY [facility] Dextrose (D50w Syringe) 0 gm IV X1 PRN; Protocol PRN Reason: Hypoglycemia Enoxaparin Sodium (Lovenox) 40 mg SC DAILY [facility] Last Admin: 12/17/19 10:38 Dose: 40 mg Documented by: Ferrous Sulfate (Ferrous Sulfate) 325 mg PO DAILY@1200 [facility] Last Admin: 12/17/19 10:54 Dose: 325 mg Documented by: Furosemide (Lasix) 40 mg IV BID@1000,1800 [facility] Last Admin: 12/17/19 10:38 Dose: 40 mg Documented by: Glucagon () 1 mg IM .X1 PRN PRN Reason: Hypoglycemia Guaifenesin (Mucinex) 1,200 mg PO BID [facility] Last Admin: 12/17/19 10:38 Dose: 1,200 mg Documented by: Lisinopril (Zestril) 10 mg PO DAILY [facility] Last Admin: 12/17/19 10:39 Dose: 10 mg Documented by: Lorazepam (Ativan) 0.5 mg PO DAILY PRN PRN PRN Reason: ANXIETY Melatonin (Melatonin) 3 mg PO QHS PRN PRN PRN Reason: INSOMNIA Multivitamins (Multivitamin) [facility] Last Admin: 12/17/19 08:56 Dose: 1 tablet Documented by: Ondansetron HCl (Zofran) 4 mg IV Q8H PRN PRN PRN Reason: NAUSEA/VOMITING Last Admin: 12/16/19 09:54 Dose: 4 mg Documented by: Potassium Chloride (K-Dur) [facility]q [facility] Last Admin: 12/17/19 08:57 Dose: 40 meq Documented by: Senna/Docusate Sodium (Senokot-S, Crystal-Colace) 2 tablet PO BID PRN PRN PRN Reason: Constipation Sodium Chloride () 10 - 40 ml IV UD PRN PRN Reason: SALINE FLUSH Last Admin: 12/17/19 10:37 Dose: 20 ml Documented by: Trimethoprim/Sulfamethoxazole (Bactrim Ds) 1 tablet PO MoWeFr@0800 [facility] STROKE Vital Signs/Narrative: Vital Signs Temp Pulse Resp BP Pulse Ox 12/17/19 08:45 97.8 F 99 15 119/69 95 Medical Necessity - Tobacco Use Smoking Status: Never smoker Assessment/Plan All Active Problems (Last Reviewed 12/16/19 @ 06:[address] Luis Varghese MD) Bilateral pneumonia (Acute) CHF (congestive heart failure) (Acute) Sepsis (Acute) 1. Acute systolic CHF exacerbation - denies prior episode. Cardiology following. Continue IV lasix. Breathing and Edema improved. CXR with cardiomegaly and BL infiltrates and small effusions. Doubt pna. DC abx. Continue lisinopril -Echo with EF 35-40% stage 1 diastolic dysfunction, moderate global hypokinesis of the left vent, RVSP 34 mmHg -Replace K, Mag. -EKG with possible old infarct -BNP 2265 2. Indeterminate trop - resolved. Cardiology following. heart cath in AM. Continue asa. hold initiation of atorvastatin given recent pancreatitis. 3. Recent GB pancreatitis s/p lap cholecystectomy (12/14/2019). Resolved. lipase 500. no abd pain/nausea/vomiting.Tbili nl, Alk Phos mildly elevated. 4. CLL-continue prophylactic acyclovir and Bactrim. Patient of Dr. Yates 5. Normocytic anemia - trend. platelets intact DVT ppx: lovenox DC planning: cath in AM This patient was seen by Abdirahman Rebolledo PA-C under the supervision of Doctor Renetta. <Mike Jackson - Last Filed: 12/17/19 12:45> Vitals/I&O's: Vital Signs Temp Pulse Resp BP Pulse Ox 36.6 C 99 15 119/69 95 12/17/19 08:45 12/17/19 08:45 12/17/19 08:45 12/17/19 08:45 12/17/19 08:45 Oxygen Flow Rate (L/min) 93 Oxygen Delivery Method Room Air Weight: 64.7 kg Body Mass Index (BMI) 25.7 Intake and Output for Last 24 Hours 12/15/19 12/16/19 12/17/19 23:59 23:59 23:59 Intake Total 1250 / 1250 120 / 120 Output Total 2550 / 2550 250 / 250 Balance -1300 / -1300 -130 / -130 General: Alert, Cooperative HEENT: Atraumatic, Normocephalic Neck: No Nuchal Rigidity Cardiovascular: Regular rate, No murmurs Abdomen: Bowel Sounds Present, Soft, Non Tender Extremities: Capillary Refill Less than 3 Seconds, Edema Skin: No rashes, No breakdown Microbiology Past 72 Hours 12/16/19 18:00 Sputum, Expectorated/Coughed Respiratory Culture - Preliminary Appears to be normal respiratory ashwini. Further studies to follow. 12/16/19 22:23 Urine, Clean Catch Streptococcus pneumoniae Antigen (M - Final 12/16/19 22:23 Urine, Clean Catch Legionella Antigen - Final 12/16/19 05:50 Mucosa - Nasopharyngeal Respiratory Panel (PCR) - Final Laboratory Results 12/16/19 17:00: Troponin I 0.049 H 12/16/19 18:17: Troponin I 0.034 12/17/19 05:16: WBC 4.8, RBC 3.19 L, Hgb 9.5 L, Hct 29.8 L, MCV 93.4, MCH 29.8, MCHC 31.9 L, RDW Std Deviation 50.0 H, RDW Coeff of [place] 14.9 H, Plt Count 152, MPV 9.8, Immature Gran % (Auto) 0.600, Neut % (Auto) 85.3 H, Lymph % (Auto) 7.9 L, [place] % (Auto) 5.6, Eos % (Auto) 0.0, Baso % (Auto) 0.6, Absolute Neuts (auto) 4.1, Absolute Lymphs (auto) 0.38 L, Nucleated RBC % 0, Differential Comment SCANNED 12/17/19 05:16: Sodium 135 L, Potassium 3.2 L, Chloride 103, Carbon Dioxide 26.0, Anion Gap 6, BUN 10, Creatinine 0.61, Estim Creat Clear Calc 38.35, Est GFR (MDRD) Af Amer 121, Est GFR (MDRD) Non-Af 100, BUN/Creatinine Ratio 16.3, Glucose 112 H, Calcium 7.1 L 12/17/19 05:16: Magnesium 1.6 Current Medications Acetaminophen (Tylenol) 650 mg PO Q6H PRN PRN PRN Reason: Pain Score 1-10/Temp > 100.7 F Last Admin: 12/16/19 15:31 Dose: 650 mg Documented by: Acyclovir (Zovirax) 400 mg PO BID [place] Last Admin: 12/17/19 10:39 Dose: 400 mg Documented by: Al Hydroxide/Mg Hydroxide (Mylanta Ii) 30 ml PO Q6H PRN PRN PRN Reason: Gastric Burning Albuterol Sulfate (Ventolin Aerosols) 2.5 mg INHALATION Q2H PRN PRN PRN Reason: SOB/WHEEZING Aspirin (Aspirin, Baby) 81 mg PO DAILY@0800 [facility] Last Admin: 12/17/19 09:03 Dose: 81 mg Documented by: Calcium Carbonate (Os-Stephan 500) [facility] Last Admin: 12/17/19 08:56 Dose: 500 mg Documented by: Clopidogrel Bisulfate (Plavix) 75 mg PO DAILY [facility] Dextrose (D50w Syringe) 0 gm IV X1 PRN; Protocol PRN Reason: Hypoglycemia Enoxaparin Sodium (Lovenox) 40 mg SC DAILY [facility] Last Admin: 12/17/19 10:38 Dose: 40 mg Documented by: Ferrous Sulfate (Ferrous Sulfate) 325 mg PO DAILY@1200 [facility] Last Admin: 12/17/19 10:54 Dose: 325 mg Documented by: Furosemide (Lasix) 40 mg IV BID@1000,1800 [facility] Last Admin: 12/17/19 10:38 Dose: 40 mg Documented by: Glucagon () 1 mg IM .X1 PRN PRN Reason: Hypoglycemia Guaifenesin (Mucinex) 1,200 mg PO BID [facility] Last Admin: 12/17/19 10:38 Dose: 1,200 mg Documented by: Magnesium Sulfate 2 gm/ Sodium (Chloride) 104 mls @ 52 mls/hr IV X1 ONE Stop: 12/17/19 14:59 Lisinopril (Zestril) 10 mg PO DAILY [facility] Last Admin: 12/17/19 10:39 Dose: 10 mg Documented by: Lorazepam (Ativan) 0.5 mg PO DAILY PRN PRN PRN Reason: ANXIETY Melatonin (Melatonin) 3 mg PO QHS PRN PRN PRN Reason: INSOMNIA Multivitamins ([facility]ivitamin) [facility] Last Admin: 12/17/19 08:56 Dose: 1 tablet Documented by: Ondansetron HCl (Zofran) 4 mg IV Q8H PRN PRN PRN Reason: NAUSEA/VOMITING Last Admin: 12/16/19 09:54 Dose: 4 mg Documented by: Potassium Chloride (K-Dur) 40 [facility]q [facility] Last Admin: 12/17/19 08:57 Dose: 40 meq Documented by: Potassium Chloride (K-Dur) 40 meq PO X1 ONE Stop: 12/17/19 12:46 Senna/Docusate Sodium (Senokot-S, Crystal-Colace) 2 tablet PO BID PRN PRN PRN Reason: Constipation Sodium Chloride () 10 - 40 ml IV UD PRN PRN Reason: SALINE FLUSH Last Admin: 12/17/19 10:37 Dose: 20 ml Documented by: Trimethoprim/Sulfamethoxazole (Bactrim Ds) 1 tablet PO MoWeFr@0800 [facility] [facility] Vital Signs/Narrative: Vital Signs Temp Pulse Resp BP Pulse Ox 12/17/19 08:45 36.6 C 99 15 119/69 95 Assessment/Plan Patient seen and examined independently. Data reviewed. I agree with the above note by the physician miller head assistant wet process. 1. Acute heart failure with reduced ejection fraction: EF 35 to 40%. Likely exacerbated due to that the fluid that she received for her recent admission with the acute pancreatitis and cholecystitis. Clinically improving. Continue with IV furosemide. Patient seen by cardiology and plan is for a left heart catheterization on the . Inpatient E&M: [id number] [facility] Hosp L2
[2019-12-17] MEDS: LORazepam 0.5 MG Tablet PO (13:40)
[2019-12-17] MEDS: Albuterol 2.5 MG/3 ML VIAL.NEB. INHALATION ×2 (13:45→19:44)
[2019-12-18] VITALS (11 sets, daily range): BP systolic 102–110; BP diastolic 52–95; PULSE 84–111; RESP 16–18; TEMP 36.6–38.2; O2SAT 96–97
--- NOTE | 2019-12-18 04:53 | EKG12_ITS ---
Test Reason : CP Blood Pressure : / mmHG Vent. Rate : 093 BPM Atrial Rate : 093 BPM P-R Int : 148 ms QRS Dur : 090 ms QT Int : 360 ms P-R-T Axes : 062 -28 034 degrees QTc Int : 447 ms Normal sinus rhythm Nonspecific T wave abnormality Abnormal ECG When compared with ECG of 18-DEC-2019 04:52, MANUAL COMPARISON REQUIRED, DATA IS UNCONFIRMED Confirmed by SUDHA ROSSI ([id number]), film editor MONIQUE IQBAL ([id number]) on 12/21/2019 11:29:01 AM Referred By: KAREN Confirmed By:SUDHA ROSSI
--- NOTE | 2019-12-18 05:32 | PCM.PN.CARD ---
Subjectve: Patient has improved over yesterday with IV diuresis. She is able to lay down further than yesterday, but still has some conversational dyspnea laying down flat after a few minutes. Telemetry shows atrial fibrillation with controlled ventricular response. EKG confirms atrial fibrillation with controlled ventricular response. Objective: Vital Signs Temp Pulse Resp BP Pulse Ox 98.0 F 92 16 104/58 L 96 12/18/19 03:10 12/18/19 03:10 12/18/19 03:10 12/18/19 03:10 12/18/19 03:10 Oxygen Flow Rate (L/min) 2 Oxygen Delivery Method Nasal Cannula Weight: 142 lb 10.225 oz Body Mass Index (BMI) 25.7 Intake and Output for Last 24 Hours 12/16/19 12/17/19 12/18/19 23:59 23:59 23:59 Intake Total 1250 / 1250 1124 / 1124 Output Total 2550 / 2550 4650 / 4650 Balance -1300 / -1300 -3526 / -3526 General: Awake, Alert, Oriented x 3 HEENT: PERRL, EOMI, Sclera Non Icteric Neck: Supple, Good ROM, No Lymph Node Enlargement Lungs: Clear to auscultation Cardiovascular: Irregular Rhythm, Normal S1, Normal S2, No Murmurs, No Rubs, No Gallops Vascular: No Carotid Bruits, Normal Femoral Pulses, Normal Radial Pulses, Normal Dorsalis Pedal Pulse, Normal Posterior Tibial Pulses Abdomen: Bowel Sounds Present, Soft, Non Tender, No HSM, No Organomegaly Extremities: No Cyanosis, No Clubbing, No edema Neurological: No Focal Motor or Sensory Deficit 12/17/19 05:16: WBC 4.8, RBC 3.19 L, Hgb 9.5 L, Hct 29.8 L, MCV 93.4, MCH 29.8, MCHC 31.9 L, Plt Count 152, MPV 9.8, Immature Gran % (Auto) 0.600, Neut % (Auto) 85.3 H, Lymph % (Auto) 7.9 L, [place] % (Auto) 5.6, Eos % (Auto) 0.0, Baso % (Auto) 0.6, Absolute Neuts (auto) 4.1, Nucleated RBC % 0 12/17/19 05:16: Sodium 135 L, Potassium 3.2 L, Chloride 103, Carbon Dioxide 26.0, Anion Gap 6, BUN 10, Creatinine 0.61, Est GFR (MDRD) Af Amer 121, Est GFR (MDRD) Non-Af 100, BUN/Creatinine Ratio 16.3, Glucose 112 H, Calcium 7.1 L 12/17/19 05:16: Magnesium 1.6 Rhythm: EKG: ECHO: Stress Test: Cardiac Cath: PCI: CT Surgery: Holter monitor: EPS: PPM: CXR: Chest CT Scan: Medical Necessity - Tobacco Use Smoking Status: Never smoker Assessment/Plan 1. Congestive heart failure: The patient has newly discovered congestive heart failure with evidence on EKG of old anteroseptal and inferior wall myocardial infarction. We will attempt to get old EKGs from her most recent surgery. Patient complains of progressively worsening dyspnea on exertion as well as midsternal chest pain ever since her surgery. She has never undergone cardiac catheterization. Her echocardiogram from 12/16/2019 is as follows: Mildly dilated left ventricle. The estimated ejection fraction is 35-40 %. Stage 1 diastolic dysfunction. There is moderate global hypokinesis of the left ventricle. The left atrium is mildly enlarged. Trivial mitral valve insufficiency. Trivial tricuspid valve insufficiency. Moderate size left pleural effusion. Right ventricular systolic pressure estimated to be 34 mmHg. There is no comparison study available. At this point I recommend the patient be continued on Lasix IV 40 mg twice daily for least 1 more day, and attempt to slowly diurese her. This appears to be effective. We will discontinue her hydrochlorothiazide. In addition I recommend continuing lisinopril 10 mg p.o. daily for afterload reduction. Once she is reached her dry weight, we would recommend initiating Coreg 3.125 mg p.o. twice daily. Once the patient is able to lay down flat for a period of time, she will require a diagnostic left heart catheterization to assess her coronary anatomy. Recommend baby aspirin 81 mg p.o. daily at this time. In addition I recommend loading her with Plavix 300 mg x 1 now followed by 75 mg p.o. daily in the event the patient may require coronary intervention. Also recommend a 1500 cc fluid restriction. The most current literature states that therapy with rituximab or bendamustine is not significantly associated with an increased occurrence of cardiotoxicity or CHF, but in rare instances it can contribute to congestive heart failure.. 2. Hyperlipidemia: Recommend obtaining a fasting lipid profile. Would recommend holding on antilipid therapy until after her lipase and LFTs have resolved. Patient is status post cholecystectomy recently. 3. Thank you very much for the opportunity to participate in the cardiac care of your patient. Consultation time took place between 845 and 9:30 AM. Inpatient E&M: 09769 Subs Hosp L2
[2019-12-18 05:57] LABS: Absolute Lymphocyte Count 0.51 X10^3/uL (0.83-4.51); Absolute Neutrophil Count 2.8 X10^3/uL (2.0-7.7); Basophil# 0.02 X10^3/uL; Basophil% 0.5 % (0-1); Hematocrit 27.2 % (37-47); Hemoglobin 8.7 g/dL (12.0-15.0); Lymphocyte # 0.51 X10^3/ul (4.0); Lymphocyte % 13.8 % (19-41); Mean Corpuscular Hgb 29.4 pg (27.0-32.0); Mean Corpuscular Volume 91.9 fL (81-99); Mean Platelet Vol. 9.8 fl (6.2-12.0); Monocyte% 8.1 % (0-10); NRBC Flagged by Analyzer 0 % (0-5); Neutrophil # 2.84 X10^3/uL (2.7-7.7); Neutrophil % 76.8 % (47-70); POSITIVE DIFFERENTIAL YES; Platelet Count 141 K/mm3 (150-450); RBC Distribution Width CV 14.7 % (11.6-14.6); RBC Distribution Width SD 49.1 fl (35.1-43.9); Red Blood Count 2.96 M/mm3 (4.2-5.4); White Blood Count 3.7 K/mm3 (4.4-11.0)
[2019-12-18 06:22] LABS: Differential Indicated SCAN CRITERIA MET
[2019-12-18 06:28] LABS: Anion Gap 5 (5-15); BUN 14 mg/dL (7-18); BUN/Creat Ratio 28.5 RATIO (10-20); Calcium,Total 7.1 mg/dL (8.5-10.1); Chloride 103 mmol/L (98-107); Creatinine, Serum 0.49 mg/dL (0.55-1.02); EST Glomerular Filtration Rate 129 mL/min (>60); Est Glom Filt Rate - Afr Amer 157 mL/min (>60); Estimated Creatinine Clearance 38.35 ml/min; Glucose 106 mg/dL (74-106); Magnesium 1.9 mg/dL (1.6-2.6); Potassium 3.7 mmol/L (3.5-5.1); Sodium Level 135 mmol/L (136-145)
[2019-12-18 06:35] LABS: Cholesterol 116 mg/dL (200); High Density Lipoprotein 31 mg/dL; Triglycerides 85 mg/dL; Very Low Density Lipoprotein 17 mg/dL (5-40)
[2019-12-18 06:57] LABS: Differential Comment SCANNED
[2019-12-18] MEDS: Lisinopril 10 MG Tablet PO (09:07)
[2019-12-18] MEDS: Enoxaparin 40 MG/0.4 ML Syringe SC (09:07)
[2019-12-18] MEDS: Clopidogrel Bisulfate 75 MG Tablet PO (09:07)
[2019-12-18] MEDS: Aspirin 81 MG TAB.CHEW PO (09:07)
[2019-12-18] MEDS: Furosemide 40 MG/4 ML Vial IV ×2 (09:07→17:36)
[2019-12-18] MEDS: Smz/Tmp Ds Tablet 1 TABLET PO (09:08)
[2019-12-18] MEDS: Calcium (Elemental) 500 MG Tablet PO (09:15)
[2019-12-18] MEDS: 0.9% Saline Lock 10 ML Syringe IV (10:23)
[2019-12-18] MEDS: Multivitamins,Therapeutic Tablet 1 TABLET PO (11:46)
[2019-12-18] MEDS: Acyclovir 200 MG Capsule 400 MG PO ×2 (11:46→22:12)
--- NOTE | 2019-12-18 13:16 | PCM.PN.HOSP ---
<Abdirahman Rebolledo - Last Filed: 12/18/19 13:40> Patient Problems: Active and Suspected Problems (Last Reviewed 12/16/19 @ 06:[address] Luis Varghese MD) Bilateral pneumonia (Acute) CHF (congestive heart failure) (Acute) Sepsis (Acute) Reason for Visit: SOB Subjective: SOB improved. No CP. LE edema improved. No CP/pressure/palp. No LH/dizziness. Pt not quite ready to lay flat for cath. Vitals/I&O's: Vital Signs Temp Pulse Resp BP Pulse Ox 97.9 F 94 18 110/56 L 97 12/18/19 09:01 12/18/19 09:01 12/18/19 09:01 12/18/19 09:01 12/18/19 09:01 Oxygen Flow Rate (L/min) 2 Oxygen Delivery Method Nasal Cannula Weight: 132 lb 0.91 oz Body Mass Index (BMI) 25.7 Intake and Output for Last 24 Hours 12/16/19 12/17/19 12/18/19 23:59 23:59 23:59 Intake Total 1250 / 1250 1124 / 1124 Output Total 2550 / 2550 4650 / 4650 1325 / 1325 Balance -1300 / -1300 -3526 / -3526 -1325 / -1325 General: Alert, Oriented x3, Cooperative HEENT: Atraumatic, PERRLA, EOMI, Normocephalic Neck: Supple, No JVD, Negative Carotid Bruits Lungs: Clear to auscultation, Normal air movement Cardiovascular: Regular rate, No murmurs Abdomen: Bowel Sounds Present, Soft, Non Tender Extremities: No edema, Capillary Refill Less than 3 Seconds Skin: No rashes, No breakdown Musculoskeletal: No Tenderness to Palpation of Joints or Extremities Neurological: Cranial nerves II-XII grossly intact Psych/Mental Status: Normal Affect, Appropriate, Alert and oriented to time, place, person, mood and affect Microbiology Past 72 Hours 12/16/19 18:00 Sputum, Expectorated/Coughed Gram Stain - Final 12/16/19 18:00 Sputum, Expectorated/Coughed Respiratory Culture - Final Mixed normal respiratory ashwini. No Streptococcus pneumoniae, beta-hemolytic Streptococcus or Staphylococcus aureus isolated. 12/16/19 04:20 Blood Culture (Wb) - Port Blood Culture - Preliminary No growth in 48 hours. 12/16/19 04:05 Blood Culture (Wb) - Port Blood Culture - Preliminary No growth in 48 hours. 12/16/19 22:23 Urine, Clean Catch Streptococcus pneumoniae Antigen (M - Final 12/16/19 22:23 Urine, Clean Catch Legionella Antigen - Final 12/16/19 05:50 Mucosa - Nasopharyngeal Respiratory Panel (PCR) - Final Laboratory Results 12/18/19 05:35: WBC 3.7 L, RBC 2.96 L, Hgb 8.7 L, Hct 27.2 L, MCV 91.9, MCH 29.4, MCHC 32.0, RDW Std Deviation 49.1 H, RDW Coeff of Malu 14.7 H, Plt Count 141 L, MPV 9.8, Immature Gran % (Auto) 0.800, Neut % (Auto) 76.8 H, Lymph % (Auto) 13.8 L, Hughes % (Auto) 8.1, Eos % (Auto) 0.0, Baso % (Auto) 0.5, Absolute Neuts (auto) 2.8, Absolute Lymphs (auto) 0.51 L, Nucleated RBC % 0, Differential Comment SCANNED, Diff Path Review September foll 12/18/19 05:35: Sodium 135 L, Potassium 3.7, Chloride 103, Carbon Dioxide 27.0, Anion Gap 5, BUN 14, Creatinine 0.49 L, Estim Creat Clear Calc 38.35, Est GFR (MDRD) Af Amer 157, Est GFR (MDRD) Non-Af 129, BUN/Creatinine Ratio 28.5 H, Glucose 106, Calcium 7.1 L, Magnesium 1.9 12/18/19 05:35: Triglycerides 85, Cholesterol 116, LDL Cholesterol 68, VLDL Cholesterol 17, HDL Cholesterol 31 L Current Medications Acetaminophen (Tylenol) 650 mg PO Q6H PRN PRN PRN Reason: Pain Score 1-10/Temp > 100.7 F Last Admin: 12/16/19 15:31 Dose: 650 mg Documented by: Acyclovir (Zovirax) 400 mg PO BID [place] Last Admin: 12/18/19 11:46 Dose: 400 mg Documented by: Al Hydroxide/Mg Hydroxide (Mylanta Ii) 30 ml PO Q6H PRN PRN PRN Reason: Gastric Burning Albuterol Sulfate (Ventolin Aerosols) 2.5 mg INHALATION Q2H PRN PRN PRN Reason: SOB/WHEEZING Last Admin: 12/17/19 19:44 Dose: 2.5 mg Documented by: Aspirin (Aspirin, Baby) 81 mg PO DAILY@0800 [facility] Last Admin: 12/18/19 09:07 Dose: 81 mg Documented by: Cal[facility]Stephan 500) [facility] Last Admin: 12/18/19 09:15 Dose: 500 mg Documented by: Clopidogrel Bisulfate (Plavix) 75 mg PO DAILY [facility] Last Admin: 12/18/19 09:07 Dose: 75 mg Documented by: Dextrose (D50w Syringe) 0 gm IV X1 PRN; Protocol PRN Reason: Hypoglycemia Diphenhydramine HCl (Benadryl) 50 mg PO X1 ONE Stop: 12/19/19 08:01 Enoxaparin Sodium (Lovenox) 40 mg SC DAILY [facility] Last Admin: 12/18/19 09:07 Dose: 40 mg Documented by: Ferrous Sulfate (Ferrous Sulfate) 325 mg PO DAILY@1200 [facility] Last Admin: 12/17/19 10:54 Dose: 325 mg Documented by: Furosemide (Lasix) 40 mg IV BID@1000,1800 [facility] Last Admin: 12/18/19 09:07 Dose: 40 mg Documented by: Glucagon () 1 mg IM .X1 PRN PRN Reason: Hypoglycemia Guaifenesin (Robitussin Dm) 10 ml PO Q6H PRN PRN PRN Reason: COUGH Sodium Chloride () 1,000 mls @ 0 mls/hr IV .Q0M [facility] Lisinopril (Zestril) 10 mg PO DAILY [facility] Last Admin: 12/18/19 09:07 Dose: 10 mg Documented by: Lorazepam (Ativan) 0.5 mg PO DAILY PRN PRN PRN Reason: ANXIETY Last Admin: 12/17/19 13:40 Dose: 0.5 mg Documented by: Melatonin (Melatonin) 3 mg PO QHS PRN PRN PRN Reason: INSOMNIA Mult[facility]it[facility]itamin) [facility] Last Admin: 12/18/19 11:46 Dose: 1 tablet Documented by: Ondansetron HCl (Zofran) 4 mg IV Q8H PRN PRN PRN Reason: NAUSEA/VOMITING Last Admin: 12/16/19 09:54 Dose: 4 mg Documented by: Potassium Chloride (K-Dur) 40 meq PO DAILYCM [facility] Last Admin: 12/18/19 11:46 Dose: 40 meq Documented by: Senna/Docusate Sodium (Senokot-S, Crystal-Colace) 2 tablet PO BID PRN PRN PRN Reason: Constipation Sodium Chloride () 10 - 40 ml IV UD PRN PRN Reason: SALINE FLUSH Last Admin: 12/18/19 10:23 Dose: 10 ml Documented by: Trimethoprim/Sulfamethoxazole (Bactrim Ds) 1 tablet PO MoWeFr@0800 [facility] Last Admin: 12/18/19 09:08 Dose: 1 tablet Documented by: Medical Necessity - Tobacco Use Smoking Status: Never smoker Assessment/Plan All Active Problems (Last Reviewed 12/16/19 @ 06:[address] Luis Varghese MD) Bilateral pneumonia (Acute) CHF (congestive heart failure) (Acute) Sepsis (Acute) 1. Acute systolic CHF exacerbation - denies prior episode. Cardiology following. Breathing and Edema improved. CXR with cardiomegaly and BL infiltrates and small effusions. Continue lasix/lisinopril -Echo with EF 35-40% stage 1 diastolic dysfunction, moderate global hypokinesis of the left vent, RVSP 34 mmHg 2. Indeterminate trop - resolved. Cardiology following. heart cath in AM. Continue asa. hold initiation of atorvastatin given recent pancreatitis. 3. Recent GB pancreatitis s/p lap cholecystectomy (12/14/2019). Resolved. lipase 500. no abd pain/nausea/vomiting.Tbili nl, Alk Phos mildly elevated. 4. CLL-continue prophylactic acyclovir and Bactrim. Patient of Dr. Yates 5. Normocytic anemia - trend. platelets intact. continue po iron. check iron/tibc DVT ppx: lovenox. platelets down. hold. SCDs DC planning: cath in AM This patient was seen by Abdirahman Rebolledo PA-C under the supervision of Doctor Celso. <Cuco [place] - Last Filed: 12/18/19 17:17> Reason for Visit: Follow-up for shortness of breath consistent with CHF. Objective: No fever or chills. Blood pressure 110/56. Pulse ox 97% on room air Patient sitting on propped up position. Gets mild short of breath on laying down flat. Physical exam General: Alert, Oriented x3, Cooperative HEENT: Atraumatic, PERRLA, EOMI, Normocephalic Oral: No Gingival or Mucosal Lesions/ Ulcerations Neck: Supple, No JVD, Negative Carotid Bruits Lungs: Air entry diminished in bilateral lung bases. No crepitation/rhonchi Cardiovascular: Regular rate, Regular Rhythm, Normal S1, Normal S2, No murmurs Abdomen: Bowel Sounds Present, Soft, Non Tender, Non-Distended : No renal angle tenderness. No suprapubic tenderness. Extremities: Mild pedal edema, Capillary Refill Less than 3 Seconds Skin: No rashes, No breakdown Musculoskeletal: No Tenderness to Palpation of Joints or Extremities Neurological: Cranial nerves II-XII grossly intact, Deep Tendon Reflexes 2+/4 and Symmetrical, Neuro grossly intact Psych/Mental Status: Normal Affect, Appropriate. Vitals/I&O's: Vital Signs Temp Pulse Resp BP Pulse Ox 98.1 F 93 16 109/60 97 12/18/19 14:05 12/18/19 14:05 12/18/19 14:05 12/18/19 14:05 12/18/19 14:05 Oxygen Flow Rate (L/min) 2 Oxygen Delivery Method Nasal Cannula Weight: 132 lb 0.91 oz Body Mass Index (BMI) 25.7 Intake and Output for Last 24 Hours 12/16/19 12/17/19 12/18/19 23:59 23:59 23:59 Intake Total 1250 / 1250 1124 / 1124 104 / 104 Output Total 2550 / 2550 4650 / 4650 1325 / 1325 Balance -1300 / -1300 -3526 / -3526 -1221 / -1221 Microbiology Past 72 Hours 12/16/19 18:00 Sputum, Expectorated/Coughed Gram Stain - Final 12/16/19 18:00 Sputum, Expectorated/Coughed Respiratory Culture - Final Mixed normal respiratory ashwini. No Streptococcus pneumoniae, beta-hemolytic Streptococcus or Staphylococcus aureus isolated. 12/16/19 04:20 Blood Culture (Wb) - Port Blood Culture - Preliminary No growth in 48 hours. 12/16/19 04:05 Blood Culture (Wb) - Port Blood Culture - Preliminary No growth in 48 hours. 12/16/19 22:23 Urine, Clean Catch Streptococcus pneumoniae Antigen (M - Final 12/16/19 22:23 Urine, Clean Catch Legionella Antigen - Final 12/16/19 05:50 Mucosa - Nasopharyngeal Respiratory Panel (PCR) - Final Laboratory Results 12/18/19 05:35: WBC 3.7 L, RBC 2.96 L, Hgb 8.7 L, Hct 27.2 L, MCV 91.9, MCH 29.4, MCHC 32.0, RDW Std Deviation 49.1 H, RDW Coeff of Malu 14.7 H, Plt Count 141 L, MPV 9.8, Immature Gran % (Auto) 0.800, Neut % (Auto) 76.8 H, Lymph % (Auto) 13.8 L, Hughes % (Auto) 8.1, Eos % (Auto) 0.0, Baso % (Auto) 0.5, Absolute Neuts (auto) 2.8, Absolute Lymphs (auto) 0.51 L, Nucleated RBC % 0, Differential Comment SCANNED, Diff Path Review September12/18/19 05:35: Sodium 135 L, Potassium 3.7, Chloride 103, Carbon Dioxide 27.0, Anion Gap 5, BUN 14, Creatinine 0.49 L, Estim Creat Clear Calc 38.35, Est GFR (MDRD) Af Amer 157, Est GFR (MDRD) Non-Af 129, BUN/Creatinine Ratio 28.5 H, Glucose 106, Calcium 7.1 L, Magnesium 1.9 12/18/19 05:35: Triglycerides 85, Cholesterol 116, LDL Cholesterol 68, VLDL Cholesterol 17, HDL Cholesterol 31 L 12/18/19 05:35: Iron 17 L, TIBC 178 L, Iron Saturation 9.6 L Current Medications Acetaminophen (Tylenol) 650 mg PO Q6H PRN PRN PRN Reason: Pain Score 1-10/Temp > 100.7 F Last Admin: 12/16/19 15:31 Dose: 650 mg Documented by: Acyclovir (Zovirax) 400 mg PO BID [place] Last Admin: 12/18/19 11:46 Dose: 400 mg Documented by: Al Hydroxide/Mg Hydroxide (Mylanta Ii) 30 ml PO Q6H PRN PRN PRN Reason: Gastric Burning Albuterol Sulfate (Ventolin Aerosols) 2.5 mg INHALATION Q2H PRN PRN PRN Reason: SOB/WHEEZING Last Admin: 12/17/19 19:44 Dose: 2.5 mg Documented by: Aspirin (Aspirin, Baby) 81 mg PO DAILY@0800 [facility] Last Admin: 12/18/19 09:07 Dose: 81 mg Documented by: Calcium Carbonate (Os-Stephan 500) [facility] Last Admin: 12/18/19 09:15 Dose: 500 mg Documented by: Clopidogrel Bisulfate (Plavix) 75 mg PO DAILY [facility] Last Admin: 12/18/19 09:07 Dose: 75 mg Documented by: Dextrose (D50w Syringe) 0 gm IV X1 PRN; Protocol PRN Reason: Hypoglycemia Diphenhydramine HCl (Benadryl) 50 mg PO X1 ONE Stop: 12/19/19 08:01 Ferrous Sulfate (Ferrous Sulfate) 325 mg PO DAILY@1200 [facility] Last Admin: 12/18/19 14:08 Dose: 325 mg Documented by: Furosemide (Lasix) 40 mg IV BID@1000,1800 [facility] Last Admin: 12/18/19 09:07 Dose: 40 mg Documented by: Glucagon () 1 mg IM .X1 PRN PRN Reason: Hypoglycemia Guaifenesin (Robitussin Dm) 10 ml PO Q6H PRN PRN PRN Reason: COUGH Sodium Chloride () 1,000 mls @ 0 mls/hr IV .Q0M [facility] Lisinopril (Zestril) 10 mg PO DAILY [facility] Last Admin: 12/18/19 09:07 Dose: 10 mg Documented by: Lorazepam (Ativan) 0.5 mg PO DAILY PRN PRN PRN Reason: ANXIETY Last Admin: 12/18/19 14:08 Dose: 0.5 mg Documented by: Melatonin (Melatonin) 3 mg PO QHS PRN PRN PRN Reason: INSOMNIA Multivitamins ([facility]ivitamin) [facility] Last Admin: 12/18/19 11:46 Dose: 1 tablet Documented by: Ondansetron HCl (Zofran) 4 mg IV Q8H PRN PRN PRN Reason: NAUSEA/VOMITING Last Admin: 12/16/19 09:54 Dose: 4 mg Documented by: Potassium Chloride (K-Dur) [facility] Last Admin: 12/18/19 11:46 Dose: 40 meq Documented by: Senna/Docusate Sodium (Senokot-S, Crystal-Colace) 2 tablet PO BID PRN PRN PRN Reason: Constipation Sodium Chloride () 10 - 40 ml IV UD PRN PRN Reason: SALINE FLUSH Last Admin: 12/18/19 10:23 Dose: 10 ml Documented by: Trimethoprim/Sulfamethoxazole (Bactrim Ds) 1 tablet PO MoWeFr@0800 [place] Last Admin: 12/18/19 09:08 Dose: 1 tablet Documented by: STROKE Vital Signs/Narrative: Vital Signs Temp Pulse Resp BP Pulse Ox 12/18/19 14:05 98.1 F 93 16 109/60 97 Assessment/Plan This patient was seen in conjunction with Abdirahman KNIGHT. I have independently interviewed and examined the patient and reviewed pertinent history, examination findings, laboratory and plan of management. I have reviewed the note and agree with the documented findings with the few additional points. In brief, patient is 79-year-old female admitted with shortness of breath consistent with acute systolic and diastolic CHF exacerbation. 2D echo was done shows EF 35 to 40% with stage I diastolic dysfunction, LA mildly enlarged. Moderate sized left pleural effusion. Construction Specialist is been consulted. Plan for heart cath tomorrow a.m. Patient on CHF core measures, Lasix 40 mg IV twice daily, Coreg 3.125 mg twice daily, aspirin, Plavix after loading dose of Plavix. On fluid restriction Patient has mild increased troponin 0 0.056 and repeat came normal. BNP elevated 2265. She was admitted with twins 12/11-12/15/2019 for gallstone pancreatitis and had lap cholecystectomy. Patient has other comorbidities including CLL and chronic normocytic normochromic anemia most probably secondary to CLL. I have discussed my assessment with Abdirahman KNIGHT and orders have been reviewed. Inpatient E&M: 21526 Subs Hosp L2
[2019-12-18 13:46] LABS: Iron 17 ug/dL (50-170); Iron Binding Capacity,Total 178 ug/dL (250-450); PERCENT IRON SATURATION 9.6 % (15.0-55.0)
[2019-12-18] MEDS: LORazepam 0.5 MG Tablet PO (14:08)
[2019-12-18] MEDS: Ferrous Sulfate 325 MG Tablet PO (14:08)
[2019-12-18] MEDS: Acetaminophen 325 MG Tablet 650 MG PO (20:33)
[2019-12-19] VITALS (37 sets, daily range): BP systolic 110–135; BP diastolic 44–75; PULSE 89–100; RESP 16–26; TEMP 36.4–37.7; O2SAT 92–100
[2019-12-19] MEDS: 0.9% Saline Lock 10 ML Syringe IV ×2 (05:55→07:48)
[2019-12-19 06:45] LABS: Absolute Lymphocyte Count 0.43 X10^3/uL (0.83-4.51); Absolute Neutrophil Count 4.5 X10^3/uL (2.0-7.7); Basophil# 0.04 X10^3/uL; Basophil% 0.8 % (0-1); Differential Indicated SCAN CRITERIA MET; Eosinophil# 0.01 X10^3/uL; Eosinophils% 0.2 % (0-5); Hemoglobin 9.3 g/dL (12.0-15.0); Lymphocyte # 0.43 X10^3/ul (4.0); Lymphocyte % 8.2 % (19-41); Mean Corp Hgb Conc 32.1 g/dL (32-36); Mean Corpuscular Volume 93.5 fL (81-99); Mean Platelet Vol. 10.3 fl (6.2-12.0); Monocyte# 0.23 X10^3/uL; Monocyte% 4.4 % (0-10); NRBC Flagged by Analyzer 0 % (0-5); Neutrophil # 4.49 X10^3/uL (2.7-7.7); Neutrophil % 85.8 % (47-70); POSITIVE DIFFERENTIAL YES; Platelet Count 142 K/mm3 (150-450); RBC Distribution Width CV 14.8 % (11.6-14.6); RBC Distribution Width SD 50.2 fl (35.1-43.9); White Blood Count 5.2 K/mm3 (4.4-11.0)
[2019-12-19] MEDS: Clopidogrel Bisulfate 75 MG Tablet PO (06:47)
[2019-12-19] MEDS: Aspirin 81 MG TAB.CHEW PO (06:47)
[2019-12-19 07:00] LABS: Differential Comment SCANNED
[2019-12-19 07:21] LABS: Anion Gap 4 (5-15); BUN 14 mg/dL (7-18); BUN/Creat Ratio 24.6 RATIO (10-20); Calcium,Total 7.6 mg/dL (8.5-10.1); Chloride 99 mmol/L (98-107); Creatinine, Serum 0.57 mg/dL (0.55-1.02); EST Glomerular Filtration Rate 109 mL/min (>60); Est Glom Filt Rate - Afr Amer 132 mL/min (>60); Estimated Creatinine Clearance 38.35 ml/min; Glucose 97 mg/dL (74-106); Potassium 3.7 mmol/L (3.5-5.1); Sodium Level 132 mmol/L (136-145)
[2019-12-19] MEDS: 0.9% Normal Saline 1,000 ML 15 ML IV (07:46)
[2019-12-19] MEDS: DiphenhydrAMINE 25 MG Capsule 50 MG PO (07:46)
--- NOTE | 2019-12-19 07:56 | NURSING ---
Report called to laborer [facility] house RN
--- NOTE | 2019-12-19 08:50 | NURSING ---
Pt going to ICU post heart cath, report called to Domenic KRAMER
--- NOTE | 2019-12-19 09:00 | EKG12_ITS ---
Test Reason : S\P PCI Blood Pressure : / mmHG Vent. Rate : 092 BPM Atrial Rate : 092 BPM P-R Int : 162 ms QRS Dur : 086 ms QT Int : 362 ms P-R-T Axes : 050 -35 041 degrees QTc Int : 447 ms Normal sinus rhythm Left axis deviation Nonspecific T wave abnormality Abnormal ECG When compared with ECG of 18-DEC-2019 14:19, Nonspecific T wave abnormality has replaced inverted T waves in Anterior leads Confirmed by LOWELL FOX, CHAS ([id number]), department editor JEFF SUAREZ ([id number]) on 12/25/2019 2:10:56 PM Referred By: ANDREW CARMONA Confirmed By:KATE ETIENNE MD
--- NOTE | 2019-12-19 09:02 | CL.I_ITS ---
Patient Name: JOO BROOKS Study Date: 12/19/2019 Performing: Dennis Harper MD Ht: 63 inches 160 cm : 1940 Wt: 125.8 lbs 57 kg Age: 79 Gender: female BSA: 1.59 PROCEDURE(S) PERFORMED [id number]/COR/LV AE41-MWH W OR WO PTCA, SINGLE CORONARY ARTERY CLINICAL PROFILE AND CO-MORBIDITIES Patient presents with NSTEMI for urgent cardiac cath Indications: New Onset Angina <= 2 months, Suspected CAD, LV Dysfunction Heart Failure: NYHA Class: 2, Newly Diagnosed: Yes, Heart Failure Type: Systolic Stress/Imaging Stress/Image Study Performed: No Angina Classification Anginal Classification w/in 2 Weeks: Anginal Equivalent Dyspnea CAD Presentations: Other: Dyspnea, new onset CHF Comorbidities/Risk Factors: Hypertension Dyslipidemia CONCLUSIONS Segmented LV systolic dysfunction- Mild LVEF: by LV gram 45-50 % 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 RECOMMENDATIONS Referred for immediate PCI Highly recommend quitting all tobacco products Follow up with primary first officer Risk factor modification ASA Indefinitley Plavix for at least 12 months Routine post interventional care Refer for Outpatient Cardiac Rehab Manual sheath removal per protocol Manual sheath removal as pt is too thin for closure. Repeat echo after cardiac rehab. DESCRIPTION OF PROCEDURE The patient arrived to the procedure lab. The risks and benefits of the procedure as well as a full d escription of our services here and lack of surgical backup were fully explained to the patient and/o r their significant other prior to the catheterization. The Timeout was completed, verifying the michael ect patient and procedure. The patient's procedural site was prepped and draped in the usual fashion. Local anesthetic was given subcutaneously to right groin region with Lidocaine 2%. Using a modified Seldinger technique, arterial access was obtained via the right femoral artery, a 4Fr sheath was inse rted. Left Coronary Artery selective angiography was performed in multiple views using a 4 Fr. JL5 c atheter. Right Coronary Artery selective angiography was then performed in multiple views using a 4 F r. 3DRC catheter. Left Ventriculography was performed in DUARTE projection using a 4 Fr. Pigtail cathete rThe images were reviewed and options discussed. A decision was then made to proceed with an Intervention, IVUS or other adjunct procedure. Arterial sheath was exchanged for a 6 Fr Sheath. 6F EBU 3.5 Guide catheter was inserted and engag ed into the LCA. BMW Guide wire was advanced to the LAD. Angiogram performed pre balloon dilatation. Emerge 2.0x12 Balloon catheter was advanced across lesion in the LAD, mid. PTCA balloon inflated at 8 atms for 10 secs. PTCA balloon inflated at 8 atms for 10 secs. Synergy 2.5x28 Drug Eluting stent was advanced across the lesion in the LAD, mid. Angiogram performed pre stent deployment. Angiogram perf ormed post stent deployment. NC Emerge 2.5x12 Balloon catheter was inserted post stent. Angiogram per formed. The arterial sheath was sutured in place and capped CORONARY ANGIOGRAPHY DOMINANCE: Right Dominant LEFT HEART ASSESSMENT Left Ventricular Ejection Fraction: by LV Gram 45-50 % Depressed Left Ventricular systolic function LVEDP: 12 mmHg Anterior Hypokinesis - Mild LEFT MAIN: Angiographically normal LEFT ANTERIOR DESCENDING ARTERY: MID LAD: 75 % Stenosis CIRCUMFLEX ARTERY: Non-obstructive RIGHT CORONARY ARTERY: Angiographically normal INTERVENTION INFORMATION LESION SITE: LAD (Mid) Lesion Complexity: High/C, lesion at bifurcation: No, thrombus present: No, lesion length: 28 mm, cul prit lesion: Yes Pre Stenosis: 75 % Pre intervention VANESSA flow: 3 PROCEDURE: Drug Eluting Stent with pre and post dilatation Post Stenosis: 0 % Post intervention VANESSA flow: 3 Lesion Devices: [place] .014 BMW [place] Straight 190cm Medtronic 6 Fr EBU3.5 100cm Guide Catheter Juan Sci EMERGE MR 2.00x12 BALLOON Juan Sci NC EMERGE MR 2.50x12 BALLOON Juan Sci Synergy MR LINDA 2.50x28 COMPLICATIONS No Complications PROCEDURE MEDICATIONS Versed 1 mg IV Oxygen: 2 L/min via nasal cannula Heparin 6000 unit(s) IV 12/19/2019 08:28:59 Heparin 4000 unit(s) IV 12/19/2019 08:55:36 Nitro 200 mcg IC 12/19/2019 08:36:56 Nitro 200 mcg IC 12/19/2019 08:36:56 Nitro 200 mcg IC 12/19/2019 08:39:21 IV Bolus: .9 NaCl 300 cc total given during case ml total 12/19/2019 08:56:26 IV Fluids: .9 NaCl increased to wide open ml/hr 12/19/2019 08:33:48 SUMMARY OF HEMODYNAMIC DATA Time AIR REST ECG 08:05:14 AO 103/52 (74) SA 08:18:59 LV 117/-10, 16 08:24:46 LVp 124/-12, 15 08:24:52 AOp 118/54 (82) 08:24:57 Signed By Dennis Harper MD On 12/19/2019 13:03:52 Dennis Harper MD
[2019-12-19 09:16] LABS: ACT Activated Clotting Time 114 sec (74-137)
[2019-12-19 09:20] LABS: ACT Activated Clotting Time 131 sec (74-137)
[2019-12-19] MEDS: 0.9% Normal Saline 1,000 ML 150 ML IV (09:30)
--- NOTE | 2019-12-19 10:04 | NURSING ---
Notified pt's son Ed per pt request of admission to ICU following heart cath with stent placement. Aware no visitors while in ICU. Given ICU nurse's station phone number to call for updates if he would like.
--- NOTE | 2019-12-19 11:12 | CRPHASE1_ITS ---
Patient Communication PHII Cardiac Rehab Discussed with Patient:: Yes Guide to Cardiac Rehab Given to Patient:: Yes - Placed on bedside table Cardiac Rehab Facility Choice List Given to Patient:: Yes Choice Program [facility] CR PHII:: Communication Given to CR, Refer to [facility] Fabric Inspector:: Dennis Harper Phase II Cardiac Rehab:: Yes Sessions:: 36 sessions - 3 days/wk, 12 weeks Risk Factors/Lifestyle Family History: Family History (Last Reviewed 12/16/19 @ 06:[address] Luis Varghese MD) Father Lung cancer Mother CVA (cerebral vascular accident) Son Waldenstrom's disease Laboratory Values: Cardiac Rehab Phase I Labs Triglycerides 85 mg/dL (-199) 12/18/19 05:35 Cholesterol 116 mg/dL (200) 12/18/19 05:35 LDL Cholesterol 68 mg/dL (0-130) 12/18/19 05:35 HDL Cholesterol 31 mg/dL (40-) L 12/18/19 05:35 Cardiac Rehabilitation Info Cardiac Rehabilitation Program Information: Cardiac Rehabilitation is important for patients like you who are recovering from a heart problem. Cardiac rehabilitation programs are recognized as integral to the continued care of the patient with coronary heart disease. The cardiac rehabilitation program is designed to optimize a patient's physical, psychological, and social functioning. Health childcare administrator work in cardiac rehabilitation programs and assist you with getting the treatments you need to get stronger and healthier - like exercise, healthy eating habits, and medications. Cardiac rehabilitation has been show to help people with heart problems live longer and have better life enjoyment than people who do not go to cardiac rehabilitation. Please contact the Cardiac Rehabilitation Program at [facility] at in two weeks if you have not heard from them.
--- NOTE | 2019-12-19 11:13 | CRPH1.INSTRU ---
General Education CAD and cardiac anatomy and function:: Patient communicates acknowledgment Explanation of diagnoses and procedures:: Patient communicates acknowledgment Sign/Symptoms of VT:: Patient communicates acknowledgment Antiplatelet therapy: Patient communicates acknowledgment Proper use of NTG-SL: Patient communicates acknowledgment Emergency procedures and activation of EMS: Patient communicates acknowledgment Compliance of all prescribed medications: Patient communicates acknowledgment Dyslipidemia Patient Dyslipidemia Risk Factors Are:: Total Cholesterol - 116, Triglycerides - 116, HDL - 31, LDL - 68 Recommendations Include:: Lipid profile provided, Reviewed NCEP/ATP guidelines, Therapeutic Lifestyle Change dietary guidelines Dyslipidemia Response Code:: Patient communicates acknowledgment Hypertension Recommendations Include:: Maintain BP <130/85, DASH dietary guidelines Hypertension:: Patient communicates acknowledgment Heart Disease Recommendations Include:: Educated family members of their risk Heart Disease Response Code:: Patient communicates acknowledgment Sedentary Patient Sedentary Risk Factors Are:: Lack of regular exercise Recommendations Include:: Aerobic exercise 5-7 times/week for 20-30 minutes continuously, Benefits of regular exercise, Discussed home walking program, Monitored Outpatient Cardiac Rehab Sedentary Response Code:: Patient communicates acknowledgment
[2019-12-19 11:41] LABS: ACT Activated Clotting Time 136 sec (74-137)
[2019-12-19 12:13] LABS: Pathologist Review Reviewed
[2019-12-19] MEDS: LORazepam 1 MG Tablet PO (13:17)
--- NOTE | 2019-12-19 13:18 | PCM.PN.HOSP ---
<KeshaAbdirahman - Last Filed: 12/19/19 13:18> Patient Problems: Active and Suspected Problems (Last Updated 12/19/19 @ 09:34 by Sarah Baker) Bilateral pneumonia (Acute) CHF (congestive heart failure) (Acute) Sepsis (Acute) Reason for Visit: SOB Subjective: Pt lying flat off o2 with no SOB. Pt is post stent to the LAD today. No CP. No N/V. Vitals/I&O's: Vital Signs Temp Pulse Resp BP Pulse Ox 97.6 F L 94 23 H 124/66 H 94 12/19/19 13:00 12/19/19 13:00 12/19/19 13:00 12/19/19 13:00 12/19/19 13:00 Oxygen Flow Rate (L/min) 1 Oxygen Delivery Method Room Air Weight: 125 lb 14.143 oz Body Mass Index (BMI) 25.7 Intake and Output for Last 24 Hours 12/17/19 12/18/19 12/19/19 23:59 23:59 23:59 Intake Total 1124 / 1124 104 / 224 120 / 120 Output Total 4650 / 4650 2225 / 3175 1500 / 1500 Balance -3526 / -3526 -2121 / -2951 -1380 / -1380 General: Alert, Oriented x3, Cooperative HEENT: Atraumatic, PERRLA, EOMI, Normocephalic Neck: Supple, No JVD, Negative Carotid Bruits Lungs: Clear to auscultation, Normal air movement Cardiovascular: Regular rate, No murmurs Abdomen: Bowel Sounds Present, Soft, Non Tender Extremities: No edema, Capillary Refill Less than 3 Seconds Skin: No rashes, No breakdown Musculoskeletal: No Tenderness to Palpation of Joints or Extremities Neurological: Cranial nerves II-XII grossly intact Psych/Mental Status: Normal Affect, Appropriate, Alert and oriented to time, place, person, mood and affect Microbiology Past 72 Hours 12/16/19 18:00 Sputum, Expectorated/Coughed Gram Stain - Final 12/16/19 18:00 Sputum, Expectorated/Coughed Respiratory Culture - Final Mixed normal respiratory ashwini. No Streptococcus pneumoniae, beta-hemolytic Streptococcus or Staphylococcus aureus isolated. 12/16/19 04:20 Blood Culture (Wb) - Port Blood Culture - Preliminary No growth in 48 hours. 12/16/19 04:05 Blood Culture (Wb) - Port Blood Culture - Preliminary No growth in 48 hours. 12/16/19 22:23 Urine, Clean Catch Streptococcus pneumoniae Antigen (M - Final 12/16/19 22:23 Urine, Clean Catch Legionella Antigen - Final Laboratory Results 12/18/19 05:35: Diff Path Review Reviewed 12/18/19 05:35: Iron 17 L, TIBC 178 L, Iron Saturation 9.6 L 12/19/19 06:18: WBC 5.2, RBC 3.10 L, Hgb 9.3 L, Hct 29.0 L, MCV 93.5, MCH 30.0, MCHC 32.1, RDW Std Deviation 50.2 H, RDW Coeff of Malu 14.8 H, Plt Count 142 L, MPV 10.3, Immature Gran % (Auto) 0.600, Neut % (Auto) 85.8 H, Lymph % (Auto) 8.2 L, [place] % (Auto) 4.4, Eos % (Auto) 0.2, Baso % (Auto) 0.8, Absolute Neuts (auto) 4.5, Absolute Lymphs (auto) 0.43 L, Nucleated RBC % 0, Differential Comment SCANNED 12/19/19 06:18: Sodium 132 L, Potassium 3.7, Chloride 99, Carbon Dioxide 29.0, Anion Gap 4 L, BUN 14, Creatinine 0.57, Estim Creat Clear Calc 38.35, Est GFR (MDRD) Af Amer 132, Est GFR (MDRD) Non-Af 109, BUN/Creatinine Ratio 24.6 H, Glucose 97, Calcium 7.6 L 12/19/19 08:48: Activated Clotting Time 114 12/19/19 08:53: Activated Clotting Time 131 12/19/19 11:24: Activated Clotting Time 136 Current Medications Acetaminophen (Tylenol) 650 mg PO Q6H PRN PRN PRN Reason: Pain Score 1-10/Temp > 100.7 F Last Admin: 12/18/19 20:33 Dose: 650 mg Documented by: Acetaminophen (Tylenol) 650 mg PO Q6H PRN PRN PRN Reason: Pain Score 1-3/10 Acyclovir (Zovirax) 400 mg PO BID [place] Last Admin: 12/18/19 22:12 Dose: 400 mg Documented by: Al Hydroxide/Mg Hydroxide (Mylanta Ii) 30 ml PO Q6H PRN PRN PRN Reason: Gastric Burning Albuterol Sulfate (Ventolin Aerosols) 2.5 mg INHALATION Q2H PRN PRN PRN Reason: SOB/WHEEZING Last Admin: 12/17/19 19:44 Dose: 2.5 mg Documented by: Aspirin (Aspirin, Baby) 81 mg PO DAILY@0800 [facility] Last Admin: 12/19/19 06:47 Dose: 81 mg Documented by: Atropine Sulfate () 0.5 mg IV UD PRN PRN Reason: HR <50 bpm Calcium Carbonate (Os-Stephan 500) 500 mg PO DAILYCM [facility] Last Admin: 12/18/19 09:15 Dose: 500 mg Documented by: Clopidogrel Bisulfate (Plavix) 75 mg PO DAILY [facility] Last Admin: 12/19/19 06:47 Dose: 75 mg Documented by: Clopidogrel Bisulfate (Plavix) 75 mg PO DAILY [facility] Dextrose (D50w Syringe) 0 gm IV X1 PRN; Protocol PRN Reason: Hypoglycemia Ferrous Sulfate (Ferrous Sulfate) 325 mg PO DAILY@1200 [facility] Last Admin: 12/18/19 14:08 Dose: 325 mg Documented by: Furosemide (Lasix) 40 mg PO DAILY [facility] Glucagon () 1 mg IM .X1 PRN PRN Reason: Hypoglycemia Guaifenesin (Robitussin Dm) 10 ml PO Q6H PRN PRN PRN Reason: COUGH Heparin Sodium (Beef Lung) (Heparin 500 Unit/5 Ml (100/Ml)) 500 unit IV UD PRN PRN Reason: HEPARIN FLUSH Sodium Chloride () 1,000 mls @ 0 mls/hr IV .Q0M [facility] Last Admin: 12/19/19 07:46 Dose: 15 mls/hr Documented by: Sodium Chloride () 1,000 mls @ 150 mls/hr IV .Q6H40M [facility] Stop: 12/19/19 15:29 Last Admin: 12/19/19 09:30 Dose: 150 mls/hr Documented by: Labetalol HCl (Trandate) 5 mg IV X1 PRN PRN Reason: SBP > 160 when pulling sheath Stop: 12/21/19 08:49 Lisinopril (Zestril) 10 mg PO DAILY [facility] Last Admin: 12/18/19 09:07 Dose: 10 mg Documented by: Lorazepam (Ativan) 0.5 mg PO DAILY PRN PRN PRN Reason: ANXIETY Last Admin: 12/18/19 14:08 Dose: 0.5 mg Documented by: Lorazepam (Ativan) 1 mg PO Q6H PRN PRN PRN Reason: BACK SPASMS/ANXIETY Melatonin (Melatonin) 3 mg PO QHS PRN PRN PRN Reason: INSOMNIA Metoclopramide HCl (Reglan) 5 mg IV Q6H PRN PRN PRN Reason: NAUSEA/VOMITING Morphine Sulfate () 2 - 4 mg IV Q4H PRN PRN PRN Reason: Pain Score 1-10/10 [facility]) [facility] Last Admin: 12/18/19 11:46 Dose: 1 tablet Documented by: Nitroglycerin (Nitrostat) 0.4 mg SUBLINGUAL Q5M PRN PRN Reason: CARDIAC/CHEST PAIN Ondansetron HCl (Zofran) 4 mg IV Q8H PRN PRN PRN Reason: NAUSEA/VOMITING Last Admin: 12/16/19 09:54 Dose: 4 mg Documented by: Potassium Chloride (K-Dur) [facility] Last Admin: 12/18/19 11:46 Dose: 40 meq Documented by: Senna/Docusate Sodium (Senokot-S, Crystal-Colace) 2 tablet PO BID PRN PRN PRN Reason: Constipation Sodium Chloride () 10 - 40 ml IV UD PRN PRN Reason: SALINE FLUSH Last Admin: 12/19/19 07:48 Dose: 10 ml Documented by: Sodium Chloride () 500 ml IV BOLUS PRN PRN Reason: VASO-VAGAL PROTOCOL Trimethoprim/Sulfamethoxazole (Bactrim Ds) 1 tablet PO MoWeFr@0800 [facility] Last Admin: 12/18/19 09:08 Dose: 1 tablet Documented by: STROKE Vital Signs/Narrative: Vital Signs Temp Pulse Resp BP Pulse Ox 12/19/19 13:00 97.6 F L 94 23 H 124/66 H 94 12/19/19 12:45 90 18 120/69 93 12/19/19 12:30 95 22 H 125/63 H 94 12/19/19 12:15 92 20 H 120/67 94 12/19/19 12:05 93 124/72 H 12/19/19 12:00 99.0 F 94 18 123/66 H 94 12/19/19 11:55 93 122/68 H 12/19/19 11:50 94 121/69 H 12/19/19 11:45 94 23 H 94 12/19/19 11:30 90 18 123/65 H 95 12/19/19 11:15 90 18 94 12/19/19 11:00 89 19 H 120/65 95 12/19/19 10:45 90 18 94 12/19/19 10:30 90 17 116/69 94 12/19/19 10:15 92 20 H 115/70 96 12/19/19 10:00 89 20 H 115/64 99 12/19/19 09:45 89 18 118/60 98 12/19/19 09:30 91 16 120/70 97 12/19/19 09:20 98.8 F 90 18 121/69 H 100 Medical Necessity - Tobacco Use Smoking Status: Never smoker Assessment/Plan All Active Problems (Last Updated 12/19/19 @ 09:34 by Sarah Baker) Bilateral pneumonia (Acute) CHF (congestive heart failure) (Acute) Sepsis (Acute) 1. Acute systolic CHF exacerbation - Resolving. Lying flat no o2 with no sob. Continue lasix/lisinopril -Echo with EF 35-40% stage 1 diastolic dysfunction, moderate global hypokinesis of the left vent, RVSP 34 mmHg 2. CAD - s/p stent to LAD today. Continue meds as per cardiology. 3. Recent GB pancreatitis s/p lap cholecystectomy (12/14/2019). Resolved. lipase 500. no abd pain/nausea/vomiting.Tbili nl, Alk Phos mildly elevated. 4. CLL-continue prophylactic acyclovir and Bactrim. Patient of Dr. Yates 5. Anemia with iron deficiency - venofer x1, ferrex qd, check hemoccult. DVT ppx: SCDs. DC planning: monitor overnight post stent. This patient was seen by Abdirahman Rebolledo PA-C under the supervision of Doctor Celso. <Cuco Houston - Last Filed: 12/19/19 16:11> Subjective: Patient had cardiac cath in the morning and was found single-vessel mid LAD lesion. Had successful PTCA/LINDA to mid LAD. Patient is transferred to ICU post PCI Blood pressure and heart rate within normal limit. No hypoxia. Physical exam General: Alert, Oriented x3, Cooperative HEENT: Atraumatic, PERRLA, EOMI, Normocephalic Oral: No Gingival or Mucosal Lesions/ Ulcerations Neck: Supple, No JVD, Negative Carotid Bruits Lungs: Air entry diminished in bilateral lung bases. No crepitation/rhonchi Cardiovascular: Regular rate, Regular Rhythm, Normal S1, Normal S2, No murmurs. Right femoral artery sheath present. Abdomen: Bowel Sounds Present, Soft, Non Tender, Non-Distended : No renal angle tenderness. No suprapubic tenderness. Extremities: Mild pedal edema, Capillary Refill Less than 3 Seconds Skin: No rashes, No breakdown Musculoskeletal: No Tenderness to Palpation of Joints or Extremities Neurological: Cranial nerves II-XII grossly intact, Deep Tendon Reflexes 2+/4 and Symmetrical, Neuro grossly intact Psych/Mental Status: Normal Affect, Appropriate. Vitals/I&O's: Vital Signs Temp Pulse Resp BP Pulse Ox 97.6 F L 98 16 126/44 H 96 12/19/19 13:00 12/19/19 15:30 12/19/19 15:30 12/19/19 15:30 12/19/19 15:30 Oxygen Flow Rate (L/min) 1 Oxygen Delivery Method Room Air Weight: 125 lb 14.143 oz Body Mass Index (BMI) 25.7 Intake and Output for Last 24 Hours 12/17/19 12/18/19 12/19/19 23:59 23:59 23:59 Intake Total 1124 / 1124 104 / 224 120 / 120 Output Total 4650 / 4650 2225 / 3175 1500 / 1500 Balance -3526 / -3526 -2121 / -2951 -1380 / -1380 Microbiology Past 72 Hours 12/16/19 18:00 Sputum, Expectorated/Coughed Gram Stain - Final 12/16/19 18:00 Sputum, Expectorated/Coughed Respiratory Culture - Final Mixed normal respiratory ashwini. No Streptococcus pneumoniae, beta-hemolytic Streptococcus or Staphylococcus aureus isolated. 12/16/19 04:20 Blood Culture (Wb) - Port Blood Culture - Preliminary No growth in 48 hours. 12/16/19 04:05 Blood Culture (Wb) - Port Blood Culture - Preliminary No growth in 48 hours. 12/16/19 22:23 Urine, Clean Catch Streptococcus pneumoniae Antigen (M - Final 12/16/19 22:23 Urine, Clean Catch Legionella Antigen - Final Laboratory Results 12/18/19 05:35: Diff Path Review Reviewed 12/19/19 06:18: WBC 5.2, RBC 3.10 L, Hgb 9.3 L, Hct 29.0 L, MCV 93.5, MCH 30.0, MCHC 32.1, RDW Std Deviation 50.2 H, RDW Coeff of Malu 14.8 H, Plt Count 142 L, MPV 10.3, Immature Gran % (Auto) 0.600, Neut % (Auto) 85.8 H, Lymph % (Auto) 8.2 L, [place] % (Auto) 4.4, Eos % (Auto) 0.2, Baso % (Auto) 0.8, Absolute Neuts (auto) 4.5, Absolute Lymphs (auto) 0.43 L, Nucleated RBC % 0, Differential Comment SCANNED 12/19/19 06:18: Sodium 132 L, Potassium 3.7, Chloride 99, Carbon Dioxide 29.0, Anion Gap 4 L, BUN 14, Creatinine 0.57, Estim Creat Clear Calc 38.35, Est GFR (MDRD) Af Amer 132, Est GFR (MDRD) Non-Af 109, BUN/Creatinine Ratio 24.6 H, Glucose 97, Calcium 7.6 L 12/19/19 08:48: Activated Clotting Time 114 12/19/19 08:53: Activated Clotting Time 131 12/19/19 11:24: Activated Clotting Time 136 Current Medications Acetaminophen (Tylenol) 650 mg PO Q6H PRN PRN PRN Reason: Pain Score 1-10/Temp > 100.7 F Last Admin: 12/18/19 20:33 Dose: 650 mg Documented by: Acetaminophen (Tylenol) 650 mg PO Q6H PRN PRN PRN Reason: Pain Score 1-3/10 Acyclovir (Zovirax) 400 mg PO BID [place] Last Admin: 12/18/19 22:12 Dose: 400 mg Documented by: Al Hydroxide/Mg Hydroxide (Mylanta Ii) 30 ml PO Q6H PRN PRN PRN Reason: Gastric Burning Albuterol Sulfate (Ventolin Aerosols) 2.5 mg INHALATION Q2H PRN PRN PRN Reason: SOB/WHEEZING Last Admin: 12/17/19 19:44 Dose: 2.5 mg Documented by: Aspirin (Aspirin, Baby) 81 mg PO DAILY@0800 [facility] Last Admin: 12/19/19 06:47 Dose: 81 mg Documented by: Atropine Sulfate () 0.5 mg IV UD PRN PRN Reason: HR <50 bpm Calcium Carbonate (Os-Stephan 500) 500 mg PO DAILYCM [facility] Last Admin: 12/18/19 09:15 Dose: 500 mg Documented by: Clopidogrel Bisulfate (Plavix) 75 mg PO DAILY [facility] Last Admin: 12/19/19 06:47 Dose: 75 mg Documented by: Clopidogrel Bisulfate (Plavix) 75 mg PO DAILY [facility] Dextrose (D50w Syringe) 0 gm IV X1 PRN; Protocol PRN Reason: Hypoglycemia Ferrous Sulfate (Ferrous Sulfate) 325 mg PO DAILY@1200 [facility] Last Admin: 12/18/19 14:08 Dose: 325 mg Documented by: Furosemide (Lasix) 40 mg PO DAILY [facility] Glucagon () 1 mg IM .X1 PRN PRN Reason: Hypoglycemia Guaifenesin (Robitussin Dm) 10 ml PO Q6H PRN PRN PRN Reason: COUGH Heparin Sodium (Beef Lung) (Heparin 500 Unit/5 Ml (100/Ml)) 500 unit IV UD PRN PRN Reason: HEPARIN FLUSH Sodium Chloride () 1,000 mls @ 0 mls/hr IV .Q0M [facility] Last Admin: 12/19/19 07:46 Dose: 15 mls/hr Documented by: Labetalol HCl (Trandate) 5 mg IV X1 PRN PRN Reason: SBP > 160 when pulling sheath Stop: 12/21/19 08:49 Lisinopril (Zestril) 10 mg PO DAILY [facility] Last Admin: 12/18/19 09:07 Dose: 10 mg Documented by: Lorazepam (Ativan) 0.5 mg PO DAILY PRN PRN PRN Reason: ANXIETY Last Admin: 12/18/19 14:08 Dose: 0.5 mg Documented by: Lorazepam (Ativan) 1 mg PO Q6H PRN PRN PRN Reason: BACK SPASMS/ANXIETY Last Admin: 12/19/19 13:17 Dose: 1 mg Documented by: Melatonin (Melatonin) 3 mg PO QHS PRN PRN PRN Reason: INSOMNIA Metoclopramide HCl (Reglan) 5 mg IV Q6H PRN PRN PRN Reason: NAUSEA/VOMITING Morphine Sulfate () 2 - 4 mg IV Q4H PRN PRN PRN Reason: Pain Score 1-10/10 [facility] ([facility]) [facility] Last Admin: 12/18/19 11:46 Dose: 1 tablet Documented by: Nitroglycerin (Nitrostat) 0.4 mg SUBLINGUAL Q5M PRN PRN Reason: CARDIAC/CHEST PAIN Ondansetron HCl (Zofran) 4 mg IV Q8H PRN PRN PRN Reason: NAUSEA/VOMITING Last Admin: 12/16/19 09:54 Dose: 4 mg Documented by: Potassium Chloride (K-Dur) [facility] Last Admin: 12/18/19 11:46 Dose: 40 meq Documented by: Senna/Docusate Sodium (Senokot-S, Crystal-Colace) 2 tablet PO BID PRN PRN PRN Reason: Constipation Sodium Chloride () 10 - 40 ml IV UD PRN PRN Reason: SALINE FLUSH Last Admin: 12/19/19 07:48 Dose: 10 ml Documented by: Sodium Chloride () 500 ml IV BOLUS PRN PRN Reason: VASO-VAGAL PROTOCOL Trimethoprim/Sulfamethoxazole (Bactrim Ds) 1 tablet PO MoWeFr@0800 [facility] Last Admin: 12/18/19 09:08 Dose: 1 tablet Documented by: STROKE Vital Signs/Narrative: Vital Signs Temp Pulse Resp BP Pulse Ox 12/19/19 15:30 98 16 126/44 H 96 12/19/19 15:00 94 18 123/68 H 94 12/19/19 14:30 94 19 H 135/73 H 94 12/19/19 14:00 92 21 H 123/68 H 93 12/19/19 13:45 95 26 H 126/73 H 93 12/19/19 13:30 92 21 H 124/65 H 92 12/19/19 13:15 93 22 H 124/75 H 94 12/19/19 13:00 97.6 F L 94 23 H 124/66 H 94 12/19/19 12:45 90 18 120/69 93 12/19/19 12:30 95 22 H 125/63 H 94 12/19/19 12:15 92 20 H 120/67 94 Assessment/Plan This patient was seen in conjunction with Abdirahman KNIGHT. I have independently interviewed and examined the patient and reviewed pertinent history, examination findings, laboratory and plan of management. I have reviewed the note and agree with the documented findings with the few additional points. In brief, patient is 79-year-old female admitted with shortness of breath consistent with acute systolic and diastolic CHF exacerbation. 2D echo was done shows EF 35 to 40% with stage I diastolic dysfunction, LA mildly enlarged. Moderate sized left pleural effusion. Senior Procurement Specialist is been consulted. Patient on CHF core measures, Lasix 40 mg IV twice daily, Coreg 3.125 mg twice daily, aspirin, Plavix after loading dose of Plavix. On fluid restriction Patient has mild increased troponin 0 0.056 and repeat came normal. BNP elevated 2265. Patient is found single vessel mid LAD coronary artery disease. Had PCI with LINDA. Right femoral artery sheath removed as per protocol. Sepsis and pneumonia ruled out. She was admitted with between 12/11-12/15/2019 for gallstone pancreatitis and had lap cholecystectomy. Patient has other comorbidities including CLL and chronic normocytic normochromic anemia most probably secondary to CLL. I have discussed my assessment with Abdirahman KNIGHT and orders have been reviewed. Inpatient E&M: 63081 Subs Hosp L2
--- NOTE | 2019-12-19 13:26 | NURSING ---
pt turned and placed on bedpan and voided 50cc. pt c/o back pain and ativan po given. pt with numerous c/o while assessing. no cp but c/o rt arm tingling, being hungry and wanting to sit up more.
--- NOTE | 2019-12-19 14:18 | CASEMGMT ---
JEMMA noticed a Palliative Care referral was made for patient last week. JEMMA called Palliative Care and spoke with Catrina. She said they have left patient 2 voice mails. SW let her know patient was discharged on Wednesday, but then came back in on Wednesday so that is probably why they cannot reach her. SW told her SW will let them know when she is discharged so they can try and get in touch with her. Zunilda AMADOR MSW
[2019-12-19] MEDS: Furosemide 40 MG Tablet PO (16:15)
[2019-12-19] MEDS: Calcium (Elemental) 500 MG Tablet PO (16:15)
[2019-12-19] MEDS: Multivitamins,Therapeutic Tablet 1 TABLET PO (16:15)
[2019-12-19] MEDS: Ferrous Sulfate 325 MG Tablet PO (16:18)
[2019-12-19] MEDS: Acyclovir 200 MG Capsule 400 MG PO ×2 (16:18→22:01)
[2019-12-20 03:00] VITALS: PULSE 95
[2019-12-20 03:30] VITALS: BP 126/70; PULSE 92; RESP 18; TEMP 36.6; O2SAT 94
--- NOTE | 2019-12-20 05:55 | EKG12_ITS ---
Test Reason : AM EKG Blood Pressure : / mmHG Vent. Rate : 088 BPM Atrial Rate : 088 BPM P-R Int : 164 ms QRS Dur : 080 ms QT Int : 364 ms P-R-T Axes : 044 -40 022 degrees QTc Int : 440 ms Normal sinus rhythm Left axis deviation Septal infarct , age undetermined Inferior infarct , age undetermined Abnormal ECG When compared with ECG of 18-DEC-2019 14:19, MANUAL COMPARISON REQUIRED, DATA IS UNCONFIRMED Confirmed by SUDHA ROSSI ([id number]), commissioning editor MONIQUE IQBAL ([id number] on 12/21/2019 11:33:53 AM Referred By: KAREN Confirmed By:SUDHA ROSSI
[2019-12-20 06:16] LABS: Hematocrit 26.7 % (37-47); Hemoglobin 8.4 g/dL (12.0-15.0); Mean Corp Hgb Conc 31.5 g/dL (32-36); Mean Corpuscular Hgb 29.2 pg (27.0-32.0); Mean Corpuscular Volume 92.7 fL (81-99); Platelet Count 127 K/mm3 (150-450); RBC Distribution Width CV 14.7 % (11.6-14.6); RBC Distribution Width SD 50.3 fl (35.1-43.9); Red Blood Count 2.88 M/mm3 (4.2-5.4); White Blood Count 2.9 K/mm3 (4.4-11.0)
[2019-12-20 06:34] LABS: ALB/GLOB Ratio 0.9 RATIO (0.9-2.4); AST(SGOT) 8 U/L (15-37); Alanine Aminotransfer ALT/SGPT 13 U/L (13-56); Albumin, Serum 2.2 g/dL (3.2-5.0); Alkaline Phosphatase 80 U/L (45-117); Anion Gap 5 (5-15); BUN 15 mg/dL (7-18); BUN/Creat Ratio 33.7 RATIO (10-20); Calcium,Total 7.7 mg/dL (8.5-10.1); Chloride 104 mmol/L (98-107); Creatinine, Serum 0.44 mg/dL (0.55-1.02); EST Glomerular Filtration Rate 145 mL/min (>60); Est Glom Filt Rate - Afr Amer 175 mL/min (>60); Estimated Creatinine Clearance 38.35 ml/min; Globulin 2.5 g/dL (2.2-4.2); Glucose 84 mg/dL (74-106); Protein, Total 4.7 g/dL (6.4-8.2); Sodium Level 135 mmol/L (136-145)
[2019-12-20 07:12] VITALS: PULSE 87
[2019-12-20 07:50] VITALS: O2SAT 94
--- NOTE | 2019-12-20 08:22 | PN.CARD_ITS ---
Subjectve: Patient seen and examined, doing quite well. She feels much better after her angioplasty, and her breathing has markedly improved. She denies any chest pain or anginal symptoms. Wound is clean/dry/intact in her right groin. Hemoglobin and creatinine are within nominal limits. Telemetry negative. EKG shows normal sinus rhythm with old anteroseptal wall and old inferior wall myocardial infarction, no acute changes. Objective: Vital Signs Temp Pulse Resp BP Pulse Ox 97.8 F 87 18 126/70 H 94 12/20/19 03:30 12/20/19 07:12 12/20/19 03:30 12/20/19 03:30 12/20/19 03:30 Oxygen Flow Rate (L/min) 1 Oxygen Delivery Method Room Air Weight: 128 lb 4.944 oz Body Mass Index (BMI) 25.7 Intake and Output for Last 24 Hours 12/18/19 12/19/19 12/20/19 23:59 23:59 23:59 Intake Total 104 / 224 1608.5 / 1608.5 120 / 120 Output Total 2225 / 3175 1800 / 1800 Balance -2121 / -2951 -191.5 / -191.5 120 / 120 General: Awake, Alert, Oriented x 3 HEENT: PERRL, EOMI, Sclera Non Icteric Neck: Supple, Good ROM, No Lymph Node Enlargement Lungs: Clear to auscultation, Diminished Left Base Cardiovascular: Regular Rhythm, Normal S1, Normal S2, No Murmurs, No Rubs, No Gallops Vascular: No Carotid Bruits, Normal Femoral Pulses, Normal Radial Pulses, Normal Dorsalis Pedal Pulse, Normal Posterior Tibial Pulses Abdomen: Bowel Sounds Present, Soft, Non Tender, No HSM, No Organomegaly Extremities: No Cyanosis, No Clubbing, No edema Neurological: No Focal Motor or Sensory Deficit 12/20/19 05:58: WBC 2.9 L, RBC 2.88 L, Hgb 8.4 L, Hct 26.7 L, MCV 92.7, MCH 29.2, MCHC 31.5 L, Plt Count 127 L, MPV 10.0 12/20/19 05:58: Sodium 135 L, Potassium 4.0, Chloride 104, Carbon Dioxide 26.0, Anion Gap 5, BUN 15, Creatinine 0.44 L, Est GFR (MDRD) Af Amer 175, Est GFR (MDRD) Non-Af 145, BUN/Creatinine Ratio 33.7 H, Glucose 84, Calcium 7.7 L, Total Bilirubin 0.40 Rhythm: EKG: ECHO: Stress Test: Cardiac Cath: PCI: CT Surgery: Holter monitor: EPS: PPM: CXR: Chest CT Scan: Medical Necessity - Tobacco Use Smoking Status: Never smoker Assessment/Plan 1. Congestive heart failure: The patient has newly discovered congestive heart failure with evidence on EKG of old anteroseptal and inferior wall myocardial infarction. We will attempt to get old EKGs from her most recent surgery. Issac wolf complains of progressively worsening dyspnea on exertion as well as midsternal chest pain ever since her surgery. She has never undergone cardiac catheterization. Her echocardiogram from 12/16/2019 is as follows: Mildly dilated left ventricle. The estimated ejection fraction is 35-40 %. Stage 1 diastolic dysfunction. There is moderate global hypokinesis of the left ventricle. The left atrium is mildly enlarged. Trivial mitral valve insufficiency. Trivial tricuspid valve insufficiency. Moderate size left pleural effusion. Right ventricular systolic pressure estimated to be 34 mmHg. There is no comparison study available. In addition I recommend continuing lisinopril 10 mg p.o. daily for afterload reduction. Now that she is reached her dry weight, we will initiate Coreg 3.125 mg p.o. twice daily. Patient underwent diagnostic coronary angiogram on 12/19/2019 which demonstrated a significant lesion in her mid LAD. This was stented with a 2.5X 28 Promus Synergy stent, with an excellent result. This morning the patient feels much better. Her LVEF at the time of catheterization was around 45% which is an improvement over her baseline. This point would recommend continuing baby aspirin, Plavix, initiating Coreg, continuing lisinopril, and continuing Lasix p.o. 40 mg a day. Would recommend repeat echocardiogram at the conclusion of cardiac rehab or in 3 months time. Also recommend a 1500 cc fluid restriction. The most current literature states that therapy with rituximab or bendamustine is not significantly associated with an increased occurrence of cardiotoxicity or CHF, but in rare instances it can contribute to congestive heart failure.. 2. Hyperlipidemia: Recommend obtaining a fasting lipid profile. Now that her LFTs have resolved, which is most likely due to passive congestion, recommend starting low-dose Lipitor 20 mg p.o. nightly with a repeat lipid profile in 6 weeks time. 3. Thank you very much for the opportunity to participate in the cardiac care of your patient. He be discharged home and follow-up with Dr. Harper going forward. Inpatient E&M: 36052 Subs Hosp L2
[2019-12-20 09:05] VITALS: BP 109/57; PULSE 92; RESP 14; TEMP 36.7; O2SAT 96
[2019-12-20] MEDS: Smz/Tmp Ds Tablet 1 TABLET PO (09:15)
[2019-12-20] MEDS: Calcium (Elemental) 500 MG Tablet PO (09:15)
[2019-12-20] MEDS: Clopidogrel Bisulfate 75 MG Tablet PO (09:15)
--- NOTE | 2019-12-20 09:15 | DCINST_ITS ---
- Discharge Diagnoses Current Active Problems: Current Active and Chronic Problems (Last Updated 12/19/19 @ 09:34 by Sarah Baker) Arteriosclerosis of coronary artery in patient with history of myocardial infarction (Chronic) Stented coronary artery (Chronic 12/19/19) Successful PTCA/LINDA to MID LAD with a 2.5 x 28 Promus Synergy 12/19/19 per DJN @ [facility] Bilateral pneumonia (Acute) CHF (congestive heart failure) (Acute) Sepsis (Acute) You will use the following diet at home:: Cardiac Your food should be the consistency of: Regular Your liquids should be the consistency of: Regular/Thin Discharge Activity: Return to Normal Activity Allergies/Adverse Reactions: Allergies POLLEN Adverse Reaction (Mild, Uncoded 12/16/19 03:37) Other WATERY EYES, SNEEZING Medications to take at Discharge Multivitamin [Multiple Vitamins] 1 ea PO DAILY 01/06/17 Ibandronate Sodium [Boniva] 150 mg PO Q30D 06/23/17 Calcium Carbonate [Calcium] 1 tab PO DAILY 12/01/17 Lorazepam [Ativan] 0.5 mg PO DAILY PRN PRN 12/01/17 Acyclovir 400 mg PO BID 30 Days #60 tab 11/09/19 Lidocaine/Prilocaine [Lidocaine-Prilocaine Cream] 1 applicatio TP DAILY PRN PRN 30 Days #1 tube 11/09/19 Smz/Tmp Ds [Bactrim Ds] 1 tab PO MOWEFR 12/12/19 Ferrous Sulfate 325 mg PO DAILY@1200 #30 tab 12/15/19 Allopurinol [Zyloprim] 300 mg PO DAILY PRN 12/16/19 Acetaminophen [Tylenol Tablet] 650 mg PO Q6H PRN PRN tablet 12/20/19 Aspirin [Aspirin, Baby] 81 mg PO DAILY@0800 tab.chew 12/20/19 Atorvastatin Calcium [Lipitor] 20 mg PO QHS #30 tab 12/20/19 Carvedilol [Coreg (Beta Rehan)] 3.125 mg PO BID #60 tab 12/20/19 Clopidogrel Bisulfate [Plavix] 75 mg PO DAILY #30 tab 12/20/19 Furosemide [Lasix] 40 mg PO DAILY #30 tab 12/20/19 Lisinopril [Zestril] 10 mg PO DAILY #30 tab 12/20/19 Potassium Chloride [K-Dur] 40 meq PO DAILYCM #60 tab 12/20/19 The following prescriptions were given: Carvedilol [Coreg (Beta Rehan)] 3.125 mg PO BID #60 tab Transmission Status: Pending to [id number] Potassium Chloride [K-Dur] 40 meq PO DAILYCM #60 tab Transmission Status: Pending to [facility] [id number] Furosemide [Lasix] 40 mg PO DAILY #30 tab Transmission Status: Pending to [facility] [id number] Atorvastatin Calcium [Lipitor] 20 mg PO QHS #30 tab Transmission Status: Pending to [facility] 181 Clopidogrel Bisulfate [Plavix] 75 mg PO DAILY #30 tab Transmission Status: Pending to [facility] [id number] Lisinopril [Zestril] 10 mg PO DAILY #30 tab Transmission Status: Pending to [facility] [id number] Orders to be completed after discharge: Phase II, Outpatient Cardiac Rehab Location: None Selected Primary Care Physician: Taylor Gross NP-C [Primary Care Provider] - Please follow up with your Primary Care Physician in: 1-2 weeks Test Results: Test results from this visit will be discussed in further detail at your follow- up appointment, if applicable. Please Follow Up With: Dennis Harper MD When: as directed Proposed Discharge Date: 12/20/19
[2019-12-20] MEDS: Acyclovir 200 MG Capsule 400 MG PO (09:16)
[2019-12-20] MEDS: Aspirin 81 MG TAB.CHEW PO (09:16)
[2019-12-20] MEDS: Lisinopril 10 MG Tablet PO (09:16)
[2019-12-20] MEDS: Multivitamins,Therapeutic Tablet 1 TABLET PO (09:16)
[2019-12-20] MEDS: Furosemide 40 MG Tablet PO (09:20)
[2019-12-20 09:30] VITALS: O2SAT 96; O2SAT 97
[2019-12-20] MEDS: Carvedilol 3.125 MG TABLET PO (10:27)
--- NOTE | 2019-12-20 11:01 | PHA.DC.MC ---
Addendum entered and electronically signed by Tiffany Melgar 12/20/19 11:06: also counseled on furosemide 40mg PO daily. Original Note: Pharmacy Service has performed discharge medication reconciliation and counseling for this patient. 1. ACETAMINOPHEN 650MG PO Q6H PRN PAIN 2. ASPIRIN 81MG PO DAILYCM 3. ATORVASTATIN 20MG PO QHS 4. CARVEDILOL 3.125MG PO BID 5. CLOPIDOGREL 75MG DAILY 6. POTASSIUM CHLORIDE 40MG PO DAILYCM 7. LISINOPRIL 40MG PO DAILY The patient's discharge medication list was reviewed for discrepancies and discrepancies were resolved. Home Medications Multivitamin [Multiple Vitamins] 1 ea PO DAILY 01/06/17 Ibandronate Sodium [Boniva] 150 mg PO Q30D 06/23/17 Calcium Carbonate [Calcium] 1 tab PO DAILY 12/01/17 Lorazepam [Ativan] 0.5 mg PO DAILY PRN PRN 12/01/17 Acyclovir 400 mg PO BID 30 Days #60 tab 11/09/19 Lidocaine/Prilocaine [Lidocaine-Prilocaine Cream] 1 applicatio TP DAILY PRN PRN 30 Days #1 tube 11/09/19 Smz/Tmp Ds [Bactrim Ds] 1 tab PO MOWEFR 12/12/19 Ferrous Sulfate 325 mg PO DAILY@1200 #30 tab 12/15/19 Allopurinol [Zyloprim] 300 mg PO DAILY PRN 12/16/19 Acetaminophen [Tylenol Tablet] 650 mg PO Q6H PRN PRN tab 12/20/19 Aspirin [Aspirin, Baby] 81 mg PO DAILY@0800 tab.chew 12/20/19 Atorvastatin Calcium [Lipitor] 20 mg PO QHS #30 tab 12/20/19 Carvedilol [Coreg (Beta Rehan)] 3.125 mg PO BID #60 tab 12/20/19 Clopidogrel Bisulfate [Plavix] 75 mg PO DAILY #30 tab 12/20/19 Furosemide [Lasix] 40 mg PO DAILY #30 tab 12/20/19 Lisinopril [Zestril] 10 mg PO DAILY #30 tab 12/20/19 Potassium Chloride [K-Dur] 40 meq PO DAILYCM #60 tab 12/20/19 The patient was counseled on the following discharge medications and changes in medications for homegoing were reviewed. The Reason for Use, instructions for use, and potential side effects were reviewed for all new medications. The patient's questions regarding all of their medications were answered. The patient was able to verbally demonstrate an understanding of their discharge medications. Patient counseled by manager clinical pharmacyCaleb.
--- NOTE | 2019-12-20 12:11 | PCM.DC.SUM ---
<Abdirahman Rebolledo - Last Filed: 12/20/19 12:11> Discharge Date and Diagnosis Date of Admission: 12/16/19 Date of Discharge: 12/20/19 - Primary Discharge Diagnosis Acute Problems: Active Problems (Last Updated 12/19/19 @ 09:34 by Sarah Baker) Acute systolic CHF exacerbation Ischemic CM CAD - stent placed to LAD Hx CLL, in chemo Anemia with iron deficiency - Secondary Discharge Diagnosis Chronic Problems: Chronic Problems (Last Updated 12/19/19 @ 09:34 by Sarah Baker) Arteriosclerosis of coronary artery in patient with history of myocardial infarction (Chronic) Stented coronary artery (Chronic 12/19/19) Successful PTCA/LINDA to MID LAD with a 2.5 x 28 Promus Synergy 12/19/19 per DJN @ [facility] CLL (chronic lymphocytic leukemia) (Chronic) Thrombocytopenia (Chronic) Anemia (Chronic) Hospital Course and Treatment Imaging Results: RAD/Chest 1 View (Portable) IMPRESSION: There is a RIGHT-sided Port-A-Cath. The tip is in the superior vena cava. Lungs are expanded. There are bilateral pulmonary infiltrates at the lung bases. There is small pleural effusions. There is NO pneumothorax. The heart is enlarged. 2D TTE: Interpretation Summary Mildly dilated left ventricle. The estimated ejection fraction is 35-40 %. Stage 1 diastolic dysfunction. There is moderate global hypokinesis of the left ventricle. The left atrium is mildly enlarged. Trivial mitral valve insufficiency. Trivial tricuspid valve insufficiency. Moderate size left pleural effusion. Right ventricular systolic pressure estimated to be 34 mmHg. There is no comparison study available. Left Heart Cath: CONCLUSIONS Segmented LV systolic dysfunction- Mild LVEF: by LV gram 45-50 % Single vessel CAD of the mid LAD Successful PTCA/LINDA to MID LAD with a 2.5 x 28 Promus Synergy, post dilated with a2.5 x 12 NC balloon; 75%-->0%, no dissection. RECOMMENDATIONS Referred for immediate PCI Highly recommend quitting all tobacco products Follow up with primary network support Risk factor modification ASA Indefinitley Plavix for at least 12 months Routine post interventional care Refer for Outpatient Cardiac Rehab Manual sheath removal per protocol Manual sheath removal as pt is too thin for closure. Repeat echo after cardiac rehab. Consults: Leroy - Cardiology Operations: cholecystecomy, - Procedures: 2-D Echocardiogram, Cardiac catheterization Summary of Care Provided: Hospital course: The patient is a 79 year old F with pmhx notable for CLL currently undergoing chemo via Dr. Yates, who presented to the ER with SOB and LE edema, PND and orthopnea. She was recently in the hospital with pancreatitis and had a significant amount of IV fluids. She had taken outpatient antibiotics, azithro, with no imorvement. In the ER she had a BNP of 2265, and possible infiltrates and small effusions on CXR. She had no fever or leukocytosis, and she was stable on room air. She was felt to have acute CHF, which she had not had in the past. She was admitted and placed on lasix with good improvement. Echo was obtained and demonstrated reduced EF at 35-40%. Troponin was indeterminate. Cardiology was consulted and recommended heart cath. She was taken for cath on 12/18 and had a LINDA placed to the mid LAD, and noted to have EF of 45-50%. She was stable the following day with no CP or SOB. She was discharged home in stable condition. She will need follow up with her PCP in 1-2 weeks, with oncology as soon as possible, and with cardiology as directed. This patient was seen by Abdirahman Rebolledo PA-C under the supervision of Doctor Houston. [] - Physical Exam Vitals/I&O's: Vital Signs Temp Pulse Resp BP Pulse Ox 98.1 F 92 14 109/57 L 97 12/20/19 09:05 12/20/19 09:05 12/20/19 09:05 12/20/19 09:05 12/20/19 09:30 Oxygen Flow Rate (L/min) 1 Oxygen Delivery Method Room Air Weight: 128 lb 4.944 oz Body Mass Index (BMI) 25.7 Intake and Output for Last 24 Hours 12/18/19 12/19/19 12/20/19 23:59 23:59 23:59 Intake Total 104 / 224 1608.5 / 1608.5 360 / 360 Output Total 2225 / 3175 1800 / 1800 Balance -2121 / -2951 -191.5 / -191.5 360 / 360 General: Alert, Oriented x3, Cooperative HEENT: Atraumatic, PERRLA, EOMI, Normocephalic Neck: Supple, No JVD, Negative Carotid Bruits Lungs: Clear to auscultation, Normal air movement Cardiovascular: Regular rate, No murmurs Abdomen: Bowel Sounds Present, Soft, Non Tender Extremities: No edema, Capillary Refill Less than 3 Seconds Skin: No rashes, No breakdown Musculoskeletal: No Tenderness to Palpation of Joints or Extremities Neurological: Cranial nerves II-XII grossly intact Psych/Mental Status: Normal Affect, Appropriate, Alert and oriented to time, place, person, mood and affect Microbiology Past 72 Hours 12/16/19 18:00 Sputum, Expectorated/Coughed Gram Stain - Final 12/16/19 18:00 Sputum, Expectorated/Coughed Respiratory Culture - Final Mixed normal respiratory ashwini. No Streptococcus pneumoniae, beta-hemolytic Streptococcus or Staphylococcus aureus isolated. 12/16/19 04:20 Blood Culture (Wb) - Port Blood Culture - Preliminary No growth in 48 hours. 12/16/19 04:05 Blood Culture (Wb) - Port Blood Culture - Preliminary No growth in 48 hours. Laboratory Results 12/18/19 05:35: Diff Path Review Reviewed 12/20/19 05:58: WBC 2.9 L, RBC 2.88 L, Hgb 8.4 L, Hct 26.7 L, MCV 92.7, MCH 29.2, MCHC 31.5 L, RDW Std Deviation 50.3 H, RDW Coeff of Malu 14.7 H, Plt Count 127 L, MPV 10.0 12/20/19 05:58: Sodium 135 L, Potassium 4.0, Chloride 104, Carbon Dioxide 26.0, Anion Gap 5, BUN 15, Creatinine 0.44 L, Estim Creat Clear Calc 38.35, Est GFR (MDRD) Af Amer 175, Est GFR (MDRD) Non-Af 145, BUN/Creatinine Ratio 33.7 H, Glucose 84, Calcium 7.7 L, Total Bilirubin 0.40, AST 8 L, ALT 13, Alkaline Phosphatase 80, Total Protein 4.7 L, Albumin 2.2 L, Globulin 2.5, Albumin/Globulin Ratio 0.9 Current Medications Acetaminophen (Tylenol) 650 mg PO Q6H PRN PRN PRN Reason: Pain Score 1-10/Temp > 100.7 F Last Admin: 12/18/19 20:33 Dose: 650 mg Documented by: Acetaminophen (Tylenol) 650 mg PO Q6H PRN PRN PRN Reason: Pain Score 1-3/10 Acyclovir (Zovirax) 400 mg PO BID [facility] Last Admin: 12/20/19 09:16 Dose: 400 mg Documented by: Al Hydroxide/Mg Hydroxide (Mylanta Ii) 30 ml PO Q6H PRN PRN PRN Reason: Gastric Burning Albuterol Sulfate (Ventolin Aerosols) 2.5 mg INHALATION Q2H PRN PRN PRN Reason: SOB/WHEEZING Last Admin: 12/17/19 19:44 Dose: 2.5 mg Documented by: Aspirin (Aspirin, Baby) 81 mg PO DAILY@0800 [facility] Last Admin: 12/20/19 09:16 Dose: 81 mg Documented by: Atorvastatin Calcium (Lipitor) 20 mg PO QHS [facility] Atropine Sulfate () 0.5 mg IV UD PRN PRN Reason: HR <50 bpm Calcium Carbonate (Os-Stephan 500) 500 mg PO DAILYCM [facility] Last Admin: 12/20/19 09:15 Dose: 500 mg Documented by: Carvedilol (Coreg) 3.125 mg PO BID [facility] Last Admin: 12/20/19 10:27 Dose: 3.125 mg Documented by: Clopidogrel Bisulfate (Plavix) 75 mg PO DAILY [facility] Last Admin: 12/20/19 09:15 Dose: 75 mg Documented by: Dextrose (D50w Syringe) 0 gm IV X1 PRN; Protocol PRN Reason: Hypoglycemia Ferrous Sulfate (Ferrous Sulfate) 325 mg PO DAILY@1200 [facility] Last Admin: 12/19/19 16:18 Dose: 325 mg Documented by: Furosemide (Lasix) 40 mg PO DAILY [facility] Last Admin: 12/20/19 09:20 Dose: 40 mg Documented by: Glucagon () 1 mg IM .X1 PRN PRN Reason: Hypoglycemia Guaifenesin (Robitussin Dm) 10 ml PO Q6H PRN PRN PRN Reason: COUGH Heparin Sodium (Beef Lung) (Heparin 500 Unit/5 Ml (100/Ml)) 500 unit IV UD PRN PRN Reason: HEPARIN FLUSH Heparin Sodium (Beef Lung) () 50 units IV UD PRN PRN Reason: Port-a-Cath (VAD)Heparin Flush Sodium Chloride () 1,000 mls @ 0 mls/hr IV .Q0M [facility] Last Infusion: 12/19/19 17:00 Dose: Infused Documented by: Labetalol HCl (Trandate) 5 mg IV X1 PRN PRN Reason: SBP > 160 when pulling sheath Stop: 12/21/19 08:49 Lisinopril (Zestril) 10 mg PO DAILY [facility] Last Admin: 12/20/19 09:16 Dose: 10 mg Documented by: Lorazepam (Ativan) 0.5 mg PO DAILY PRN PRN PRN Reason: ANXIETY Last Admin: 12/18/19 14:08 Dose: 0.5 mg Documented by: Lorazepam (Ativan) 1 mg PO Q6H PRN PRN PRN Reason: BACK SPASMS/ANXIETY Last Admin: 12/19/19 13:17 Dose: 1 mg Documented by: Melatonin (Melatonin) 3 mg PO QHS PRN PRN PRN Reason: INSOMNIA Metoclopramide HCl (Reglan) 5 mg IV Q6H PRN PRN PRN Reason: NAUSEA/VOMITING Morphine Sulfate () 2 - 4 mg IV Q4H PRN PRN PRN Reason: Pain Score 1-10/10 [facility] Admin: 12/20/19 09:16 Dose: 1 tablet Documented by: Nitroglycerin (Nitrostat) 0.4 mg SUBLINGUAL Q5M PRN PRN Reason: CARDIAC/CHEST PAIN Ondansetron HCl (Zofran) 4 mg IV Q8H PRN PRN PRN Reason: NAUSEA/VOMITING Last Admin: 12/16/19 09:54 Dose: 4 mg Documented by: Potassium Chloride (K[facility]Dur) [facility] Last Admin: 12/20/19 09:15 Dose: 40 meq Documented by: Senna/Docusate Sodium (Senokot-S, Crystal-Colace) 2 tablet PO BID PRN PRN PRN Reason: Constipation Sodium Chloride () 10 - 40 ml IV UD PRN PRN Reason: SALINE FLUSH Last Admin: 12/19/19 07:48 Dose: 10 ml Documented by: Sodium Chloride () 500 ml IV BOLUS PRN PRN Reason: VASO-VAGAL PROTOCOL Trimethoprim/Sulfamethoxazole (Bactrim Ds) 1 tablet PO MoWeFr@0800 [facility] Last Admin: 12/20/19 09:15 Dose: 1 tablet Documented by: Discharge Diet: Low fat/ Low Cholesterol, 2000 mg Sodium Diet Discharge Activity: Return to Normal Activity Home Medications: Medications to take at Discharge Multivitamin [Multiple Vitamins] 1 ea PO DAILY 01/06/17 Ibandronate Sodium [Boniva] 150 mg PO Q30D 06/23/17 Calcium Carbonate [Calcium] 1 tab PO DAILY 12/01/17 Lorazepam [Ativan] 0.5 mg PO DAILY PRN PRN 12/01/17 Acyclovir 400 mg PO BID 30 Days #60 tab 11/09/19 Lidocaine/Prilocaine [Lidocaine-Prilocaine Cream] 1 applicatio TP DAILY PRN PRN 30 Days #1 tube 11/09/19 Smz/Tmp Ds [Bactrim Ds] 1 tab PO MOWEFR 12/12/19 Ferrous Sulfate 325 mg PO DAILY@1200 #30 tab 12/15/19 Allopurinol [Zyloprim] 300 mg PO DAILY PRN 12/16/19 Acetaminophen [Tylenol Tablet] 650 mg PO Q6H PRN PRN tab 12/20/19 Aspirin [Aspirin, Baby] 81 mg PO DAILY@0800 tab.chew 12/20/19 Atorvastatin Calcium [Lipitor] 20 mg PO QHS #30 tab 12/20/19 Carvedilol [Coreg (Beta Rehan)] 3.125 mg PO BID #60 tab 12/20/19 Clopidogrel Bisulfate [Plavix] 75 mg PO DAILY #30 tab 12/20/19 Furosemide [Lasix] 40 mg PO DAILY #30 tab 12/20/19 Lisinopril [Zestril] 10 mg PO DAILY #30 tab 12/20/19 Potassium Chloride [K-Dur] 40 meq PO DAILYCM #60 tab 12/20/19 Following Prescrptions Were Given to Patient: Carvedilol [Coreg (Beta Rehan)] 3.125 mg PO BID #60 tab [id number] Potassium Chloride [K-Dur] 40 meq PO DAILYCM #60 tab [facility]: [facility] Furosemide [Lasix] 40 mg PO DAILY #30 tab [facility] Atorvastatin Calcium [Lipitor] 20 mg PO QHS #30 tab [facility]: [facility] Clopidogrel Bisulfate [Plavix] 75 mg PO DAILY #30 tab [facility]: [id number] Lisinopril [Zestril] 10 mg PO DAILY #30 tab Transmission Status: Received by [id number] Other Amb Orders: Phase II, Outpatient Cardiac Rehab Location: None Selected Primary Care Physician: Taylor Gross NP-C [Primary Care Provider] - Please follow up with your Primary Care Physician in: 1-2 weeks Please Follow Up With: Tim Bocanegra NP-C When: as directed Please Follow Up With: Taylor Gross NP-C Please Follow Up With: Samantha Yates MD When: as soon as possible Disposition: Home Minutes spent on discharge:: 35 Patient Condition:: Stable Medical Necessity - Tobacco Use Smoking Status: Never smoker Meaningful Use Info Meaningful Use Diagnoses (Choose all that apply): CHF - CHF ELYSSA/ARB ordered at discharge?: Yes Documented LVEF (%): 45 <Cuco Houston - Last Filed: 12/20/19 17:03> Discharge Date and Diagnosis - Secondary Discharge Diagnosis Chronic Problems: Chronic Problems (Last Updated 12/19/19 @ 09:34 by Sarah Baker) Arteriosclerosis of coronary artery in patient with history of myocardial infarction (Chronic) Stented coronary artery (Chronic 12/19/19) Successful PTCA/LINDA to MID LAD with a 2.5 x 28 Promus Synergy 12/19/19 per DJN @ [facility] CLL (chronic lymphocytic leukemia) (Chronic) Thrombocytopenia (Chronic) Anemia (Chronic) Hospital Course and Treatment Summary of Care Provided: This patient was seen in conjunction with Abdirahman KNIGHT. I have independently interviewed and examined the patient and reviewed pertinent history, examination findings, laboratory and plan of management. I have reviewed the note and agree with the documented findings with the few additional points. In brief, patient is 79-year-old female admitted with shortness of breath consistent with acute systolic and diastolic CHF exacerbation. 2D echo was done shows EF 35 to 40% with stage I diastolic dysfunction, LA mildly enlarged. Moderate sized left pleural effusion. Service Porter is been consulted. Patient on CHF core measures, Lasix 40 mg IV twice daily, Coreg 3.125 mg twice daily, aspirin, Plavix after loading dose of Plavix. On fluid restriction Patient has mild increased troponin 0 0.056 and repeat came normal. BNP elevated 2265. Patient is found single vessel mid LAD coronary artery disease. Had PCI with LINDA. MALToma of right femoral region. Sepsis and pneumonia ruled out. She was admitted with between 12/11-12/15/2019 for gallstone pancreatitis and had lap cholecystectomy. Patient has other comorbidities including CLL and chronic normocytic normochromic anemia most probably secondary to CLL. Discharge medication reconciliation done. Discharge follow-up instructions completed. Discharge process discussed with the patient and all questions were answered to patient's satisfaction. Cardiology follow-up and cardiac rehab as per protocol Total time spent, exact 35 minutes on discharge meds reconciliation, examination, coordination of care with nurses and ancillary staff, review of imaging and blood test and discussion with the patient on follow-up instructions I have discussed my assessment with Abdirahman KNIGHT and orders have been reviewed.[] Objective: Blood pressure and heart rate is stable. Right femoral region no hematoma, bleeding or pain. Physical exam General: Alert, Oriented x3, Cooperative HEENT: Atraumatic, PERRLA, EOMI, Normocephalic Oral: No Gingival or Mucosal Lesions/ Ulcerations Neck: Supple, No JVD, Negative Carotid Bruits Lungs: Air entry diminished in bilateral lung bases. No crepitation/rhonchi Cardiovascular: Regular rate, Regular Rhythm, Normal S1, Normal S2, No murmurs. Right femoral region no bruit or hematoma. Abdomen: Bowel Sounds Present, Soft, Non Tender, Non-Distended : No renal angle tenderness. No suprapubic tenderness. Extremities: Mild pedal edema, Capillary Refill Less than 3 Seconds Skin: No rashes, No breakdown Musculoskeletal: No Tenderness to Palpation of Joints or Extremities Neurological: Cranial nerves II-XII grossly intact, Deep Tendon Reflexes 2+/4 and Symmetrical, Neuro grossly intact Psych/Mental Status: Normal Affect, Appropriate. - Physical Exam Vitals/I&O's: Vital Signs Temp Pulse Resp BP Pulse Ox 98.1 F 92 14 109/57 L 97 12/20/19 09:05 12/20/19 09:05 12/20/19 09:05 12/20/19 09:05 12/20/19 09:30 Oxygen Flow Rate (L/min) 1 Oxygen Delivery Method Room Air Weight: 128 lb 4.944 oz Body Mass Index (BMI) 25.7 Intake and Output for Last 24 Hours 12/18/19 12/19/19 12/20/19 23:59 23:59 23:59 Intake Total 104 / 224 1608.5 / 1608.5 360 / 360 Output Total 2225 / 3175 1800 / 1800 Balance -2121 / -2951 -191.5 / -191.5 360 / 360 Microbiology Past 72 Hours 12/16/19 18:00 Sputum, Expectorated/Coughed Gram Stain - Final 12/16/19 18:00 Sputum, Expectorated/Coughed Respiratory Culture - Final Mixed normal respiratory ashwini. No Streptococcus pneumoniae, beta-hemolytic Streptococcus or Staphylococcus aureus isolated. 12/16/19 04:20 Blood Culture (Wb) - Port Blood Culture - Preliminary No growth in 48 hours. 12/16/19 04:05 Blood Culture (Wb) - Port Blood Culture - Preliminary No growth in 48 hours. Laboratory Results 12/20/19 05:58: WBC 2.9 L, RBC 2.88 L, Hgb 8.4 L, Hct 26.7 L, MCV 92.7, MCH 29.2, MCHC 31.5 L, RDW Std Deviation 50.3 H, RDW Coeff of Malu 14.7 H, Plt Count 127 L, MPV 10.0 12/20/19 05:58: Sodium 135 L, Potassium 4.0, Chloride 104, Carbon Dioxide 26.0, Anion Gap 5, BUN 15, Creatinine 0.44 L, Estim Creat Clear Calc 38.35, Est GFR (MDRD) Af Amer 175, Est GFR (MDRD) Non-Af 145, BUN/Creatinine Ratio 33.7 H, Glucose 84, Calcium 7.7 L, Total Bilirubin 0.40, AST 8 L, ALT 13, Alkaline Phosphatase 80, Total Protein 4.7 L, Albumin 2.2 L, Globulin 2.5, Albumin/Globulin Ratio 0.9 Inpatient E&M: 14724 Disch Hosp
[2019-12-20] MEDS: 0.9% Saline Lock 10 ML Syringe IV (12:18)
--- NOTE | 2019-12-20 14:46 | CASEMGMT ---
[facility] called Palliative Care and notified Bandar that patient was discharged today. SW faxed d/c instructions. They will follow up with patient. Zunilda AMADOR MSW
== END 2019-12-20 13:10 | disposition home or self-care (01) | DRG 246 ==
LOC: ED 05:34 → ICU 07:03 → PCU 12-18 07:12 → ICU 12-18 09:16 → PCU 12-18 09:16 → ICU 12-20 08:26 → PCU 12-20 08:26
PROVIDERS: Internal Medicine Cardiovascular Disease; Physician Assistant; Admitting Provider Hospitalist; Emergency Provider Emergency Medicine; PCP Nurse Practitioner; Visit Provider Internal Medicine
DX: I11.0 Hypertensive heart disease with heart failure (principal); I50.21 Acute systolic (congestive) heart failure; C91.10 Chronic lymphocytic leukemia of B-cell type not having achieved remission; I25.119 Atherosclerotic heart disease of native coronary artery with unspecified angina pectoris; I25.5 Ischemic cardiomyopathy; I25.2 Old myocardial infarction; E78.5 Hyperlipidemia, unspecified; D50.9 Iron deficiency anemia, unspecified; D63.0 Anemia in neoplastic disease; D69.6 Thrombocytopenia, unspecified; Z95.5 Presence of coronary angioplasty implant and graft; Z90.49 Acquired absence of other specified parts of digestive tract; Z79.02 Long term (current) use of antithrombotics/antiplatelets; Z79.899 Other long term (current) drug therapy
CPT/HCPCS: 36415; 36591; 71045; 80048; 80053; 80061; 82728; 83540; 83550; 83605; 83615; 83690; 83735; 83880; 84145; 84478; 84484; 85025; 85027; 85347; 85384; 85610; 87040; 87070; 87205; 87449; 87633; 87635; 92928; 93005; 93306; 93458; 94640; 94667; 94668; 94799; 97802; 97803; 99152; 99153; 99251; 99285; J1756; J7030; J7050; Q9967; A4216; C1725; C1769; C1874; C1887; C1894; C9600; G0463; J1940; J2405; U0003

== ENCOUNTER 2019-12-21 14:10 | Emergency (ER) | payer MEDICARE, OTHER, SELFPAY ==
[2019-12-16 08:29] VITALS: BMI 25.7
[2019-12-21 14:12] VITALS: BP 108/64; PULSE 81; RESP 18; TEMP 36.6; O2SAT 98; BMI 21.2
[2019-12-21 14:15] VITALS: BP 108/64; PULSE 81; RESP 18; TEMP 36.6; O2SAT 98
--- NOTE | 2019-12-21 14:28 | EKG12_ITS ---
Test Reason : CP Blood Pressure : / mmHG Vent. Rate : 078 BPM Atrial Rate : 078 BPM P-R Int : 160 ms QRS Dur : 082 ms QT Int : 372 ms P-R-T Axes : 067 -48 057 degrees QTc Int : 424 ms Normal sinus rhythm Left axis deviation Abnormal ECG Confirmed by LOWELL FOX, CHAS ([id number]), assignment editor RUSS FRYE ([id number]) on 01/01/2020 9:40:19 AM Referred By: BB Confirmed By:KATE ETIENNE MD
--- NOTE | 2019-12-21 14:31 | ED.VISSUMM ---
- ER Visit Summary Date of Service: 12/21/19 Chief Complaint: Chest pain and shortness of breath History of Present Illness: The patient is a [address] Harper, Dr. Yates, and Taylor Gross. She reports that approximately 30 minutes ago while she was trying to rearrange pillows in bed she had the onset of a substernal tightness without radiation. It was 4-10 at worst and is pain-free now. Last approximately 5 minutes. Made her short of breath. She denies any diaphoresis, nausea, or vomiting with this. Does report that she is mildly short of breath with exertion. She has had generalized weakness for the past 2 weeks. Patient was admitted to the hospital from December 10 1 December 19 with new onset CHF. She had a heart catheterization and a stent placed to her mid LAD. Patient has a history of CLL and has had 1 round of chemo at the end of October. She reports she is had a temperature to 100 degrees. She denies any cough. No abdominal pain, nausea, vomiting, or diarrhea. She does report she has a poor appetite. She denies any dysuria or frequency. She reports he has chronic back pain that is unchanged. Physical Examination: Vitals: Stable. Afebrile. General: Well-nourished and well-developed. Head: Normocephalic atraumatic. Neck: Supple, no lymphadenopathy. No JVD. Nontender. Cardiovascular: Regular rate and rhythm. 2 out of 6 systolic murmur. Respiratory: No respiratory distress. Clear to auscultation bilaterally. Abdominal: Soft, nontender, nondistended, normal bowel sounds. No guarding, rebound, or peritoneal signs. Back: Nontender. Extremities: Nontender, trace pedal edema bilaterally. Skin: Normal color, no rash. Neurologic: Alert and oriented ?3. Cranial nerves II through XII are intact. Normal strength and sensation. Psych: Normal affect. Test Results: EKG is sinus at [address] changes. Is unchanged from yesterday. CBC shows an H&H of 9.0 and 20.6, 7 neutrophils 81 and lymphocytes of 11. Chem-7 shows a sodium 131 creatinine 0.53. Troponin is 0.041. Her troponin was 0.034?0.056 on December 15. D-dimer is 0.97. Repeat troponin is 0.041. Clinical Impression(s) from Imaging Studies Chest X-Ray 12/21/19 15:14 IMPRESSION: Residual left basilar infiltrate with small left pleural effusion. This has improved. Improved aeration of the right lung base with blunting of the right costophrenic angle. Electronically Signed: Mk Burch, at 15:38 EDT , Service support , Chest CTA 12/21/19 15:37 IMPRESSION: 1. Normal CTA chest examination, without a demonstrated pulmonary embolism or arterial dissection. 2. Small bilateral pleural effusions with bibasilar atelectasis. Electronically Signed: Juan Allen MD at 16:36 EDT Tel , Service support , Emergency Department Course and Treatment: Patient is resting comfortably in the emergency department. She has had no chest pain. Treatment Plan: Patient was discussed with Dr. Gordillo. It is not felt that this episode that she had today was represents in-stent stenosis. Patient feels well and would like to go home. She will be discharged with instructions to follow-up with Dr. Harper as previously scheduled. Return to the emergency department for any concerns. Disposition: To home in improved and stable condition. Impression: 1. Atypical chest pain. 2. 2-day status post stent to LAD. This note was generated with [employer] dictation software. It may contain incorrect words, spelling, and punctuation that were not noted in review of the chart prior to signing ED Disposition - Plan for ED Patient: Instructions: ED Chest Pain Atypical Unkn Cause Referrals: Taylor Gross, CHRISTIANO-C [Primary Care Provider] - 2 Days Dennis Harper MD [STAFF PHYSICIAN] -
--- NOTE | 2019-12-21 15:14 | RAD_ITS ---
STUDY: X-RAY CHEST REASON FOR EXAM: Female, 79 years old. PATIENT C/O SOB. WAS DISCHARGED FROM HOSPITAL YESTERDAY WITH PNEUMONIA. STATES SHE IS SCARED OF EVERYTHING, VERY ANXIOUS. TECHNIQUE: Single AP portable view of the chest. COMPARISON: Comparison is made with prior study dated 12/16/2019. FINDINGS: A right-sided portacatheter is seen with the tip at the junction of the superior vena cava and right atrium. EKG electrodes are seen. Persistent left lower lobe infiltrate with a small left pleural effusion. This has improved as compared to prior study. Blunting of the right costo phrenic angle. The right lung base is now clear. There is mild cardiac enlargement. Normal mediastinum and flakito. Normal visualized pulmonary arteries. There is atherosclerotic calcification of the aortic arch with tortuosity. Normal visualized thoracic spine. Normal visualized ribs, clavicles, and shoulders. There is no demonstrated abnormality of the visualized soft tissue structures of the upper abdomen. RAD/Chest 1 View (Portable) IMPRESSION: Residual left basilar infiltrate with small left pleural effusion. This has improved. Improved aeration of the right lung base with blunting of the right costophrenic angle. Electronically Signed: Mk Burch, at 15:38 EDT , Service support ,
[2019-12-21 15:16] LABS: Absolute Lymphocyte Count 0.55 X10^3/uL (0.83-4.51); Absolute Neutrophil Count 4.2 X10^3/uL (2.0-7.7); Basophil# 0.03 X10^3/uL; Basophil% 0.6 % (0-1); Eosinophil# 0.03 X10^3/uL; Eosinophils% 0.6 % (0-5); Hematocrit 28.6 % (37-47); Lymphocyte # 0.55 X10^3/ul (4.0); Lymphocyte % 10.5 % (19-41); Mean Corp Hgb Conc 31.5 g/dL (32-36); Mean Corpuscular Hgb 29.2 pg (27.0-32.0); Mean Corpuscular Volume 92.9 fL (81-99); Mean Platelet Vol. 10.6 fl (6.2-12.0); Monocyte# 0.37 X10^3/uL; Monocyte% 7.1 % (0-10); NRBC Flagged by Analyzer 0 % (0-5); Neutrophil # 4.22 X10^3/uL (2.7-7.7); Neutrophil % 80.8 % (47-70); POSITIVE DIFFERENTIAL YES; Platelet Count 152 K/mm3 (150-450); RBC Distribution Width CV 14.8 % (11.6-14.6); RBC Distribution Width SD 49.9 fl (35.1-43.9); Red Blood Count 3.08 M/mm3 (4.2-5.4); White Blood Count 5.2 K/mm3 (4.4-11.0)
[2019-12-21 15:28] LABS: Differential Indicated SCAN CRITERIA MET
[2019-12-21 15:32] LABS: D-Dimer Quantitative (DVT/PE) 0.97 FEU/ug/m (0.27-0.49)
[2019-12-21 15:36] LABS: Anion Gap 5 (5-15); BUN 15 mg/dL (7-18); BUN/Creat Ratio 28.1 RATIO (10-20); Calcium,Total 8.5 mg/dL (8.5-10.1); Chloride 99 mmol/L (98-107); Creatinine, Serum 0.53 mg/dL (0.55-1.02); EST Glomerular Filtration Rate 117 mL/min (>60); Est Glom Filt Rate - Afr Amer 142 mL/min (>60); Estimated Creatinine Clearance 38.35 ml/min; Glucose 99 mg/dL (74-106); Potassium 3.9 mmol/L (3.5-5.1); Sodium Level 131 mmol/L (136-145)
--- NOTE | 2019-12-21 15:37 | CT_ITS ---
STUDY: CTA CHEST REASON FOR EXAM: Female, 79 years old. SOB. Discharged from hospital yesterday for pneumonia. Hx of CLL, CHF HTN RADIATION DOSAGE (If Supplied By Facility): CTDIvol = ( 4.36 ) mGy, DLP = ( 125.95 ) mGycm TECHNIQUE: The examination was performed with the intravenous administration of Isovue 370 75ml. Post-processing of the angiographic images was performed, with multiplanar reformation and 3D reconstruction. Individualized dose optimization techniques were used for this CT. COMPARISON: None. FINDINGS: Normal enhancement of the main pulmonary artery and right and left pulmonary arteries. Normal enhancement of the bilateral peripheral pulmonary arteries. There is no demonstrated pulmonary embolism. Normal thoracic aorta and visualized great vessels. There is no demonstrated aortic dissection. Normal heart and pericardium. Normal mediastinum. Normal hilar regions. Normal visualized trachea and bronchi. The lungs are well expanded. Mild erythematous changes. Mild bilateral apical scarring. No noncalcified nodule or mass. Small bilateral pleural effusions with bibasilar atelectasis. Normal chest wall structures. Severe compression fracture of T12 which is unchanged. Normal visualized upper abdomen. CT/CTA Chest W/WO Contrast IMPRESSION: 1. Normal CTA chest examination, without a demonstrated pulmonary embolism or arterial dissection. 2. Small bilateral pleural effusions with bibasilar atelectasis. Electronically Signed: Juan Allen MD at 16:36 EDT Tel , Service support ,
[2019-12-21 15:39] LABS: Anisocytosis RARE; Hypochromasia RARE; Macrocytosis RARE; Ovalocyte RARE; Platelet Estimate ADEQUATE (ADEQ); Red Cell Morphology N CHROM NORMAL (NORM C&C)
[2019-12-21 16:43] LABS: BNP,B-Type NATRIURETIC PEPTIDE 289.3 pg/mL (0-100)
[2019-12-21 16:55] VITALS: BP 117/62; PULSE 79; RESP 22; TEMP 37; O2SAT 97
[2019-12-21 16:56] VITALS: O2SAT 97
--- NOTE | 2019-12-21 17:12 | EKG12_ITS ---
Test Reason : SOB Blood Pressure : / mmHG Vent. Rate : 077 BPM Atrial Rate : 077 BPM P-R Int : 158 ms QRS Dur : 086 ms QT Int : 390 ms P-R-T Axes : 047 -36 022 degrees QTc Int : 441 ms Normal sinus rhythm Left axis deviation Abnormal ECG Confirmed by SEGUNDO FOX, JODIE ([id number]), videotape editor RUSS FRYE ([id number]) on 12/26/2019 8:54:56 AM Referred By: MIGUEL Confirmed By:JODIE RAYMOND MD
[2019-12-21 19:09] VITALS: BP 108/59; PULSE 80; RESP 21; TEMP 37; O2SAT 94
[2019-12-21 19:19] VITALS: BP 108/59; PULSE 79; RESP 18; O2SAT 96
== END 2019-12-21 19:20 | disposition home or self-care (01) ==
LOC: ED 15:15
PROVIDERS: Emergency Provider Emergency Medicine; PCP Nurse Practitioner
DX: R07.89 Other chest pain (principal); R06.02 Shortness of breath; Z95.5 Presence of coronary angioplasty implant and graft; I11.0 Hypertensive heart disease with heart failure; I50.9 Heart failure, unspecified; C91.10 Chronic lymphocytic leukemia of B-cell type not having achieved remission
CPT/HCPCS: 36591; 71045; 71275; 80048; 83880; 84484; 85025; 85379; 93005; 99285; Q9967; A4216

== ENCOUNTER 2019-12-28 20:28 | Observation (INO) | payer MEDICARE, OTHER, SELFPAY ==
[2019-12-28 20:29] VITALS: BP 91/57; PULSE 83; RESP 18; TEMP 36.6; O2SAT 95; BMI 19.8
--- NOTE | 2019-12-28 20:33 | ED.RN ---
RT AWARE OF NEED FOR CHEST PAIN.
[2019-12-28 21:57] LABS: Absolute Lymphocyte Count 0.83 X10^3/uL (0.83-4.51); Absolute Neutrophil Count 6.1 X10^3/uL (2.0-7.7); Basophil# 0.05 X10^3/uL; Basophil% 0.6 % (0-1); Eosinophil# 0.19 X10^3/uL; Eosinophils% 2.4 % (0-5); Hematocrit 32.3 % (37-47); Hemoglobin 10.3 g/dL (12.0-15.0); Lymphocyte # 0.83 X10^3/ul (4.0); Lymphocyte % 10.7 % (19-41); Mean Corp Hgb Conc 31.9 g/dL (32-36); Mean Corpuscular Hgb 30.1 pg (27.0-32.0); Mean Corpuscular Volume 94.4 fL (81-99); Mean Platelet Vol. 10.4 fl (6.2-12.0); Monocyte# 0.59 X10^3/uL; Monocyte% 7.6 % (0-10); NRBC Flagged by Analyzer 0 % (0-5); Neutrophil # 6.07 X10^3/uL (2.7-7.7); Neutrophil % 77.9 % (47-70); Platelet Count 221 K/mm3 (150-450); RBC Distribution Width CV 15.1 % (11.6-14.6); RBC Distribution Width SD 52.3 fl (35.1-43.9); Red Blood Count 3.42 M/mm3 (4.2-5.4); White Blood Count 7.8 K/mm3 (4.4-11.0)
--- NOTE | 2019-12-28 22:06 | RAD_ITS ---
STUDY: X-RAY CHEST REASON FOR EXAM: Female, 79 years old. Chest pain today. Patient has leukemia as well. TECHNIQUE: Single AP portable view of the chest. COMPARISON: December 21 2019 FINDINGS: Stable right chest port and catheter. The lungs are clear and expanded. There is no demonstrated pleural abnormality. Normal size heart. No visualized consolidation. Stable visualized osseous structures. RAD/Chest 1 View IMPRESSION: No demonstrated acute process Electronically Signed: Reji Serrano MD at 22:49 EDT , Service support ,
[2019-12-28 22:08] LABS: Partial Thromboplast Time 28.1 Seconds (24.1-36.2)
[2019-12-28 22:20] LABS: Anion Gap 4 (5-15); BUN 33 mg/dL (7-18); BUN/Creat Ratio 34.3 RATIO (10-20); Calcium,Total 9.1 mg/dL (8.5-10.1); Chloride 101 mmol/L (98-107); Creatinine, Serum 0.96 mg/dL (0.55-1.02); EST Glomerular Filtration Rate 60 mL/min (>60); Est Glom Filt Rate - Afr Amer 72 mL/min (>60); Estimated Creatinine Clearance 38.73 ml/min; Glucose 104 mg/dL (74-106); Potassium 5.1 mmol/L (3.5-5.1); Sodium Level 131 mmol/L (136-145)
[2019-12-28 22:34] VITALS: BP 94/59; PULSE 76; RESP 15; O2SAT 98
--- NOTE | 2019-12-28 22:50 | ED.DCSUM_ITS ---
History of Present Illness <Luis Varghese - Last Filed: 12/28/19 23:32> Informant: Patient, Family Narrative: Patient is a 79-year-old female with a history of CLL currently undergoing chemotherapy who presents to the emergency department for an episode of chest pain. This lasted for 5 to 10 minutes. She states she was up walking around and when she sat down the pain started. It was substernal. She did have a stent placed last week. She states that she has supposed to been on aspirin but has not been taking this. No associated shortness of breath during this episode. No nausea/vomiting or diaphoresis. Her symptoms have almost completely resolved to this point. Denies any leg swelling or calf pain. No cough, cold, congestion. She described the pain as sharp and stabbing. She states that she never felt this pain before. She denies a smoking history. She tried taking a Tylenol for this which has since helped. She otherwise states she has been feeling very fatigued over the past 3 days. Denies any history of DVT/PE. <Luis Calderon - Last Filed: 12/29/19 00:04> Chief Complaint: Chest Pain - Past Medical History (1) Chest pain Status: Acute (2) Arteriosclerosis of coronary artery in patient with history of myocardial infarction Status: Chronic (3) Stented coronary artery Status: Chronic Comment: Successful PTCA/LINDA to MID LAD with a 2.5 x 28 Promus Synergy 12/19/19 per [facility] (4) CHF (congestive heart failure) Status: Chronic (5) CLL (chronic lymphocytic leukemia) Status: Chronic (6) Thrombocytopenia Status: Chronic (7) Anemia Status: Chronic <Luis Varghese - Last Filed: 12/28/19 23:32> Past Medical History - Family History Maternal Family History: Family History (Last Reviewed 12/16/19 @ 06:[address] Luis Varghese MD) Father Lung cancer Mother CVA (cerebral vascular accident) Son Waldenstrom's disease <Luis Varghese - Last Filed: 12/28/19 23:32> Prior records reviewed: Yes Past Medical History: - - CLL, CAD, CHF, hypertension Surgical History: cholecystectomy, - - Port-A-Cath placement Smoking Status: Never smoker Alcohol: None Drugs: None - Family History Maternal Family History: Family History (Last Reviewed 12/28/19 @ 23:[address] Luis Varghese MD) Father Lung cancer Mother CVA (cerebral vascular accident) Son Waldenstrom's disease Family History: Reports: No pertinent history <GeoffchicaLuis - Last Filed: 12/29/19 00:04> - Allergies and Home Meds Allergies/Adverse Reactions: Allergies POLLEN Adverse Reaction (Mild, Uncoded 12/28/19 20:31) Other WATERY EYES, SNEEZING Review of Systems All systems negative except as indicated General: Denies: Chills, Fever, Sweats Eyes: Denies: Visual changes - bilaterally, Diplopia ENT: Denies: Rhinorrhea, Sore throat Cardiovascular: Reports: Chest pain. Denies: Palpitations Respiratory: Denies: Dyspnea, Cough, Dyspnea on exertion Gastrointestinal: Denies: Abdominal pain, Nausea, Vomiting, Diarrhea, Melena, Hematochezia Genitourinary: Denies: Dysuria, Hematuria, Frequency Musculoskeletal: Denies: Back pain, Extremity Pain Skin: Denies: Rash, Wounds Neurological: Reports: Weakness - Generalized. Denies: Headache, Numbness <RohithjackiechicaLuis - Last Filed: 12/29/19 00:04> Physical Exam Vital Signs/Narrative: Vital Signs Temp Pulse Resp BP Pulse Ox 12/28/19 23:11 77 17 93/50 L 98 12/28/19 22:34 76 15 94/59 L 98 12/28/19 20:29 97.9 F 83 18 91/57 L 95 <Luis Varghese - Last Filed: 12/28/19 23:32> Vital Signs/Narrative: Vital Signs Temp Pulse Resp BP Pulse Ox 12/28/19 22:34 76 15 94/59 L 98 12/28/19 20:29 97.9 F 83 18 91/57 L 95 Inital Vital Signs reviewed: Yes General: Cachectic, No Acute Distress Head: Normocephalic, Atraumatic Eyes: Perrl, EOMI ENT: Moist mucous membranes, No rhinorrhea Neck: Supple, Nontender Cardiovascular: Regular rate, Regular rhythm, No murmurs Respiratory: No distress, CTA bilaterally, Chest nontender Abdomen: Soft, Nontender, Nondistended, Normal bowel sounds Back: Nontender, Normal Inspection Extremities: Nontender, No edema. Negative for: Edema, Calf Tenderness Skin: Normal color, No rash Neurological: Alert, Oriented x3, Cranial nerves II-XII grossly intact, Normal Strength, Normal Sensation Psychological: Normal affect, Normal Mood <Luis Calderon - Last Filed: 12/29/19 00:04> Diagnostic/Tx/Re-eval - EKG Initial EKG Interpretation: - - Rate of 78 bpm and normal sinus rhythm. Left axis deviation. No ST elevations or depressions appreciated. No T wave abnormalities. - Medical Decision Making Patient presents to the emerge department for an episode of chest pain. She did have a stent placed last week. Upon arrival to the emerge department vital signs show a low blood pressure but otherwise normal. She states that her blood pressures have been lower since starting chemotherapy. She has been losing weig ht. She has not been compliant with taking her aspirin. We will give a dose here in the emergency department. Based on the recent stent placement and episode of chest pain I do feel patient better be served in the hospital for further evaluation and management. We can trend her troponins and have cardiology follow patient. Low concern for PE. Patient is very happy with this plan. Otherwise has been stable throughout ED stay. She understands and is agreeable with this plan. <Luis Calderon - Last Filed: 12/29/19 00:04> ED Disposition <Luis Varghese - Last Filed: 12/28/19 23:32> <Luis Calderon - Last Filed: 12/29/19 00:04> - Plan for ED Patient: Disposition: Acute Care Hospital [facility] Diagnosis: Chest pain
--- NOTE | 2019-12-28 22:50 | HP.PCM_ITS ---
Problem List (1) Chest pain Status: Acute (2) Arteriosclerosis of coronary artery in patient with history of myocardial infarction Status: Chronic (3) Stented coronary artery Status: Chronic Comment: Successful PTCA/LINDA to MID LAD with a 2.5 x 28 Promus Synergy 12/19/19 per [facility] (4) CHF (congestive heart failure) Status: Chronic (5) CLL (chronic lymphocytic leukemia) Status: Chronic (6) Thrombocytopenia Status: Chronic (7) Anemia Status: Chronic History of Present Illness Date of Admission: 12/28/19 Chief Complaint: chest pain The patient is a 79 year old F with a significant history of CLL; CAD status post LAD LINDA stent on 12/19/2019 presenting with severe acute transient chest pain that occurred a few hours before presentation. His chest pain was substernal. It lasted for 4 to 5 minutes. It was so severe that she leaned and moaned. The chest pain was nonradiating. She denies any aggravating or ameliorating factors to the chest pain. She denies any nausea, vomiting or diaphoresis. Although she denies shortness of breath she report that her son thought that she was little short of breath. She reported that after a chest pain episode she took her anxiety medications and it helped her. Although patient was recently discharged on aspirin she has not been able to take the baby aspirin since her son could not find the aspirin to buy. Of note patient was admitted on 12/16/2019 and discharged on 12/20/2019. On that admission she was treated for congestive heart failure and had a heart cath on 12/19/2019. On 12/21/2019 patient presented to the emergency department with chest pain. On her 12/21/2019 visit to the ED cardiology was consulted from the ED and recommendation was that patient follows up outpatient as previously ordered. Past Medical History Past Medical History (Chronic Problems): Chronic Problems (Last Reviewed 12/28/19 @ 23:[address] Luis Varghese MD) Arteriosclerosis of coronary artery in patient with history of myocardial infarction (Chronic) Stented coronary artery (Chronic 12/19/19) Successful PTCA/LINDA to MID LAD with a 2.5 x 28 Promus Synergy 12/19/19 per [facility] CHF (congestive heart failure) (Chronic) CLL (chronic lymphocytic leukemia) (Chronic) Thrombocytopenia (Chronic) Anemia (Chronic) Medical History: Medical History (Last Reviewed 12/28/19 @ 23:[address] Luis Varghese MD) Arteriosclerosis of coronary artery in patient with history of myocardial infarction (Chronic) I25.10, I25.2 CLL (chronic lymphocytic leukemia) (Chronic) C91.10 Thrombocytopenia (Chronic) D69.6 Anemia (Chronic) D64.9 Compression fracture OCTOBER 06, 2018 History of pneumonia Z87.01 History of urinary tract infection Z87.440 Measles B05.9 Mumps B26.9 PORT PLACEMENT NOVEMBER 15 2019 bilateral ankle surgery 1954 varicose veins Hypertension I10 Allergies POLLEN Adverse Reaction (Mild, Uncoded 12/28/19 20:31) Other WATERY EYES, SNEEZING Home Medications: Ambulatory Orders Medication Instructions Recorded Multivitamin [Multiple Vitamins] 1 ea PO DAILY 01/06/17 Ibandronate Sodium [Boniva] 150 mg PO Q30D 06/23/17 Calcium Carbonate [Calcium] 1 tab PO DAILY 12/01/17 Lorazepam [Ativan] 0.5 mg PO DAILY PRN PRN 12/01/17 Acyclovir 400 mg PO BID 30 Days #60 tab 11/09/19 Lidocaine/Prilocaine 1 applicatio TP DAILY PRN PRN 30 11/09/19 [Lidocaine-Prilocaine Cream] Days #1 tube Smz/Tmp Ds [Bactrim Ds] 1 tab PO MOWEFR 12/12/19 Ferrous Sulfate 325 mg PO DAILY@1200 #30 tab 12/15/19 Allopurinol [Zyloprim] 300 mg PO DAILY PRN 12/16/19 Acetaminophen [Tylenol Tablet] 650 mg PO Q6H PRN PRN tab 12/20/19 Aspirin [Aspirin, Baby] 81 mg PO DAILY@0800 tab.chew 12/20/19 Atorvastatin Calcium [Lipitor] 20 mg PO QHS #30 tab 12/20/19 Carvedilol [Coreg (Beta Rehan)] 3.125 mg PO BID #60 tab 12/20/19 Clopidogrel Bisulfate [Plavix] 75 mg PO DAILY #30 tab 12/20/19 Lisinopril [Zestril] 10 mg PO DAILY #30 tab 12/20/19 Surgical History: Surgical History (Last Reviewed 12/28/19 @ 23:[address] Luis Varghese MD) Stented coronary artery (Chronic) Onset Date: 12/19/19 Z95.5 Successful PTCA/LINDA to MID LAD with a 2.5 x 28 Promus Synergy 12/19/19 per [facility] @ [facility] History of foot surgery Z98.890 Surgical History: cholecystectomy, - - Port-A-Cath placement Smoking Status: Never smoker - *Family History Maternal Family History: Family History (Last Reviewed 12/28/19 @ 23:[address] Luis Varghese MD) Father Lung cancer Mother CVA (cerebral vascular accident) Son Waldenstrom's disease Review of Systems Constitutional: Denies: Chills, Fever, Weight Change HEENT: Denies: Head Aches, Sinus Congestion, Sinus Drainage Cardiovascular: Reports: Chest Pain. Denies: Palpitations Respiratory: Denies: Cough, Shortness of breath at rest, Sputum production Gastrointestinal: Denies: Abdominal Pain, Nausea, Vomiting Genitourinary: Denies: Dysuria Musculoskeletal: Denies: Joint Pain, Joint Tenderness Skin: Denies: Rash, Wounds Neurological: Denies: Numbness, Tingling, Focal weakness Psychiatric: Reports: Anxiety. Denies: Depression, Homicidal Ideations, Suicidal Ideations Hematologic/ Lymphatic: Denies: Easy Bruising, Easy Bleeding VTE Information - Inpt Only VTE Present on Admission: No VTE Mechan Device Prophylaxis: None VTE Pharm Prophylaxis ordered?: Yes Patient Problems: Active and Suspected Problems (Last Reviewed 12/28/19 @ 23:[address] Luis Varghese MD) Chest pain (Acute) - Physical Exam Vitals/I&O's: Vital Signs Temp Pulse Resp BP Pulse Ox 97.9 F 76 15 94/59 L 98 12/28/19 20:29 12/28/19 22:34 12/28/19 22:34 12/28/19 22:34 12/28/19 22:34 Oxygen Delivery Method Room Air Weight: 50.802 kg Body Mass Index (BMI) 19.8 General: Alert, Oriented x3, Cooperative, - - Frail looking HEENT: Atraumatic, PERRLA, EOMI, Normocephalic Neck: Supple, No JVD, Negative Carotid Bruits Lungs: Clear to auscultation, Normal air movement, No rhonchi, No wheeze, No rales Cardiovascular: Regular rate, Normal S1, Normal S2, No murmurs Abdomen: Bowel Sounds Present, Soft, Non Tender, - - Multiple dry dressing on abdomen( reportedly from recent cholecystectomy) Extremities: No edema, Capillary Refill Less than 3 Seconds Skin: No rashes, No breakdown Musculoskeletal: No Tenderness to Palpation of Joints or Extremities Neurological: Cranial nerves II-XII grossly intact Psych/Mental Status: Normal Affect, Appropriate Laboratory Results 12/28/19 21:50: WBC 7.8, RBC 3.42 L, Hgb 10.3 L, Hct 32.3 L, MCV 94.4, MCH 30.1, MCHC 31.9 L, RDW Std Deviation 52.3 H, RDW Coeff of Malu 15.1 H, Plt Count 221, MPV 10.4, Immature Gran % (Auto) 0.800, Neut % (Auto) 77.9 H, Lymph % (Auto) 10.7 L, Cascade % (Auto) 7.6, Eos % (Auto) 2.4, Baso % (Auto) 0.6, Absolute Neuts (auto) 6.1, Absolute Lymphs (auto) 0.83, Nucleated RBC % 0 12/28/19 21:50: APTT 28.1 12/28/19 21:50: Sodium 131 L, Potassium 5.1, Chloride 101, Carbon Dioxide 26.0, Anion Gap 4 L, BUN 33 H, Creatinine 0.96, Estim Creat Clear Calc 38.73, Est GFR (MDRD) Af Amer 72, Est GFR (MDRD) Non-Af 60, BUN/Creatinine Ratio 34.3 H, Glucose 104, Calcium 9.1, Troponin I < 0.015 Assessment/Plan All Active Problems (Last Reviewed 12/28/19 @ 23:[address] Luis Varghese MD) Chest pain (Acute) The patient is a 79 year old F with a significant history of CLL; CAD status post stents LAD LINDA on 12/19/2019 presenting with severe acute transient chest pain . Chest pain Because of the transient nature of the chest pain it is more likely musculoskeletal or anxiety. On 12/19/2019 patient had heart catheterization where drug-eluting stent was placed in mid LAD. Place on a monitored bed at U Actual CXR image was independently visualized. No acute cardiopulmonary process was noted. Actual EKG tracing was independently visualized. EKG tracing showed sinus rhythm with left axis deviation. Baby aspirin was given at emergency department. ASA 81 mg p.o. daily ordered SL NTG 0.4 mg prn as needed for chest pain ordered Statin: Home statin continued. Anti-P2Y12 Receptor antibody: Plavix continued Stat EKG as needed for chest pain Initial troponin was negative. Will trend troponin. If troponin is unremarkable and if patient has no further chest pain recommend patient can be discharged home and follow up with cardiology. If abnormal troponin or if chest pain re-occur recommend discussing with cardiology. Anxiety disorder PRN lorazepam continued. Chronic systolic heart failure Echocardiogram on 12/16/2019 showed left ventricular ejection fraction of 35 to 40%. Right ventricular systolic pressure was 34 mmHg. Cardiac catheterization on 12/19/2019 showed left ventricle ejection fraction of 45 to 50% by left ventriculogram. Coreg continued Lisinopril continued. CLL On chemotherapy Acyclovir continued Bactrim continued. DVT prophylaxis Lovenox ordered OBSV E&M: [id number] Initial observation care L3
[2019-12-28 22:57] LABS: International Normalized Ratio 1.1; Prothrombin Time (Protime)PT. 13.6 SECONDS (11.7-14.9)
[2019-12-28 23:11] VITALS: BP 93/50; PULSE 77; RESP 17; O2SAT 98
[2019-12-28] MEDS: Aspirin 81 MG TAB.CHEW PO (23:13)
[2019-12-29] VITALS (9 sets, daily range): BP systolic 94–115; BP diastolic 49–56; PULSE 71–78; RESP 16–20; TEMP 36.6–37.3; O2SAT 95–97; BMI 19.5
--- NOTE | 2019-12-29 00:11 | EKG12_ITS ---
Test Reason : CP ADMISSION Blood Pressure : / mmHG Vent. Rate : 072 BPM Atrial Rate : 072 BPM P-R Int : 164 ms QRS Dur : 086 ms QT Int : 390 ms P-R-T Axes : 048 -42 028 degrees QTc Int : 427 ms Normal sinus rhythm Left axis deviation Abnormal ECG Confirmed by SEGUNDO FOX, JODIE ([id number]), editor magazine RUSS FRYE ([id number]) on 01/02/2020 10:57:31 AM Referred By: DR RUTH Confirmed By:JODIE RAYMOND MD
[2019-12-29 04:25] LABS: Anion Gap 7 (5-15); BUN 28 mg/dL (7-18); BUN/Creat Ratio 36.7 RATIO (10-20); Calcium,Total 8.4 mg/dL (8.5-10.1); Chloride 100 mmol/L (98-107); Creatinine, Serum 0.76 mg/dL (0.55-1.02); EST Glomerular Filtration Rate 78 mL/min (>60); Est Glom Filt Rate - Afr Amer 94 mL/min (>60); Glucose 92 mg/dL (74-106); Potassium 4.5 mmol/L (3.5-5.1); Sodium Level 132 mmol/L (136-145)
[2019-12-29 04:32] LABS: Absolute Lymphocyte Count 0.65 X10^3/uL (0.83-4.51); Absolute Neutrophil Count 2.5 X10^3/uL (2.0-7.7); Basophil# 0.02 X10^3/uL; Basophil% 0.6 % (0-1); Eosinophil# 0.03 X10^3/uL; Eosinophils% 0.8 % (0-5); Hematocrit 27.2 % (37-47); Hemoglobin 8.5 g/dL (12.0-15.0); Lymphocyte # 0.65 X10^3/ul (4.0); Lymphocyte % 18.1 % (19-41); Mean Corp Hgb Conc 31.3 g/dL (32-36); Mean Corpuscular Hgb 29.4 pg (27.0-32.0); Mean Corpuscular Volume 94.1 fL (81-99); Mean Platelet Vol. 10.9 fl (6.2-12.0); Monocyte# 0.37 X10^3/uL; Monocyte% 10.3 % (0-10); NRBC Flagged by Analyzer 0 % (0-5); Neutrophil % 69.6 % (47-70); Platelet Count 164 K/mm3 (150-450); RBC Distribution Width CV 15.1 % (11.6-14.6); Red Blood Count 2.89 M/mm3 (4.2-5.4); White Blood Count 3.6 K/mm3 (4.4-11.0)
[2019-12-29] MEDS: Enoxaparin 40 MG/0.4 ML Syringe SC (10:05)
[2019-12-29] MEDS: Multivitamins,Therapeutic Tablet 1 TABLET PO (10:06)
[2019-12-29] MEDS: Clopidogrel Bisulfate 75 MG Tablet PO (10:06)
[2019-12-29] MEDS: Lisinopril 10 MG Tablet PO (10:06)
[2019-12-29] MEDS: Aspirin 81 MG TAB.CHEW PO (10:06)
[2019-12-29] MEDS: Calcium (Elemental) 500 MG Tablet PO (10:06)
[2019-12-29] MEDS: Carvedilol 3.125 MG TABLET PO (10:06)
[2019-12-29] MEDS: Acyclovir 200 MG Capsule 400 MG PO (10:06)
--- NOTE | 2019-12-29 10:11 | DCINST_ITS ---
- Discharge Diagnoses Current Active Problems: Current Active and Chronic Problems (Last Reviewed 12/28/19 @ 23:[address] Luis Varghese MD) Chest pain (Acute) You will use the following diet at home:: Cardiac, Fluid restricted (specify 2000 mls, 1500 mls) - 1500 ml/day Call your doctor if you observe: Shortness of breath, Chest pain Allergies/Adverse Reactions: Allergies POLLEN Adverse Reaction (Mild, Uncoded 12/28/19 20:31) Other WATERY EYES, SNEEZING Medications to take at Discharge Multivitamin [Multiple Vitamins] 1 ea PO DAILY 01/06/17 Ibandronate Sodium [Boniva] 150 mg PO Q30D 06/23/17 Calcium Carbonate [Calcium] 1 tab PO DAILY 12/01/17 Lorazepam [Ativan] 0.5 mg PO DAILY PRN PRN 12/01/17 Acyclovir 400 mg PO BID 30 Days #60 tab 11/09/19 Lidocaine/Prilocaine [Lidocaine-Prilocaine Cream] 1 applicatio TP DAILY PRN PRN 30 Days #1 tube 11/09/19 Smz/Tmp Ds [Bactrim Ds] 1 tab PO MOWEFR 12/12/19 Ferrous Sulfate 325 mg PO DAILY@1200 #30 tab 12/15/19 Allopurinol [Zyloprim] 300 mg PO DAILY PRN 12/16/19 Acetaminophen [Tylenol Tablet] 650 mg PO Q6H PRN PRN tab 12/20/19 Aspirin [Aspirin, Baby] 81 mg PO DAILY@0800 tab.chew 12/20/19 Atorvastatin Calcium [Lipitor] 20 mg PO QHS #30 tab 12/20/19 Carvedilol [Coreg (Beta Rehan)] 3.125 mg PO BID #60 tab 12/20/19 Clopidogrel Bisulfate [Plavix] 75 mg PO DAILY #30 tab 12/20/19 Lisinopril [Zestril] 10 mg PO DAILY #30 tab 12/20/19 Furosemide [Lasix] 40 mg PO DAILY #30 tablet 12/29/19 Potassium Chloride [K-Dur] 40 meq PO DAILY #30 tablet 12/29/19 The following prescriptions were given: Potassium Chloride [K-Dur] 40 meq PO DAILY #30 tablet Furosemide [Lasix] 40 mg PO DAILY #30 tablet Primary Care Physician: Taylor Gross NP-C [Primary Care Provider] - Within 2 Weeks Test Results: Test results from this visit will be discussed in further detail at your follow- up appointment, if applicable. Please Follow Up With: Tim Bocanegra NP-C When: 01/10/2020, already scheduled Proposed Discharge Date: 12/29/19
--- NOTE | 2019-12-29 10:14 | PCM.DC.SUM ---
Discharge Date and Diagnosis - Problem List Patient Problems: Active and Suspected Problems (Last Reviewed 12/28/19 @ 23:[address] Luis Varghese MD) Chest pain (Acute) Date of Admission: 12/28/19 Date of Discharge: 12/29/19 - Primary Discharge Diagnosis Acute Problems: Active Problems (Last Reviewed 12/28/19 @ 23:[address] Luis Varghese MD) Chest pain (Acute) - Secondary Discharge Diagnosis Chronic Problems: Chronic Problems (Last Reviewed 12/28/19 @ 23:[address] Luis Varghese MD) Arteriosclerosis of coronary artery in patient with history of myocardial infarction (Chronic) Stented coronary artery (Chronic 12/19/19) Successful PTCA/LINDA to MID LAD with a 2.5 x 28 Promus Synergy 12/19/19 per ASIYAN @ [facility] CHF (congestive heart failure) (Chronic) CLL (chronic lymphocytic leukemia) (Chronic) Thrombocytopenia (Chronic) Anemia (Chronic) Hospital Course and Treatment Operations: None, cholecystecomy, - Procedures: None Summary of Care Provided: The patient is a 79 year old F presents with chest pain. Patient said that she was walking around and sat down and she had chest pain. Was concerned and presented to the emergency room. In the emergency room, patient's work-up was unremarkable. Patient was admitted late in November for heart failure did have a stent placed at that time. Patient said that she was not taking aspirin as they were not able to find the chewable kind. Patient made aware that she can take any type of aspirin in addition to her other medications. Patient's EKG and troponins here were negative. Given her recent coronary intervention and otherwise stable condition, additional work-up was not further proceeded. Patient has remained stable here. Patient's intake medical reconciliation form did not have any furosemide on and I will be put back on. Patient did receive a prescription on 19 December. Patient feels comfortable returning back home. [] Patient Problems: Active and Suspected Problems (Last Reviewed 12/28/19 @ 23:[address] Luis Varghese MD) Chest pain (Acute) - Physical Exam Vitals/I&O's: Vital Signs Temp Pulse Resp BP Pulse Ox 37.3 C 77 16 115/56 L 97 12/29/19 10:01 12/29/19 10:01 12/29/19 10:01 12/29/19 10:01 12/29/19 10:01 Oxygen Delivery Method Room Air Weight: 50 kg Body Mass Index (BMI) 19.5 Intake and Output for Last 24 Hours 12/27/19 12/28/19 12/29/19 23:59 23:59 23:59 Intake Total 0 / 0 Balance 0 / 0 General: Alert, No apparent distress HEENT: Atraumatic, Normocephalic Oral: Moist Mucosa, No Gingival or Mucosal Lesions/ Ulcerations Neck: No Nodes, Thyroid Normal Size and Texture Lungs: Clear to auscultation, Normal air movement, No rhonchi, No wheeze Cardiovascular: Regular rate, Regular Rhythm, Normal S1, Normal S2 Abdomen: Bowel Sounds Present, Soft, Non Tender, Non-Distended, No Hepato-splenomegaly Extremities: No edema, No Calf Tenderness Psych/Mental Status: Normal Affect, Appropriate Laboratory Results 12/28/19 21:50: WBC 7.8, RBC 3.42 L, Hgb 10.3 L, Hct 32.3 L, MCV 94.4, MCH 30.1, MCHC 31.9 L, RDW Std Deviation 52.3 H, RDW Coeff of [place]u 15.1 H, Plt Count 221, MPV 10.4, Immature Gran % (Auto) 0.800, Neut % (Auto) 77.9 H, Lymph % (Auto) 10.7 L, Edwards % (Auto) 7.6, Eos % (Auto) 2.4, Baso % (Auto) 0.6, Absolute Neuts (auto) 6.1, Absolute Lymphs (auto) 0.83, Nucleated RBC % 0 12/28/19 21:50: APTT 28.1 12/28/19 21:50: Sodium 131 L, Potassium 5.1, Chloride 101, Carbon Dioxide 26.0, Anion Gap 4 L, BUN 33 H, Creatinine 0.96, Estim Creat Clear Calc 38.73, Est GFR (MDRD) Af Amer 72, Est GFR (MDRD) Non-Af 60, BUN/Creatinine Ratio 34.3 H, Glucose 104, Calcium 9.1, Troponin I < 0.015 12/28/19 22:30: PT 13.6, INR 1.1 12/29/19 00:41: Troponin I < 0.015 12/29/19 03:44: WBC 3.6 L, RBC 2.89 L, Hgb 8.5 L, Hct 27.2 L, MCV 94.1, MCH 29.4, MCHC 31.3 L, RDW Std Deviation 52.0 H, RDW Coeff of [place]u 15.1 H, Plt Count 164, MPV 10.9, Immature Gran % (Auto) 0.600, Neut % (Auto) 69.6, Lymph % (Auto) 18.1 L, Edwards % (Auto) 10.3 H, Eos % (Auto) 0.8, Baso % (Auto) 0.6, Absolute Neuts (auto) 2.5, Absolute Lymphs (auto) 0.65 L, Nucleated RBC % 0 12/29/19 03:44: Sodium 132 L, Potassium 4.5, Chloride 100, Carbon Dioxide 25.0, Anion Gap 7, BUN 28 H, Creatinine 0.76, Estim Creat Clear Calc 36.60, Est GFR (MDRD) Af Amer 94, Est GFR (MDRD) Non-Af 78, BUN/Creatinine Ratio 36.7 H, Glucose 92, Calcium 8.4 L, Troponin I < 0.015 Current Medications Acetaminophen (Tylenol) 650 mg PO Q6H PRN PRN PRN Reason: Pain Score 1-10/Temp > 100.7 F Acyclovir (Zovirax) 400 mg PO BID [facility] Last Admin: 12/29/19 10:06 Dose: 400 mg Documented by: Allopurinol (Zyloprim) 300 mg PO DAILY@0800 PRN PRN Reason: with chemo Aspirin (Aspirin, Baby) 81 mg PO DAILY@0800 [facility] Last Admin: 12/29/19 10:06 Dose: 81 mg Documented by: Atorvastatin Calcium (Lipitor) 20 mg PO QHS [facility] Cal[facility] ([facility]Stephan 500) [facility] Admin: 12/29/19 10:06 Dose: 500 mg Documented by: Carvedilol (Coreg) 3.125 mg PO BID [facility] Last Admin: 12/29/19 10:06 Dose: 3.125 mg Documented by: Clopidogrel Bisulfate (Plavix) 75 mg PO DAILY [facility] Last Admin: 12/29/19 10:06 Dose: 75 mg Documented by: Enoxaparin Sodium (Lovenox) 40 mg SC DAILY [facility] Last Admin: 12/29/19 10:05 Dose: 40 mg Documented by: Ferrous Sulfate (Ferrous Sulfate) 325 mg PO DAILY@1200 [facility] Sodium Chloride () 250 mls @ 15 mls/hr IV .[id number] PRN PRN Reason: Saline Flush Sodium Chloride () 250 mls @ 15 mls/hr IV .[id number] PRN PRN Reason: Additional IVPB Infusion Lisinopril (Zestril) 10 mg PO DAILY [facility] Last Admin: 12/29/19 10:06 Dose: 10 mg Documented by: Lorazepam (Ativan) 0.5 mg PO DAILY PRN PRN PRN Reason: ANXIETY Melatonin (Melatonin) 3 mg PO QHS PRN PRN PRN Reason: INSOMNIA Multivitamins ([facility]itamin) [facility] Last Admin: 12/29/19 10:06 Dose: 1 tablet Documented by: Nitroglycerin (Nitrostat) 0.4 mg SUBLINGUAL Q5M PRN PRN Reason: CARDIAC/CHEST PAIN Non-Formulary Medication (Ibandronate Sodium [Boniva]) 150 mg PO Q30D [facility] Ondansetron HCl (Zofran) 4 mg IV Q8H PRN PRN PRN Reason: NAUSEA/VOMITING Sodium Chloride () 10 - 40 ml IV UD PRN PRN Reason: SALINE FLUSH Trimethoprim/Sulfamethoxazole (Bactrim Ds) 1 tablet PO MoWeFr@0800 [facility] Discharge Diet: Low fat/ Low Cholesterol, 2000 mg Sodium Diet Call your doctor if you observe: Shortness of breath, Chest pain Home Medications: Medications to take at Discharge Multivitamin [Multiple Vitamins] 1 ea PO DAILY 01/06/17 Ibandronate Sodium [Boniva] 150 mg PO Q30D 06/23/17 Calcium Carbonate [Calcium] 1 tab PO DAILY 12/01/17 Lorazepam [Ativan] 0.5 mg PO DAILY PRN PRN 12/01/17 Acyclovir 400 mg PO BID 30 Days #60 tab 11/09/19 Lidocaine/Prilocaine [Lidocaine-Prilocaine Cream] 1 applicatio TP DAILY PRN PRN 30 Days #1 tube 11/09/19 Smz/Tmp Ds [Bactrim Ds] 1 tab PO MOWEFR 12/12/19 Ferrous Sulfate 325 mg PO DAILY@1200 #30 tab 12/15/19 Allopurinol [Zyloprim] 300 mg PO DAILY PRN 12/16/19 Acetaminophen [Tylenol Tablet] 650 mg PO Q6H PRN PRN tab 12/20/19 Aspirin [Aspirin, Baby] 81 mg PO DAILY@0800 tab.chew 12/20/19 Atorvastatin Calcium [Lipitor] 20 mg PO QHS #30 tab 12/20/19 Carvedilol [Coreg (Beta Rehan)] 3.125 mg PO BID #60 tab 12/20/19 Clopidogrel Bisulfate [Plavix] 75 mg PO DAILY #30 tab 12/20/19 Lisinopril [Zestril] 10 mg PO DAILY #30 tab 12/20/19 Furosemide [Lasix] 40 mg PO DAILY #30 tablet 12/29/19 Potassium Chloride [K-Dur] 40 meq PO DAILY #30 tablet 12/29/19 Following Prescriptions Were Given to Patient: Potassium Chloride [K-Dur] 40 meq PO DAILY #30 tablet Furosemide [Lasix] 40 mg PO DAILY #30 tablet Primary Care Physician: Taylor Gross NP-C [Primary Care Provider] - Within 2 Weeks Please Follow Up With: Tim Bocanegra NP-C When: 01/10/2020, already scheduled Disposition: Home Minutes spent on discharge:: 32 Patient Condition:: Fair Medical Necessity - Tobacco Use Smoking Status: Never smoker Meaningful Use Info Meaningful Use Diagnoses (Choose all that apply): None applicable OBSV E&M: 92552 Observation care discharge
--- NOTE | 2019-12-29 11:38 | PHA.DC.MC ---
Pharmacy Service has performed discharge medication reconciliation and counseling for this patient. The patient was counseled on the following discharge medications and changes in medications for homegoing were reviewed. 1. LASIX 2. POTASSIUM CHLORIDE The Reason for Use, instructions for use, and potential side effects were reviewed for all new medications. The patient's questions regarding all of their medications were answered. The patient was able to verbally demonstrate an understanding of their discharge medications. Home Medications Multivitamin [Multiple Vitamins] 1 ea PO DAILY 01/06/17 Ibandronate Sodium [Boniva] 150 mg PO Q30D 06/23/17 Calcium Carbonate [Calcium] 1 tab PO DAILY 12/01/17 Lorazepam [Ativan] 0.5 mg PO DAILY PRN PRN 12/01/17 Acyclovir 400 mg PO BID 30 Days #60 tab 11/09/19 Lidocaine/Prilocaine [Lidocaine-Prilocaine Cream] 1 applicatio TP DAILY PRN PRN 30 Days #1 tube 11/09/19 Smz/Tmp Ds [Bactrim Ds] 1 tab PO MOWEFR 12/12/19 Ferrous Sulfate 325 mg PO DAILY@1200 #30 tab 12/15/19 Allopurinol [Zyloprim] 300 mg PO DAILY PRN 12/16/19 Acetaminophen [Tylenol Tablet] 650 mg PO Q6H PRN PRN tab 12/20/19 Aspirin [Aspirin, Baby] 81 mg PO DAILY@0800 tab.chew 12/20/19 Atorvastatin Calcium [Lipitor] 20 mg PO QHS #30 tab 12/20/19 Carvedilol [Coreg (Beta Rehan)] 3.125 mg PO BID #60 tab 12/20/19 Clopidogrel Bisulfate [Plavix] 75 mg PO DAILY #30 tab 12/20/19 Lisinopril [Zestril] 10 mg PO DAILY #30 tab 12/20/19 Furosemide [Lasix] 40 mg PO DAILY #30 tab 12/29/19 Potassium Chloride [K-Dur] 40 meq PO DAILY #30 tab 12/29/19 The patient's discharge medication list was reviewed for discrepancies and discrepancies were resolved.
== END 2019-12-29 10:12 | disposition home or self-care (01) ==
LOC: ED 23:09 → PCU 23:42
PROVIDERS: Admitting Provider Hospitalist; Emergency Provider Emergency Medicine; PCP Nurse Practitioner
DX: R07.89 Other chest pain (principal); I25.2 Old myocardial infarction; I25.10 Atherosclerotic heart disease of native coronary artery without angina pectoris; C91.10 Chronic lymphocytic leukemia of B-cell type not having achieved remission; F41.9 Anxiety disorder, unspecified; D64.9 Anemia, unspecified; I50.22 Chronic systolic (congestive) heart failure; I11.0 Hypertensive heart disease with heart failure; Z95.5 Presence of coronary angioplasty implant and graft; Z79.899 Other long term (current) drug therapy; Z79.82 Long term (current) use of aspirin; Z79.02 Long term (current) use of antithrombotics/antiplatelets; Z91.14 Patient's other noncompliance with medication regimen
CPT/HCPCS: 36415; 71045; 80048; 84484; 85025; 85610; 85730; 93005; 96372; 97802; 99218; 99283; A4216; G0378

== ENCOUNTER → 2020-06-04 10:48 | Outpatient (CLI) | payer MEDICARE, OTHER, SELFPAY ==
[2020-05-27 08:48] VITALS: BMI 20.9
--- NOTE | 2020-06-04 10:49 | BI_ITS ---
MAMMOGRAPHY - BILATERAL SCREENING REASON FOR EXAM: Female, 79 years old. Routine annual screening examination. PERTINENT HISTORY: Sister with breast cancer. TECHNIQUE: Digital bilateral breast zari (3D mammographic acquisition) in the CC and MLO projections. 2-D mediolateral oblique (MLO) and craniocaudad (CC) views of both breasts were obtained. CAD: Full Field Digital Mammography with Computer Added Detection was performed. COMPARISON: Comparison is made with prior study dated 05/09/2019 and 01/29/2018. FINDINGS: Breast Composition: There are scattered areas of fibroglandular density. There are no dominant masses or suspicious calcifications. No other significant abnormalities are identified. There has been no significant change since the prior study. BI/SCREEN MAMM (CAD) W/ZARI BILAT IMPRESSION: Stable bilateral screening mammogram. Yearly follow-up mammogram recommended. (A) ASSESSMENT CATEGORY: BIRADS Category 1: Negative. A letter regarding these results will be sent to the patient by the facility within 30 days. Approximately 10% of breast cancers are not detected by mammography. A normal mammogram should not delay biopsy of a clinically suspicious abnormality. [id number] Electronically Signed: Mk Burch, at 12:14 EST , Service support ,
== END ==
PROVIDERS: PCP Nurse Practitioner; Visit Provider Internal Medicine Hematology & Oncology
DX: Z12.31 Encounter for screening mammogram for malignant neoplasm of breast (principal); Z80.3 Family history of malignant neoplasm of breast
CPT/HCPCS: 77063; 77067

== ENCOUNTER 2020-07-17 16:00 | Outpatient (RCR) | payer MEDICARE, OTHER, SELFPAY ==
[2020-07-08 10:40] VITALS: BMI 21.4
== END 2020-07-17 23:59 ==
LOC: IMMUN 16:00
PROVIDERS: PCP Nurse Practitioner; Referring Provider Family Medicine; Visit Provider Family Medicine
DX: Z23 Encounter for immunization (principal)
CPT/HCPCS: 0011A; 0012A

== ENCOUNTER → 2020-08-01 10:38 | Outpatient (CLI) | payer MEDICARE, OTHER, SELFPAY ==
[2020-04-08 09:32] VITALS: BMI 20.2
[2020-07-08 10:40] VITALS: BMI 21.4
--- NOTE | 2020-08-01 10:40 | ECHOL_ITS ---
Reason For Study: Evaluation of EF, S/P PCI 11/2019 Procedure This was a limited 2D transthoracic echocardiogram. Exam performed in department. Left Ventricle Normal LV size. The estimated ejection fraction is 60 %. Unable to assess diastolic dysfunction. No regional wall motion abnormalities noted. Right Ventricle Normal RV size. Normal systolic function. Atria The left atrium is mildly enlarged. Normal right atrium. No doppler evidence for ASD. Mitral Valve There is no mitral valve stenosis. not assessed. Tricuspid Valve There is no tricuspid stenosis. not asessed. Aortic Valve There is no aortic stenosis. not assessed. Great Vessels Normal aortic root. Pericardium/Pleural No pericardial effusion. MMode/2D Measurements & Calculations LVIDd: 4.8 cm IVSd: 0.90 cm Ao root diam: 3.1 cm LVIDs: 3.3 cm LVPWd: 0.83 cm LA dimension: 3.4 cm RVDd: 3.0 cm FS: 31.2 % LAV(MOD-bp): 53.5 ml LA A4 area: 17.8 cm2 RA A4 area: 12.0 cm2 LAV(MOD-bp) Indexed: 33.4 ml/m2 LAV(MOD-sp2): 54.2 ml LAV(MOD-sp4): 52.3 ml Interpretation Summary Limited echo done to evaluate EF The estimated ejection fraction is 60 %. Unable to assess diastolic dysfunction. Ordering Physician: Tim Bocanegra Referring Physician: Taylor Gross Performed By: Glenna Toledo, MARC, RVT
== END ==
PROVIDERS: PCP Nurse Practitioner; Referring Provider Nurse Practitioner Family; Visit Provider Nurse Practitioner Family
DX: I25.10 Atherosclerotic heart disease of native coronary artery without angina pectoris (principal); I50.9 Heart failure, unspecified; I25.2 Old myocardial infarction; Z95.5 Presence of coronary angioplasty implant and graft
CPT/HCPCS: 93308

== ENCOUNTER → 2020-11-14 09:00 | Outpatient (CLI) | payer MEDICARE, OTHER, SELFPAY ==
[2020-11-04 13:47] VITALS: BMI 22.1
[2020-11-14 10:01] LABS: Cholesterol 135 mg/dL (200); High Density Lipoprotein 55 mg/dL; Triglycerides 99 mg/dL; Very Low Density Lipoprotein 20 mg/dL (5-40)
== END ==
PROVIDERS: PCP Nurse Practitioner; Referring Provider Nurse Practitioner Family; Visit Provider Nurse Practitioner Family
DX: K85.90 Acute pancreatitis without necrosis or infection, unspecified (principal); I25.10 Atherosclerotic heart disease of native coronary artery without angina pectoris; I25.2 Old myocardial infarction; Z95.5 Presence of coronary angioplasty implant and graft; I50.20 Unspecified systolic (congestive) heart failure; E78.5 Hyperlipidemia, unspecified
CPT/HCPCS: 36415; 80061

== ENCOUNTER 2021-03-07 10:02 | Emergency (ER) | payer MEDICARE, OTHER, SELFPAY ==
[2021-03-07 10:04] VITALS: BP 165/85; PULSE 82; RESP 14; TEMP 35.6; O2SAT 93; BMI 22.3
--- NOTE | 2021-03-07 10:18 | CT_ITS ---
STUDY: CT ABDOMEN AND PELVIS WITHOUT CONTRAST REASON FOR EXAM: Female, 80 years old. R flank pain. Nausea and vomiting. RADIATION DOSAGE (If Supplied By Facility): CTDIvol = ( 6.04 ) mGy, DLP = ( 271.80 ) mGycm TECHNIQUE: Transaxial images were obtained from the dome of the diaphragm to the symphysis pubis without oral contrast, and without intravenous contrast. Sagittal and coronal images were reconstructed. Individualized dose optimization techniques were used for this CT. COMPARISON: Comparison is made with prior study dated 12/12/2019. FINDINGS: Mild degree of increased markings at the lung bases suggestive of mild scarring. The previously seen pleural effusions have resolved. Coronary artery calcification. There is hepatomegaly with diffuse hepatic enlargement. There are surgical clips in the gallbladder fossa consistent with a prior cholecystectomy. Normal spleen. Normal pancreas. Normal bilateral adrenal glands. Normal right kidney. Normal left kidney. Normal visualized stomach. Normal small intestine. There are colonic diverticula consistent with diverticulosis. The appendix is visualized and appears normal. There is diffuse atherosclerotic calcification of the abdominal aorta, without a demonstrated aneurysm. Normal inferior vena cava. Normal retroperitoneum. Normal urinary bladder. Phleboliths are once again seen in the pelvis. There is a small umbilical hernia containing fat. There is again, there is complete compression of the T12 vertebrae. Loss of height of the superior endplate of the L5 vertebra. CT/Abdomen/Pelvis without Cont IMPRESSION: Hepatomegaly. No acute abnormality is seen. Electronically Signed: Mk Burch MD at 12:14 EDT , Service support ,
--- NOTE | 2021-03-07 10:19 | EX.ED.DYSGE1 ---
HPI History of Present Illness Chief Complaint: Flank Pain Informant: patient Narrative Narrative: 80-year female presenting with right flank pain. Patient states this started a few days ago. She states initially she thought that she may have pulled a muscle or slept wrong. She continues to have pain in her right flank that is worse with standing and walking. She denies urinary complaints. Denies chest pain or shortness of breath. Denies bowel or bladder incontinence. Denies numbness or weakness. Prior similar symptoms: No Recent Illness/Hospitalization: No PFSH PFSH Medical History Anemia Arteriosclerosis of coronary artery in patient with history of myocardial infarction bilateral ankle surgery CLL (chronic lymphocytic leukemia) Compression fracture excess ankle bone removal History of pneumonia History of urinary tract infection Hypertension Leukopenia Measles Mumps Osteopenia PORT PLACEMENT Thrombocytopenia varicose veins Home Medications multivitamin 1 ea PO DAILY 01/06/17 [History Last Taken 12/28/19 09:00] calcium carbonate 1 tab PO DAILY 12/01/17 [History Last Taken 12/28/19 09:00] lorazepam 0.5 mg PO DAILY PRN PRN 12/01/17 [History Last Taken 12/28/19 20:15] lidocaine-prilocaine 1 applicatio TP DAILY PRN PRN 30 Days #1 tube 11/09/19 [Rx Last Taken Unknown] acetaminophen 650 mg PO Q6H PRN PRN tab 12/20/19 [Rx Last Taken 12/28/19 09:00] aspirin 81 mg PO DAILY@0800 tab.chew 12/20/19 [Rx Last Taken 12/28/19] diazepam 5 mg tablet 5 mg PO QHS PRN #1 tablet 09/09/20 [Rx Last Taken Unknown] denosumab 60 mg/mL subcutaneous syringe 60 mg SUBCUT [id number] 10/09/20 [History Last Taken Unknown] atorvastatin 20 mg tablet 20 mg PO QHS #90 tab 01/14/21 [Rx Last Taken Unknown] carvedilol 3.125 mg tablet 3.125 mg PO BID #180 tab 01/22/21 [Rx Last Taken Unknown] clopidogrel 75 mg tablet 75 mg PO DAILY #90 tab 01/22/21 [Rx Last Taken Unknown] lisinopril 10 mg tablet 10 mg PO DAILY #90 tab 01/22/21 [Rx Last Taken Unknown] amoxicillin-pot clavulanate 1 tab PO BID 03/07/21 [History Last Taken Unknown] Allergy/AdvReac Type Severity Reaction Status Date / Time POLLEN AdvReac Mild Other Uncoded 09/09/20 11:14 Family History Father Lung cancer Mother CVA (cerebral vascular accident) Son Waldenstrom's disease Daughter Leukemia Surgical History History of cholecystectomy History of foot surgery Stented coronary artery (12/19/19) Social History household members: children and other details: friend of the family housing: house Smoking Status: Never smoker alcohol intake: never what type of physical activity do you participate in: walking frequency: 1-2 times per week duration: 30-45 minutes/day annika/jain: Advent seatbelt use: always do you feel safe at home: Yes ROS ROS ED Constitutional Constitutional ED: Denies fever(s) Eyes Eyes: Denies change in vision ENT ENT ED: Denies rhinorrhea or sore throat Cardiovascular Cardiovascular: Denies chest pain or palpitations Respiratory/Chest Respiratory/Chest: Denies cough or dyspnea Gastrointestinal Gastrointestinal: Reports nausea; Denies abdominal pain, diarrhea or vomiting Genitourinary Genitourinary ED: Denies dysuria or hematuria Musculoskeletal Musculoskeletal: Reports other Details: Right flank pain ; Denies myalgias Integumentary Denies rash Neurologic Neurologic: Denies headache(s) Psychiatric Psychiatric: Denies suicidal thoughts EXAM Physical Exam Const Vital Signs: 03/07/21 10:04 03/07/21 10:57 03/07/21 12:14 Temperature 96.1 F L Temperature Source Temporal Pulse Rate 82 60 Respiratory Rate 14 18 Respiratory Effort Normal Non-Labored Blood Pressure 165/85 H 125/69 H Blood Pressure Mean 111 87 Pulse Ox 93 99 Oxygen Delivery Method Room Air Room Air Positive well nourished and well developed General Appearance ED: well developed HEENT Reports normocephalic and head/scalp atraumatic Eyes PERRL and EOMs intact bilaterally Neck supple General: Negative for tenderness Chest Wall inspection of chest normal Resp normal respiratory effort and clear to auscultation bilaterally Cardio regular rate and regular rhythm GI non-tender and non-distended Palpation: soft; Negative for guarding or rebound tenderness present no CVA tenderness Back/Spine General Back: CVA tenderness right Cervical Spine: Negative for cervical spine tenderness Thoracic Spine / Upper Back: Negative for thoracic spinal tenderness Lumbar Spine / Lower Back: Negative for lumbar spinal tenderness Extremity normal to inspection Neuro oriented x3 and no sensory deficits noted Sensorium / Orientation: alert Motor Exam: strength 5/5 throughout Psych mental status grossly normal Skin no rashes or lesions noted MDM MDM MDM Narrative Medical decision making narrative: Patient was given morphine, Zofran IV. CBC, chemistries unremarkable. Urinalysis unremarkable. CT abdomen pelvis shows hepatomegaly, no acute abnormality. On reevaluation, patient is feeling improved. She will take Tylenol as needed for pain. She has a scheduled appointment with her primary care physician. Advised return to the ED for worsening complaints. Lab Data Attestation: I reviewed the patient's lab results. Labs: Laboratory Results - last 24 hr 03/07/21 03/07/21 03/07/21 11:00 11:00 11:58 WBC 5.6 RBC 4.08 L Hgb 12.5 Hct 38.3 MCV 93.9 MCH 30.6 MCHC 32.6 RDW Std Deviation 44.6 H RDW Coeff of Malu 13.1 Plt Count 114 L MPV 11.3 Immature Gran % (Auto) 0.200 Neut % (Auto) 81.3 H Lymph % (Auto) 8.3 L [place] % (Auto) 7.7 Eos % (Auto) 2.0 Baso % (Auto) 0.5 Absolute Neuts (auto) 4.5 Absolute Lymphs (auto) 0.46 L Nucleated RBC % 0 Differential Comment COMMENT Sodium 140 Potassium 4.2 Chloride 112 H Carbon Dioxide 26.0 Anion Gap 2 L BUN 21 H Creatinine 0.75 Estim Creat Clear Calc 39.39 Est GFR (MDRD) Af Amer 96 Est GFR (MDRD) Non-Af 79 BUN/Creatinine Ratio 28.0 H Glucose 101 Calcium 8.4 L Urine Color Yellow Urine Clarity Sl. Cloudy Urine pH 5.0 Ur Specific [place] 1.020 Urine Protein Negative Urine Glucose (UA) Normal Urine Ketones Negative Urine Occult Blood 10 H Urine Nitrite Negative Urine Bilirubin Negative Urine Urobilinogen Normal Ur Leukocyte Esterase 25 H Urine RBC 0-5 SEEN Urine WBC 0-5 SEEN Ur Squamous Epith Cells 0-5 SEEN Urine Bacteria RARE Urine Mucus 0 SEEN Radiography Diagnostic Testing: Clinical Impression(s) from Imaging Studies Abdomen/Pelvis CT 03/07/21 10:18 IMPRESSION: Hepatomegaly. No acute abnormality is seen. Electronically Signed: Mk Burch MD at 12:14 EDT , Service support , Discharge Plan Triage Chief Complaint: Flank Pain ED Provider: Roberta Dutta Dx/Rx/DC Orders Clinical Impression: Acute right flank pain Instructions: ED Flank Pain, Uncertain Cause Prescriptions: No Action Prolia 60 mg/mL syringe 60 mg subcut [id number] RF: 0 diazepam [Valium] 5 mg tablet 5 mg PO QHS PRN (Reason: anxiety) Qty: 1 RF: 0 lorazepam 0.5 MG tablet 0.5 mg PO DAILY PRN PRN (Reason: Anxiety) RF: 0 calcium carbonate 500 MG tablet 1 tab PO DAILY RF: 0 lidocaine-prilocaine 30 GM cream 1 applicatio TP DAILY PRN PRN (Reason: Not Specified) 30 Days Qty: 1 RF: 2 acetaminophen 325 MG tablet 650 mg PO Q6H PRN PRN (Reason: Pain Score 1-3/10) RF: 0 aspirin 81 MG tablet,chewable 81 mg PO DAILY@0800 RF: 0 amoxicillin-pot clavulanate 875-125 mg tablet 1 tab PO BID RF: 0 multivitamin 1 EACH tablet 1 ea PO DAILY RF: 0 atorvastatin 20 mg tablet 20 mg PO QHS Qty: 90 RF: 3 carvedilol 3.125 mg tablet 3.125 mg PO BID Qty: 180 RF: 3 lisinopril 10 mg tablet 10 mg PO DAILY Qty: 90 RF: 3 clopidogrel 75 mg tablet 75 mg PO DAILY Qty: 90 RF: 3 Primary Care Provider: Taylor Gross NP Referrals: Taylor Gross NP, MATERIALS ASSISTANT-C [Primary Care Provider] - Disposition Disposition: Home, Self Care
[2021-03-07] MEDS: Morphine 4 MG/ML Syringe IV (10:58)
[2021-03-07] MEDS: Ondansetron 4 MG/2 ML Vial IV (10:59)
[2021-03-07 11:12] LABS: Absolute Lymphocyte Count 0.46 X10^3/uL (0.83-4.51); Absolute Neutrophil Count 4.5 X10^3/uL (2.0-7.7); Basophil# 0.03 X10^3/uL; Basophil% 0.5 % (0-1); Eosinophil# 0.11 X10^3/uL; Hematocrit 38.3 % (37-47); Hemoglobin 12.5 g/dL (12.0-15.0); Lymphocyte # 0.46 X10^3/ul (0.83-4.51); Lymphocyte % 8.3 % (19-41); Mean Corp Hgb Conc 32.6 g/dL (32-36); Mean Corpuscular Hgb 30.6 pg (27.0-32.0); Mean Corpuscular Volume 93.9 fL (81-99); Mean Platelet Vol. 11.3 fl (6.2-12.0); Monocyte# 0.43 X10^3/uL; Monocyte% 7.7 % (0-10); NRBC Flagged by Analyzer 0 % (0-5); Neutrophil # 4.51 X10^3/uL (2.7-7.7); Neutrophil % 81.3 % (47-70); POSITIVE DIFFERENTIAL YES; Platelet Count 114 K/mm3 (150-450); RBC Distribution Width CV 13.1 % (11.6-14.6); RBC Distribution Width SD 44.6 fl (35.1-43.9); Red Blood Count 4.08 M/mm3 (4.2-5.4); White Blood Count 5.6 K/mm3 (4.4-11.0)
[2021-03-07 11:13] LABS: Differential Indicated SCAN CRITERIA MET
[2021-03-07 11:21] LABS: Anion Gap 2 (5-15); BUN 21 mg/dL (7-18); Calcium,Total 8.4 mg/dL (8.5-10.1); Chloride 112 mmol/L (98-107); Creatinine, Serum 0.75 mg/dL (0.55-1.02); EST Glomerular Filtration Rate 79 mL/min (>60); Est Glom Filt Rate - Afr Amer 96 mL/min (>60); Estimated Creatinine Clearance 39.39 ml/min; Glucose 101 mg/dL (74-106); Potassium 4.2 mmol/L (3.5-5.1); Sodium Level 140 mmol/L (136-145)
[2021-03-07 12:04] LABS: Mucous, Urine 0 SEEN /hpf (<or=2+)
[2021-03-07 12:09] LABS: Color, Urine Yellow (Yellow); Glucose, Dipstick Normal (Normal); Ketone-Dipstick Negative (Negative); Leukocyte Esterase-Dipstick 25 /ul (Negative); Nitrite-Dipstick Negative (Negative); Occult Blood-Urine 10 /ul (Negative); Protein-Dipstick Negative (Negative); Urine Bilirubin Dipstick Negative (Negative); Urine Clarity Sl. Cloudy (Clear); Urine Urobilinogen Normal (Normal)
[2021-03-07 12:14] VITALS: BP 125/69; PULSE 60; RESP 18; O2SAT 99
[2021-03-07 12:20] LABS: Bacteria RARE /hpf (None Seen); Red Blood Cells-Urine 0-5 SEEN /hpf (0-5); Squamous Epithelial Cells - UA 0-5 SEEN /hpf (5-10); White Blood Cells 0-5 SEEN /hpf (0-5)
[2021-03-07] MEDS: 0.9% Saline Lock 10 ML Syringe IV (13:33)
== END 2021-03-07 13:37 | disposition home or self-care (01) ==
PROVIDERS: Emergency Provider Emergency Medicine; PCP Nurse Practitioner
DX: R10.9 Unspecified abdominal pain (principal); I25.10 Atherosclerotic heart disease of native coronary artery without angina pectoris; I10 Essential (primary) hypertension; I25.2 Old myocardial infarction; Z90.49 Acquired absence of other specified parts of digestive tract; Z79.02 Long term (current) use of antithrombotics/antiplatelets; Z79.899 Other long term (current) drug therapy; Z79.82 Long term (current) use of aspirin
CPT/HCPCS: 36591; 74176; 80048; 81001; 85025; 96361; 96374; 96375; 99284; J7030; A4216; J2405

== ENCOUNTER → 2021-05-20 13:34 | Outpatient (CLI) | payer MEDICARE, OTHER, SELFPAY ==
[2021-05-20 15:20] LABS: AST(SGOT) 18 U/L (15-37); Alanine Aminotransfer ALT/SGPT 32 U/L (13-56); Albumin, Serum 3.5 g/dL (3.2-5.0); Alkaline Phosphatase 95 U/L (45-117); Bilirubin, Direct 0.09 mg/dL (0.00-0.30); Cholesterol 109 mg/dL (200); Globulin 2.7 g/dL (2.2-4.2); High Density Lipoprotein 36 mg/dL; Protein, Total 6.2 g/dL (6.4-8.2); Triglycerides 164 mg/dL; Very Low Density Lipoprotein 33 mg/dL (5-40)
== END ==
PROVIDERS: PCP Nurse Practitioner; Referring Provider Internal Medicine Cardiovascular Disease; Visit Provider Internal Medicine Cardiovascular Disease
DX: K85.90 Acute pancreatitis without necrosis or infection, unspecified (principal); E78.5 Hyperlipidemia, unspecified
CPT/HCPCS: 36415; 80061; 80076

== ENCOUNTER → 2021-10-28 | Outpatient (CLI) | payer MEDICARE, OTHER, SELFPAY ==
--- NOTE | 2021-10-28 13:10 | BI_ITS ---
MAMMOGRAPHY - BILATERAL SCREENING REASON FOR EXAM: Female, 81 years old. Routine annual screening examination. PERTINENT HISTORY: Sister with breast cancer. TECHNIQUE: Digital bilateral breast zari (3D mammographic acquisition) in the CC and MLO projections. 2-D mediolateral oblique (MLO) and craniocaudad (CC) views of both breasts were obtained. CAD: Full Field Digital Mammography with Computer Added Detection was performed. COMPARISON: Comparison is made with prior study dated 06/04/2020 and 05/09/2019. FINDINGS: Breast Composition: There are scattered areas of fibroglandular density. There are no dominant masses or suspicious calcifications. No other significant abnormalities are identified. There has been no significant change since the prior study. BI/SCRN MAMM (CAD)W/ZARI BILAT IMPRESSION: Stable bilateral screening mammogram. Yearly follow-up mammogram recommended. (A) ASSESSMENT CATEGORY: BIRADS Category 1: Negative. A letter regarding these results will be sent to the patient by the facility within 30 days. Approximately 10% of breast cancers are not detected by mammography. A normal mammogram should not delay biopsy of a clinically suspicious abnormality. [id number] Electronically Signed: Mk Burch MD at 13:51 EDT ,
== END | disposition home or self-care (01) ==
LOC: OPBI 13:08
PROVIDERS: PCP Nurse Practitioner; Visit Provider Internal Medicine Hematology & Oncology
DX: Z12.31 Encounter for screening mammogram for malignant neoplasm of breast (principal); Z80.3 Family history of malignant neoplasm of breast
CPT/HCPCS: 77063; 77067

== ENCOUNTER → 2022-03-23 | Outpatient (CLI) | payer MEDICARE, OTHER, SELFPAY ==
--- NOTE | 2022-03-23 10:17 | STRESSREP ---
Stress Test Report Exercise myocardial perfusion stress test. 81-year-old lady with a history of coronary artery disease. Stress protocol: Resting EKG demonstrates sinus rhythm with a rate of 65 bpm normal intervals are noted resting blood pressure is 142/78 mmHg. The patient exercised according to regular Kenroy protocol for total duration of 3 minutes and 35 seconds completing 35 seconds into stage II of the Kenroy protocol the maximum heart rate attained was 153 bpm which was 109% of max impacted heart rate the maximum workload was 6 metabolic equivalents. At rest there were no ST or T wave changes noted suggest ischemia and at peak exercise upsloping ST changes were noted with did not meet the criteria for ischemia. The peak blood pressure was 160/90 mmHg the test was terminated due to the target heart rate being achieved and dyspnea and fatigue. Myocardial perfusion protocol. 11.5 mCi of technetium 99m sestamibi was injected at rest. The patient exercised according to regular Kenroy protocol for total duration of 3-1/2 minutes. At peak exercise 33.2 mCi of technetium 99m sestamibi was injected stress images were obtained stress and rest images were reconstructed and compared in the short axis vertical long and horizontal long axis. Gated images were also obtained. Perfusion SPECT analysis: Review of the stress images demonstrate normal uptake of tracer noted in all areas of the myocardium. The resting images similar demonstrate normal uptake of tracer noted in all areas of the myocardium. No areas of reversibility are noted to suggest ischemia and no previous infarct is noted. Gated SPECT analysis: The gated ejection fraction is noted to be 68%. Conclusion: Normal exercise myocardial perfusion stress test at a moderate workload. Preserved ejection fraction.
== END | disposition home or self-care (01) ==
LOC: CVS 06:45
PROVIDERS: PCP Internal Medicine; Referring Provider Nurse Practitioner Family; Visit Provider Nurse Practitioner Family
DX: I25.10 Atherosclerotic heart disease of native coronary artery without angina pectoris (principal); I25.2 Old myocardial infarction; E78.5 Hyperlipidemia, unspecified; Z95.5 Presence of coronary angioplasty implant and graft
CPT/HCPCS: 78452; 93017; A9500; A4216

== ENCOUNTER → 2022-09-23 | Outpatient (CLI) | payer MEDICARE, OTHER, SELFPAY ==
[2022-09-23 09:03] LABS: AST(SGOT) 29 U/L (15-37); Alanine Aminotransfer ALT/SGPT 48 U/L (13-56); Albumin, Serum 3.5 g/dL (3.2-5.0); Alkaline Phosphatase 88 U/L (45-117); Bilirubin, Direct 0.16 mg/dL (0.00-0.30); Cholesterol 120 mg/dL (200); Globulin 2.4 g/dL (2.2-4.2); High Density Lipoprotein 60 mg/dL; Protein, Total 5.9 g/dL (6.4-8.2); Triglycerides 52 mg/dL; Very Low Density Lipoprotein 10 mg/dL (5-40)
== END | disposition home or self-care (01) ==
LOC: PAVLAB 08:27
PROVIDERS: PCP Internal Medicine; Referring Provider Nurse Practitioner Family; Visit Provider Nurse Practitioner Family
DX: E78.00 Pure hypercholesterolemia, unspecified (principal)
CPT/HCPCS: 36415; 80061; 80076

== ENCOUNTER → 2022-11-03 | Outpatient (CLI) | payer MEDICARE, OTHER, SELFPAY ==
--- NOTE | 2022-11-03 09:23 | BI_ITS ---
MAMMOGRAPHY - BILATERAL SCREENING REASON FOR EXAM: Female, 82 years old. Routine annual screening examination. PERTINENT HISTORY: Sister with breast cancer. TECHNIQUE: Digital bilateral breast zari (3D mammographic acquisition) in the CC and MLO projections. 2-D mediolateral oblique (MLO) and craniocaudad (CC) views of both breasts were obtained. CAD: Full Field Digital Mammography with Computer Added Detection was performed. COMPARISON: Comparison is made with prior study dated October 28, 2021 and June 04, 2020. FINDINGS: Breast Composition: There are scattered areas of fibroglandular density. There are no dominant masses or suspicious calcifications. Stable bilateral secretory calcifications. No other significant abnormalities are identified. There has been no significant change since the prior study. BI/SCRN MAMM (CAD)W/ZARI BILAT IMPRESSION: Stable bilateral screening mammogram. Yearly follow-up mammogram recommended. (A) ASSESSMENT CATEGORY: BIRADS Category 2: Benign. A letter regarding these results will be sent to the patient by the facility within 30 days. Approximately 10% of breast cancers are not detected by mammography. A normal mammogram should not delay biopsy of a clinically suspicious abnormality. [id number] Electronically Signed: Mk Burch MD at 10:49 EDT ,
--- NOTE | 2022-11-03 09:29 | BD_ITS ---
STUDY: DUAL ENERGY X-RAY ABSORPTIOMETRY / DXA REASON FOR EXAM: Female, 82 years old. 627.8Menopausal postmenopausalBONE DENSITY REASON FOR EXAM TECHNIQUE: Bone Mineral Density (BMD) measurements of lumbar spine and bilateral hips were obtained. COMPARISON: Comparison is made with prior study dated May 09, 2019. FINDINGS: Lumbar Spine (L1-L4): g/cm2 (1.000) / T-score (-0.2) / Z-score (2.5) Findings are suggestive of normal bone density with a low fracture risk. Left Femur Total: g/cm2 (0.777) / T-score (-1.4) / Z-score (0.8) Left Femoral Neck: g/cm2 (0.580) / T-score (-2.4) / Z-score (-0.1) Right Femur Total: g/cm2 (0.705) / T-score (-1.9) / Z-score (0.2) Right Femoral Neck: g/cm2 (0.520) / T-score (-3.0) / Z-score (-0.6) The T-Scores on the most recent prior examination were: Lumbar Spine (L1-L4): There has been improvement of bone density since the previous examination. Left Femur Total: which represents an improvement of 1.9%. Right Femur Total: which represents an improvement of 0.4%. BD/Dexa Bone Density Study IMPRESSION: The patient is considered osteoporotic as outlined below according to World Rex Organization (WHO) criteria with a high fracture risk. There has been improvement of bone density since the previous examination. Reference Information: The T-score is the number of standard deviations above or below the standard which is normal for young adults at their peak bone mineral density. The World Health Organization (WHO) interprets the T-scores as follows: Above -1 Normal bone density Between -1 and -2.5 Osteopenia Equal to / or below -2.5 Osteoporosis As a practical clinical guideline, osteopenia may be graded as follows: Mild -1 through -1.5 Moderate -1.6 through -2.0 Severe -2.1 through -2.4 The Z-score is the number of standard deviations above or below age-matched controls. A Z-score of less than -1.5 would be considered abnormal. References: 1. NIH Osteoporosis and Related Bone Diseases www osteo.org 2. International Society for Clinical Densitometry www iscd.org 3. National Osteoporosis Foundation www nof.org Electronically Signed: Mk Burch MD at 9:25 EDT ,
== END | disposition home or self-care (01) ==
LOC: OPBD 09:22
PROVIDERS: PCP Internal Medicine; Referring Provider Internal Medicine; Visit Provider Internal Medicine
DX: Z78.0 Asymptomatic menopausal state (principal); Z12.31 Encounter for screening mammogram for malignant neoplasm of breast
CPT/HCPCS: 77063; 77067; 77080

== ENCOUNTER → 2023-05-19 | Outpatient (CLI) | payer MEDICARE, OTHER, SELFPAY ==
--- NOTE | 2023-05-19 07:58 | MRI_ITS ---
EXAM: MR HEAD WITHOUT AND WITH INTRAVENOUS CONTRAST CLINICAL INDICATION: r/o bleed; high risk medication use -- TECHNIQUE: Multiplanar and multisequence MR images of the brain were obtained without and with intravenous contrast. CONTRAST: 12 mL of IV Clariscan. COMPARISON: No relevant prior studies available. FINDINGS: BRAIN AND EXTRA-AXIAL SPACES: Small subcortical white matter T2 FLAIR hyperintensity foci in both cerebral hemispheres and in both forceps major are chronic white matter ischemic changes. No enhancing lesions intra-axially and extra-axially. No diffusion restriction to suspect acute or subacute infarct. The brain parenchyma. No intra- or extra-axial hemorrhage. No intracranial mass or mass effect. Posterior fossa structures are unremarkable. Ventricles are appropriate for age. No hydrocephalus. Basal cisterns are patent. SELLA: Unremarkable. Normal sella turcica, pituitary gland, infundibular stalk, optic chiasm and hypothalamus. AUDITORY SYSTEM: Unremarkable. The internal auditory canals are patent. BONES/JOINTS: Unremarkable. No discrete lytic or blastic abnormalities. SINUSES: Unremarkable as visualized. Clear. MASTOID AIR CELLS: Unremarkable as visualized. Clear. ORBITS: Unremarkable as visualized. Both globes, extraocular muscles, optic nerves and retrobulbar fat appear unremarkable. VASCULATURE: Unremarkable as visualized. Normal flow voids in the major intracranial circulation. MRI/Brain W/WO Contrast IMPRESSION: 1. No MRI evidence of recent or remote intracranial bleeding. 2. No abnormal enhancing lesions intra-axially and extra-axially. 3. Chronic white matter ischemic changes in both cerebral hemispheres. Electronically Signed: Tremaine Dobson MD at 9:47 EST ,
== END | disposition home or self-care (01) ==
LOC: MRI 07:55
PROVIDERS: PCP Internal Medicine; Referring Provider Nurse Practitioner Family; Visit Provider Nurse Practitioner Family
DX: Z79.899 Other long term (current) drug therapy (principal)
CPT/HCPCS: 70553; A9575

== ENCOUNTER 2023-08-23 12:09 | Emergency (ER) | payer MEDICARE, OTHER, SELFPAY ==
[2023-08-23 12:09] VITALS: BP 124/100; PULSE 78; RESP 16; TEMP 36.2; O2SAT 96; BMI 23.6
--- NOTE | 2023-08-23 12:24 | EDS_ITS ---
HPI History of Present Illness Chief Complaint: Upper Extremity Injury Informant: patient Onset/Context/Timing Onset: Yesterday Narrative Narrative: Patient presents secondary to left wrist injury. She was scrubbing her bathtub yesterday with her right hand and using her left hand to support herself. She now has pain and swelling around the left wrist. She does have a history of osteoporosis. She did take aspirin prior to arrival but states her oncologist told her she should be taking Tylenol. [facility] Medical History Acute bronchitis, unspecified Anemia Arteriosclerosis of coronary artery in patient with history of myocardial infarction bilateral ankle surgery Claustrophobia CLL (chronic lymphocytic leukemia) Compression fracture Dizziness Encounter for education excess ankle bone removal High risk medication use History of claustrophobia History of pneumonia History of urinary tract infection Hypertension Measles Mumps Osteopenia PORT PLACEMENT Thrombocytopenia varicose veins Home Medications calcium carbonate 500 mg calcium (1,250 mg) tablet 1 tab PO DAILY supplement 12/01/17 [History Last Taken 12/28/19 09:00] lidocaine-prilocaine 2.5 %-2.5 % topical cream 1 applicatio TP DAILY PRN PRN Not Specified 30 days #1 tube 11/09/19 [Rx Last Taken Unknown] acetaminophen 325 mg tablet 650 mg (2 x 325 mg) PO Q6H PRN PRN Pain Score 1-3/10 12/20/19 [Rx Last Taken 12/28/19 09:00] aspirin 81 mg chewable tablet 81 mg PO DAILY@0800 12/20/19 [Rx Last Taken 12/28/19] denosumab 60 mg/mL subcutaneous syringe (Prolia) 60 mg subcut [id number] 10/09/20 [History Last Taken Unknown] lutein 20 mg capsule 20 mg PO DAILY 08/05/22 [History Last Taken Unknown] multivitamin 1 tab PO DAILY supplement 09/21/22 [History Last Taken Unknown] sulfamethoxazole 400 mg-trimethoprim 80 mg tablet (Bactrim) 1 tab PO .COMPLEX #60 tabs 12/17/22 [Rx Last Taken Unknown] atorvastatin 20 mg tablet 20 mg PO QHS #90 tabs 02/04/23 [Rx Last Taken Unknown] lisinopril 10 mg tablet 10 mg PO DAILY #90 tabs 02/04/23 [Rx Last Taken Unknown] carvedilol 3.125 mg tablet 3.125 mg PO BID 03/16/23 [History Last Taken Unknown] lorazepam 0.5 mg tablet 0.5 mg PO ONCE Anxiety #1 TAB 05/13/23 [Rx Last Taken Unknown] zanubrutinib 80 mg capsule 320 mg (4 x 80 mg) PO DAILY 31 days #124 caps 08/05/23 [Rx Last Taken Unknown] Allergy/AdvReac Type Severity Reaction Status Date / Time pollen extracts AdvReac Mild Other Verified 08/23/23 12:12 Family History Father Lung cancer Mother CVA (cerebral vascular accident) Son Waldenstrom's disease Daughter Leukemia Surgical History History of cataract extraction (~05/2022) History of cholecystectomy History of foot surgery Stented coronary artery (12/19/19) Social History household members: children and other details: friend of the family housing: house Smoking Status: Never smoker alcohol intake: never substance use type: does not use caffeine: Yes Type: coffee Number of servings: 2 what type of physical activity do you participate in: walking frequency: 1-2 times per week duration: 30-45 minutes/day annika/congregational: Sabianism seatbelt use: always do you feel safe at home: Yes ROS ROS ED Constitutional Constitutional ED: Denies chills or fever(s) Eyes Eyes: Denies change in vision or discharge from eye(s) ENT ENT ED: Denies discharge from eye(s), rhinorrhea or sore throat Cardiovascular Cardiovascular: Denies chest pain Respiratory/Chest Respiratory/Chest: Denies cough or dyspnea Gastrointestinal Gastrointestinal: Denies abdominal pain, nausea or vomiting Genitourinary Genitourinary ED: Denies dysuria Musculoskeletal Musculoskeletal: Reports extremity pain; Denies back pain Integumentary Denies Abrasions or rash Neurologic Neurologic: Denies paresthesias Psychiatric Psychiatric: Denies anxiety or depression Allergic/Immunologic Allergic/Immunologic ED: Denies lip swelling or urticaria EXAM Physical Exam Const Vital Signs: 08/23/23 12:09 08/23/23 12:09 Temperature 97.1 F L 97.1 F L Temperature Source Oral Temporal Pulse Rate 78 78 Respiratory Rate 16 16 Blood Pressure 124/100 H 124/100 H Blood Pressure Mean 108 108 Pulse Ox 96 96 Oxygen Delivery Method Room Air Room Air Positive well nourished and well developed General Appearance ED: well developed HEENT Reports moist mucous membranes Neck supple Chest Wall inspection of chest normal and palpation of chest normal Resp normal respiratory effort and clear to auscultation bilaterally Cardio regular rate and regular rhythm GI non-tender Extremity Extremity Narrative: Mild edema with minimal erythema noted to the left wrist. Decreased range of motion secondary to pain. Good cap refill and sensation distally. No tenderness at the elbow or shoulder. Neuro oriented x3 MDM MDM MDM Narrative Medical decision making narrative: Patient is given a dose of Tylenol here. Left wrist x-rays obtained to evaluate for potential fracture given her osteopenia. 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 Electronically Signed: Rick Newton MD at 12:45 EDT Reading Location ID and State: [facility] / [place] , Service support , Treatment and Re-Evaluation Narrative: Left wrist x-rays per my interpretation reveal chronic changes with osteoporos is. No obvious fracture. Radiology interpretation reviewed and agrees. On repeat evaluation patient states her pain is significantly improved with Tylenol. Brent wrap is applied to the left wrist. I do not see signs of acute infection. I do believe her pain and swelling are secondary to wrist sprain. She will continue supportive care at home and return instructions were provided. Discharge Plan Triage Chief Complaint: Upper Extremity Injury ED Provider: Rosa Sales Dx/Rx/DC Orders Clinical Impression: Left wrist sprain Instructions: ED Wrist Sprain Prescriptions: No Action Prolia 60 mg/mL syringe 60 mg subcut [id number] carvedilol 3.125 mg tablet 3.125 mg PO BID Rx Instructions: must administer with a meal/food lutein 20 mg capsule 20 mg PO DAILY Rx Instructions: give with meal/snack calcium carbonate 500 MG tablet 1 tab PO DAILY Rx Instructions: 600 MG EACH lidocaine-prilocaine 30 GM cream 1 applicatio TP DAILY PRN PRN (Reason: Not Specified) 30 Days Qty: 1 2RF acetaminophen 325 MG tablet 650 mg PO Q6H PRN PRN (Reason: Pain Score 1-3/10) 0RF aspirin 81 MG tablet,chewable 81 mg PO DAILY@0800 0RF multivitamin Tablet 1 tab PO DAILY sulfamethoxazole-trimethoprim [Bactrim] 400-80 mg tablet 1 tab PO .COMPLEX Qty: 60 2RF Rx Instructions: On mondays, wednesdays and Fridays ONLY 1 TAB orally; atorvastatin 20 mg tablet 20 mg PO QHS Qty: 90 3RF lisinopril 10 mg tablet 10 mg PO DAILY Qty: 90 3RF lorazepam 0.5 mg tablet 0.5 mg PO ONCE Qty: 1 0RF zanubrutinib 80 mg capsule 320 mg PO DAILY 31 Days Qty: 124 0RF Primary Care Provider: Joie Diaz Referrals: Joie Diaz DO [Primary Care Provider] - 1 Week if not improving Disposition Disposition: Home, Self Care
--- NOTE | 2023-08-23 12:29 | RAD_ITS ---
STUDY: X-RAY - LEFT WRIST REASON FOR EXAM: Female, 83 years old. Injury. TECHNIQUE: 3 views of the left wrist were obtained. COMPARISON: None. FINDINGS: Normal visualized distal radius and ulna. Normal radiocarpal articulation. Normal distal radioulnar articulation. Intact carpal bones. There is mild degenerative arthrosis at the triscaphe joint. There is mild degenerative arthrosis at the carpometacarpal articulation of the thumb. Normal second through fifth carpometacarpal articulations. Normal visualized metacarpal bones. The soft tissue structures are unremarkable. There is no demonstrated acute fracture. 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 Electronically Signed: Rick Newton MD at 12:45 EDT ,
[2023-08-23] MEDS: Acetaminophen 500 MG Tablet 1000 MG PO (12:34)
[2023-08-23 14:01] VITALS: BP 118/92; PULSE 75; RESP 16; TEMP 36.8; O2SAT 97
== END 2023-08-23 14:02 | disposition home or self-care (01) ==
PROVIDERS: Emergency Provider Emergency Medicine; PCP Internal Medicine; Visit Provider Emergency Medicine
DX: S63.92XA Sprain of unspecified part of left wrist and hand, initial encounter (principal); I25.10 Atherosclerotic heart disease of native coronary artery without angina pectoris; X58.XXXA Exposure to other specified factors, initial encounter
CPT/HCPCS: 73110; 99282

== ENCOUNTER → 2023-11-05 | Outpatient (CLI) | payer MEDICARE, OTHER, SELFPAY ==
--- NOTE | 2023-11-05 10:16 | BI_ITS ---
MAMMOGRAPHY - BILATERAL SCREENING REASON FOR EXAM: Female, 83 years old. Routine annual screening examination. PERTINENT HISTORY: Sister with breast cancer. TECHNIQUE: Digital bilateral breast zari (3D mammographic acquisition) in the CC and MLO projections. 2-D mediolateral oblique (MLO) and craniocaudad (CC) views of both breasts were obtained. CAD: Full Field Digital Mammography with Computer Added Detection was performed. COMPARISON: Comparison is made with prior study dated November 03, 2022 and October 28, 2021. FINDINGS: Breast Composition: There are scattered areas of fibroglandular density. There are no dominant masses or suspicious calcifications. Stable bilateral secretory calcifications. No other significant abnormalities are identified. There has been no significant change since the prior study. BI/SCRN MAMM (CAD)W/ZARI BILAT IMPRESSION: Stable bilateral screening mammogram. Yearly follow-up mammogram recommended. (A) ASSESSMENT CATEGORY: BIRADS Category 2: Benign. A letter regarding these results will be sent to the patient by the facility within 30 days. Approximately 10% of breast cancers are not detected by mammography. A normal mammogram should not delay biopsy of a clinically suspicious abnormality. [id number] Electronically Signed: Mk Burch MD at 11:13 EDT ,
== END | disposition home or self-care (01) ==
LOC: OPBI 10:15
PROVIDERS: PCP Internal Medicine; Referring Provider Internal Medicine Hematology & Oncology; Visit Provider Internal Medicine Hematology & Oncology
DX: Z12.31 Encounter for screening mammogram for malignant neoplasm of breast (principal)
CPT/HCPCS: 77063; 77067

== ENCOUNTER → 2024-11-06 | Outpatient (CLI) | payer MEDICARE, OTHER, SELFPAY ==
--- NOTE | 2024-11-06 09:45 | BI_ITS ---
EXAM: SCRN MAMM (CAD)W/ZARI BILAT DATE: 11/06/2024 CLINICAL HISTORY: F, Age 84 y/o , POST MENOPAUSAL SCREENING Sister with breast cancer. BREAST CANCER RISK ASSESSMENT: Not assessed TECHNIQUE: Bilateral screening digital breast tomosynthesis with 2D and 3D images. Computer aided detection. COMPARISON: Prior exam(s) dated November 05, 2023.. FINDINGS: TISSUE DENSITY: The breast tissue is composed of scattered areas of fibroglandular density. Bilateral Breast Mammographic Findings: No significant masses, calcifications or other abnormalities are identified. Stable bilateral secretory calcifications. No suspicious masses, areas of developing architectural distortion, or suspicious calcifications. There has been no significant interval change. BI/SCRN MAMM (CAD)W/ZARI BILAT IMPRESSION: OVERALL FINAL ASSESSMENT: BIRADS 2 BENIGN FINDING RECOMMENDATION: Routine annual follow-up in 1 Year A letter with findings and recommendations will be mailed to the patient. Reading Location: [place] [id number]
== END | disposition home or self-care (01) ==
LOC: OPBI 08:46
PROVIDERS: PCP Internal Medicine; Referring Provider Internal Medicine Hematology & Oncology; Visit Provider Internal Medicine Hematology & Oncology
DX: Z12.31 Encounter for screening mammogram for malignant neoplasm of breast (principal)
CPT/HCPCS: 77063; 77067

== ENCOUNTER → 2024-11-09 | Outpatient (CLI) | payer MEDICARE, OTHER, SELFPAY ==
--- NOTE | 2024-11-09 11:56 | BD_ITS ---
PROCEDURE: DEXA BONE DENSITY STUDY 11/09/2024 REASON FOR EXAM: F, age 84 y/o . Postmenopausal. TECHNIQUE: DEXA BONE DENSITY STUDY COMPARISON: Prior study dated November 03, 2022. FINDINGS: BMD and T-SCORES Lumbar spine: 1.103 g/cm2, T-score 0.8 Levels: L1 through L4 Change from prior: Improved by 10.2%. Left femoral neck: 0.563 g/cm2, T-score -2.6 Femoral neck comparison data not recommended for monitoring change. Left total hip: 0.783 g/cm2, T-score -1.3 Change from prior: Improved by 0.8%. Right femoral neck: 0.557 g/cm2, T-score -2.6 Femoral neck comparison data not recommended for monitoring change. Right total hip: 0.730 g/cm2, T-score -1.6 Change from prior: Improved by 3.6%. The World Health Organization has defined the following categories based on bone density: Normal bone density: T-score equal to or greater than -1.0 Osteopenia: T-score between -1.0 and -2.5 Osteoporosis: T-score equal to or less than -2.5 The patient does meet the pharmacological treatment recommendations for prevention of osteoporosis. BD/Dexa Bone Density Study IMPRESSION: OSTEOPOROSIS. Recommend follow-up as clinically warranted. Reading Location: [place] [address]
== END | disposition home or self-care (01) ==
LOC: OPBD 11:54
PROVIDERS: PCP Internal Medicine; Referring Provider Internal Medicine; Visit Provider Internal Medicine
DX: Z13.820 Encounter for screening for osteoporosis (principal); Z78.0 Asymptomatic menopausal state
CPT/HCPCS: 77080

== ENCOUNTER 2024-11-15 16:30 | Emergency (ER) | payer MEDICARE, OTHER, SELFPAY ==
[2024-11-15 16:30] VITALS: BP 135/76; PULSE 72; RESP 16; TEMP 36.1; O2SAT 96; BMI 23.5
--- NOTE | 2024-11-15 20:54 | ED.VIS.LOWEX ---
HPI History of Present Illness Chief Complaint: Lower Extremity Injury Informant: patient Narrative Narrative: Patient is an 84-year-old female with a history of CLL,, cytopenia, CHF and osteopenia presenting with atraumatic right hip pain. Patient states she was at home with her son. Yesterday she was trying to pull down some windows and really exerting herself with this. She denies any injury at this time however after that she has gone on to develop relatively severe right hip pain. States it is in the back of her hip. It is worse with certain movements or when she changes positions from sitting to standing or laying down to sitting. Sometimes the pain does radiate down her leg. She denies any numbness or tingling. She denies any urinary symptoms. She has taken Tylenol with minimal relief of her symptoms. She notes that in the past she has had 2 prior episodes when she was walking after getting out of bed and her hip just felt loose. She is not sure if this is related. She states she is also to take NSAIDs because of her medications and her CLL. No other complaints or concerns reported at this time. [facility] Medical History History of claustrophobia Claustrophobia High risk medication use Dizziness Encounter for education Acute bronchitis, unspecified excess ankle bone removal Osteopenia Arteriosclerosis of coronary artery in patient with history of myocardial infarction [employer] Thrombocytopenia Anemia Compression fracture History of urinary tract infection bilateral ankle surgery Mumps Measles varicose veins History of pneumonia Hypertension CLL (chronic lymphocytic leukemia) Home Medications ?Medication ?Instructions ?Recorded ?Last Taken ?Type calcium carbonate 1 tab PO DAILY supplement 12/01/17 12/28/19 09:00 History lidocaine-prilocaine 2.5 %-2.5 % 1 applicatio TP DAILY PRN PRN Not 11/09/19 Unknown Rx topical cream Specified 30 days #1 tube acetaminophen 325 mg tablet 650 mg (2 x 325 mg) PO Q6H PRN PRN 12/20/19 12/28/19 09:00 Rx Pain Score 1-3/10 aspirin 81 mg chewable tablet 81 mg PO DAILY@0800 12/20/19 12/28/19 Rx denosumab 60 mg/mL subcutaneous 60 mg subcut [id number] 10/09/20 Unknown History syringe (Prolia) lutein 20 mg capsule 20 mg PO DAILY 08/05/22 Unknown History multivitamin 1 tab PO DAILY supplement 09/21/22 Unknown History lorazepam 0.5 mg tablet 0.5 mg PO ONCE Anxiety #1 TAB 05/13/23 Unknown Rx zanubrutinib 80 mg capsule 320 mg (4 x 80 mg) PO DAILY 31 08/25/23 Unknown Rx days #124 caps carvedilol 3.125 mg tablet 3.125 mg PO BID #180 tabs 02/18/24 Unknown Rx lisinopril 10 mg tablet 10 mg PO BID #180 tabs 03/21/24 Unknown Rx atorvastatin 20 mg tablet 20 mg PO QHS #90 TABLETS 05/15/24 Unknown Rx cholecalciferol (vitamin D3) 50 50 mcg PO QDAY 09/12/24 Unknown History mcg (2,000 unit) capsule sulfamethoxazole 400 1 tab PO 3XW #36 TABLETS 11/09/24 Unknown Rx mg-trimethoprim 80 mg tablet hydrocodone-acetaminophen 5-325mg 1 tab PO Q8H PRN pain 3 days #10 11/15/24 Unknown Rx 5mg-325mg tabs prednisone 20 mg tablet 40 mg (2 x 20 mg) PO DAILY #10 tabs 11/15/24 Unknown Rx Allergy/AdvReac Type Severity Reaction Status Date / Time pollen extracts AdvReac Mild Other Verified 11/15/24 16:34 Family History Father Lung cancer Mother CVA (cerebral vascular accident) Son Waldenstrom's disease Daughter Leukemia Surgical History History of cataract extraction (~05/2022) History of cholecystectomy Stented coronary artery (12/19/19) History of foot surgery Social History household members: children and other details: friend of the family housing: house Smoking Status: Never smoker alcohol intake: never substance use type: does not use caffeine: Yes Type: coffee Number of servings: 2 what type of physical activity do you participate in: walking frequency: 1-2 times per week duration: 30-45 minutes/day annika/baptism: [employer]ism seatbelt use: always do you feel safe at home: Yes ROS ROS ED Constitutional Constitutional ED: Denies chills or fever(s) Gastrointestinal Gastrointestinal: Denies abdominal pain Genitourinary Genitourinary ED: Denies dysuria or hematuria Musculoskeletal Musculoskeletal: Reports other Details: right hip pain Integumentary Denies Abrasions or rash Neurologic Neurologic: Denies paresthesias or weakness Hematologic/Lymphatic Hematologic/Lymphatic: Reports easy bleeding and easy bruising EXAM Physical Exam Const Vital Signs: 11/15/24 16:30 11/15/24 21:05 Temperature 97 F L Temperature Source Temporal Pulse Rate 72 61 Respiratory Rate 16 16 Blood Pressure 135/76 H 150/71 H Blood Pressure Mean 95 97 Pulse Ox 96 Oxygen Delivery Method Room Air Positive well nourished and well developed General Appearance ED: well developed and NAD HEENT Reports moist mucous membranes Neck full ROM and supple Chest Wall inspection of chest normal and palpation of chest normal Resp normal respiratory effort and clear to auscultation bilaterally Cardio regular rate and regular rhythm Cardio Narrative: 2+ DP pulses GI non-tender, non-distended and no masses Back/Spine no CVA tenderness Thoracic Spine / Upper Back: Negative for thoracic spinal tenderness Lumbar Spine / Lower Back: straight leg raise negative bilaterally; Negative for lumbar spinal tenderness Extremity normal to inspection Extremity Narrative: No obvious deformity of extremities. Only minimal pain with range of motion of the right hip. Is not highly reproducible with palpation or range of motion. Neuro oriented x3, moves all extremities and no sensory deficits noted Sensorium / Orientation: alert Motor Exam: strength 5/5 throughout Psych mental status grossly normal Skin no wounds Rashes: no rashes MDM MDM MDM Narrative Medical decision making narrative: Patient is evaluated for atraumatic right hip pain. Seems to have almost a spasms of pain but I have a hard time reproducible in the ER. She does not have significant pain with range of motion of her hip. She has good distal pulses. Differential includes hip strain, bursitis, occult fracture. Lower suspicion for acute vascular abnormality. No overlying rash consistent with shingles. As she has negative straight leg test and lower suspicion for sciatica however it is possible she could have some type of lumbar radiculopathy as well. Patient given a dose of [place] with significant proving of her pain in the emergency room. She is able to ambulate. X-ray of the right hip as well as pelvis reviewed by myself as well as radiology shows degenerative osteoarthrosis but no other acute process. Patient be started on a burst of steroids given that she cannot have NSAIDs and given a short course of [place] for breakthrough pain. Otherwise she can take Tylenol for pain. Patient and son feel comfortable with this plan. Patient discharged home in stable condition. Radiography Diagnostic Testing: Clinical Impression(s) from Imaging Studies Hip/Pelvis X-Ray 11/15/24 21:12 IMPRESSION: DEGENERATIVE OSTEOARTHROSIS. NO ACUTE FINDINGS. Reading Location: [facility] Discharge Plan Triage Chief Complaint: Lower Extremity Injury ED Provider: Lita Sosa Dx/Rx/DC Orders Clinical Impression: Strain of right hip Instructions: ED Hip Strain Prescriptions: New prednisone 20 mg tablet 40 mg PO DAILY Qty: 10 0RF hydrocodone-acetaminophen 5-325 mg tablet 1 tab PO Q8H PRN (Reason: pain) 3 Days Qty: 10 0RF No Action Prolia 60 mg/mL syringe 60 mg subcut [id number] lutein 20 mg capsule 20 mg PO DAILY Rx Instructions: give with meal/snack lisinopril 10 mg tablet 10 mg PO BID Qty: 180 3RF cholecalciferol (vitamin D3) 50 mcg (2,000 unit) capsule 50 mcg PO QDAY calcium carbonate 500 MG tablet 1 tab PO DAILY Rx Instructions: 600 MG EACH lidocaine-prilocaine 30 GM cream 1 applicatio TP DAILY PRN PRN (Reason: Not Specified) 30 Days Qty: 1 2RF acetaminophen 325 MG tablet 650 mg PO Q6H PRN PRN (Reason: Pain Score 1-3/10) 0RF aspirin 81 MG tablet,chewable 81 mg PO DAILY@0800 0RF multivitamin Tablet 1 tab PO DAILY lorazepam 0.5 mg tablet 0.5 mg PO ONCE Qty: 1 0RF zanubrutinib 80 mg capsule 320 mg PO DAILY 31 Days Qty: 124 12RF carvedilol 3.125 mg tablet 3.125 mg PO BID Qty: 180 3RF Rx Instructions: must administer with a meal/food atorvastatin 20 mg tablet 20 mg PO QHS Qty: 90 3RF sulfamethoxazole-trimethoprim 400-80 mg tablet 1 tab PO 3XW Qty: 36 0RF Primary Care Provider: Joie Diaz Referrals: Joie Diaz DO [Primary Care Provider] - Activity Restrictions/Additional Instructions: Your x-ray showed for chronic degenerative changes of the hip consistent with arthritis. It is possible you strained a muscle in your hip or you have some irritation of the nerve that runs through your hip. You been put on a small course of prednisone to help with this and been given a prescription for [place] for breakthrough severe pain. The [place] can cause constipation as well as confusion so please be careful when taking it. Otherwise continue to take Tylenol regularly for pain. Print Language: Tongan Disposition Disposition: Home, Self Care
[2024-11-15] MEDS: HYDROcodone Bitartrate/Apap 5/325 Tablet PO (21:04)
[2024-11-15 21:05] VITALS: BP 150/71; PULSE 61; RESP 16
--- NOTE | 2024-11-15 21:12 | RAD_ITS ---
PROCEDURE: HIP, UNI W/ PELVIS 2-3 VIEWS 11/15/2024 REASON FOR EXAM: PAIN TECHNIQUE: HIP, UNI W/ PELVIS 2-3 VIEWS COMPARISON: None. FINDINGS: Bones: Diffuse demineralization. No obvious acute fracture. No aggressive osseous lesions. Joints: Normal alignment. Moderate bilateral hip arthrosis and severe degenerative changes of the pubic symphysis. Soft tissues: Soft tissues are unremarkable. Other: The visualized bowel loops are nondilated. RAD/HIP, UNI W/ Pelvis 2-3 Views IMPRESSION: DEGENERATIVE OSTEOARTHROSIS. NO ACUTE FINDINGS. Reading Location: [id number]
[2024-11-15 23:20] VITALS: BP 135/70; PULSE 61; RESP 16; TEMP 36.7; O2SAT 100
== END 2024-11-15 23:27 | disposition home or self-care (01) ==
PROVIDERS: Emergency Provider Emergency Medicine; PCP Internal Medicine; Visit Provider Emergency Medicine
DX: S76.011A Strain of muscle, fascia and tendon of right hip, initial encounter (principal); C91.10 Chronic lymphocytic leukemia of B-cell type not having achieved remission; I11.0 Hypertensive heart disease with heart failure; I50.9 Heart failure, unspecified; M16.11 Unilateral primary osteoarthritis, right hip; X58.XXXA Exposure to other specified factors, initial encounter; I25.10 Atherosclerotic heart disease of native coronary artery without angina pectoris; I25.2 Old myocardial infarction; Z95.5 Presence of coronary angioplasty implant and graft; Z79.82 Long term (current) use of aspirin; Z79.899 Other long term (current) drug therapy
CPT/HCPCS: 73502; 99282